=== PATIENT | male | born 1955 | race African-American/Black ===

== ENCOUNTER 2017-07-17 17:23 | Emergency (ER) | payer MEDICAID ==
[~2017-07-17] VITALS: Ht 172.7 cm; Wt 86.4 kg
[~2017-07-17 17:23] MED LIST: ALBU8I INH; COUM4TAB7 PO; CYCL-36 PO; IPRA17I INH; TRAM50TA PO
[2017-07-17 17:24] VITALS: BP 135/75; PULSE 86; RESP 18; TEMP 98.9; O2SAT 96
[2017-07-17] MEDS ORDERED: TRAM50TA PO (19:28)
[2017-07-17] MEDS ORDERED: MELO15TA20 PO (19:28)
[2017-07-17] MEDS ORDERED: AMLO5TAB2 PO (19:28)
[2017-07-17] MEDS ORDERED: APIX2.5T PO (19:28)
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
== END 2017-07-17 19:47 | disposition left against medical advice (07) ==
LOC: NEPK 17:23
DX: M54.41 Lumbago with sciatica, right side (principal); I10 Essential (primary) hypertension; Z79.899 Other long term (current) drug therapy
CPT/HCPCS: 99281

== ENCOUNTER 2018-08-03 14:29 | Inpatient (IN) ==
[2018-08-03] MEDS ORDERED: Morphine Inj 4 MG/ML Vial IV.PUSH ONE (14:42)
[2018-08-03] MEDS ORDERED: Sodium Chlor 0.9% Inj 500 ML IV.SIG SCH (15:00)
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
[2018-08-03 15:12] LABS: Baso % (Auto) 0.6 % (0.0-2.0); Eos # (Auto) 0.2 th/mm3 (0.0-0.4); Eos % (Auto) 2.6 % (0.0-4.0); Hematocrit 55.5 % (39.0-51.0); Hemoglobin 17.8 gm/dL (13.0-17.0); Lymph # (Auto) 3.1 th/mm3 (1.0-4.8); Lymph % (Auto) 43.3 % (9.0-44.0); Mean Corpuscular HGB Conc 32.1 % (32.0-36.0); Mean Corpuscular Hemoglobin 32.8 pg (27.0-34.0); Mean Corpuscular Volume 102.1 fL (80.0-100.0); Mono # (Auto) 0.2 th/mm3 (0.0-0.9); Mono % (Auto) 3.2 % (0.0-8.0); Neut # (Auto) 3.6 th/mm3 (1.8-7.7); Neut % (Auto) 50.3 % (16.0-70.0); Platelet Count 114 th/mm3 (150-450); Red Blood Count 5.43 mil/mm3 (4.50-5.90); White Blood Count 7.1 th/mm3 (4.0-11.0)
[2018-08-03 15:37] LABS: Alanine Aminotransferase 50 U/L (12-78); Albumin 4.1 g/dL (3.4-5.0); Anion Gap 10 meq/L (5-15); Aspartate Aminotransferase 44 U/L (15-37); Blood Urea Nitrogen 11 mg/dL (7-18); Calcium 8.3 mg/dL (8.5-10.1); Carbon Dioxide 21.7 meq/L (21.0-32.0); Chloride 106 meq/L (98-107); Glomerular Filtration Rate 45 mL/min (>89); Glucose,Random 216 mg/dL (74-106); Lipase 105 U/L (73-393); Potassium 4.8 meq/L (3.5-5.1); Sodium 138 meq/L (136-145)
[2018-08-03 15:38] LABS: Alkaline Phosphatase 83 U/L (45-117); Troponin I 0.08 ng/mL (0.02-0.05)
--- NOTE | 2018-08-03 15:42 | XR ---
EXAM DATE: 08/03/2018 3:26 PM EST AGE/SEX: 62 years / Male INDICATIONS: Chest pain. CLINICAL DATA: This is the patient's initial encounter. Patient reports that signs and symptoms have been present for 1 day and indicates a pain score of 3/10. MEDICAL/SURGICAL HISTORY: None. None. COMPARISON: [facility], XR CHEST PA AND LAT, 03/14/2016. . FINDINGS: The lungs are clear without infiltrate, nodule, or mass. There is no appreciable pleural effusion for technique. Heart and mediastinum are unremarkable. There are degenerative changes in both shoulders chronic in nature and not adequately characterized b y this technique. CONCLUSION: No acute cardiopulmonary disease. Electronically signed by: Abraham Agustin MD Board Certified Radiologist 08/03/2018 3:41 PM EST
--- NOTE | 2018-08-03 16:35 | CT ---
EXAM DATE: 08/03/2018 4:29 PM EST AGE/SEX: 62 years / Male INDICATIONS: Left sided chest pain and shortness of breath today. CLINICAL DATA: This is the patient's initial encounter. Patient reports that signs and symptoms have been present for 1 day and indicates a pain score of 7/10. MEDICAL/SURGICAL HISTORY: Deep venous thrombosis. Diabetes. Hypertension. pulmonary embolism No ne. RADIATION DOSE: 21.52 CTDI (mGy) COMPARISON: [facility], CHEST 1V SINGLE AP, 08/03/2018. . TECHNIQUE: Volumetric scanning was performed using a multi-row detector CT scanner during bolus infu janie of 49 ml Visipaque 320 (iodixanol) nonionic water-soluble contrast as a single exam dose. The d marilou was post processed with a variety of visualization algorithms including full volume maximum inten sity projection and sliding thin slab reformation. Using automated exposure control and adjustment o f the mA and/or kV according to patient size, radiation dose was kept as low as reasonably achievable to obtain optimal diagnostic quality images. DICOM format image data is available electronically fo r review and comparison. FINDINGS: There is extensive pulmonary embolus within bilateral upper lobes, bilateral lower lobes and some inv olvement of the right main pulmonary artery, right middle lobe. There are scattered areas of scarring in the lungs with vague areas of atelectasis and/or infiltrate in right middle lobe, left upper lobe , left lower lobe and the right upper lobe posteriorly. CONCLUSION: 1. Extensive PE. Electronically signed by: Abraham Agustin MD Board Certified Radiologist 08/03/2018 4:34 PM EST
[2018-08-03] MEDS ORDERED: Heparin 10,000 UNITS/10 ML Vial (for IV use) IV.PUSH STA (16:46)
[2018-08-03 17:05] LABS: Activated Partial Thrombo Time 26.1 sec (23.4-31.7); INR 1.1 Ratio
[2018-08-03] MEDS: Heparin Drip 25,000 UNIT/250 ML BAG IV.CONT PRN (17:10)
[2018-08-03] MEDS ORDERED: Bisacodyl 10 MG Supp RECTAL PRN (18:28)
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
[2018-08-03] MEDS: Senna/Docusate Sodium 8.6/50 MG Tablet PO SCH (21:10)
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
[2018-08-04 02:39] LABS: Hematocrit 47.5 % (39.0-51.0); Hemoglobin 15.9 gm/dL (13.0-17.0); Mean Corpuscular HGB Conc 33.5 % (32.0-36.0); Mean Corpuscular Hemoglobin 32.9 pg (27.0-34.0); Mean Corpuscular Volume 98.3 fL (80.0-100.0); Mean Platelet Volume 7.4 fL (7.0-11.0); Platelet Count 106 th/mm3 (150-450); Red Blood Count 4.83 mil/mm3 (4.50-5.90)
[2018-08-04] MEDS ORDERED: Sod Chloride 0.9% Inj 1,000 ML IV.SIG SCH ×2 (06:36→11:00)
[2018-08-04] MEDS: Senna/Docusate Sodium 8.6/50 MG Tablet PO SCH ×2 (08:50→20:58)
--- NOTE | 2018-08-04 10:20 | P.PN ---
Subjective Interval history: Nursing denies any acute changes overnight except for the patient complaining of dizziness and some chest pain. When I talked to the patient he says he has no chest pain at this time, says he has been dizzy for the last month. Not short of breath. Physical Exam Vital signs: Vital Signs 08/03/18 14:33 08/03/18 14:45 08/03/18 15:56 Temperature 98.4 F Pulse Rate 112 H 114 H 107 H Respiratory Rate 16 16 Blood Pressure 83/63 L 86/65 L Pulse Oximetry 93 L 94 L 100 08/03/18 16:48 08/03/18 17:57 08/03/18 17:58 Temperature Pulse Rate 112 H 109 H Respiratory Rate 16 22 Blood Pressure 99/77 L 102/78 Pulse Oximetry 98 98 98 08/03/18 18:44 08/03/18 20:10 08/03/18 21:00 Temperature 97.7 F Pulse Rate 99 H Respiratory Rate 18 Blood Pressure 97/74 L Pulse Oximetry 98 100 99 08/03/18 22:00 08/03/18 23:00 08/03/18 23:29 Temperature 97.7 F Pulse Rate 116 H 98 H 97 H Respiratory Rate 18 Blood Pressure 96/67 L Pulse Oximetry 98 08/04/18 00:00 08/04/18 01:00 08/04/18 02:00 Temperature Pulse Rate 96 H 92 H 90 Respiratory Rate Blood Pressure Pulse Oximetry 08/04/18 03:00 08/04/18 04:00 08/04/18 05:00 Temperature 97.8 F Pulse Rate 90 88 88 Respiratory Rate 18 Blood Pressure 88/58 L Pulse Oximetry 94 L 08/04/18 06:00 Temperature Pulse Rate 88 Respiratory Rate Blood Pressure Pulse Oximetry Intake & Output 08/03/18 08/04/18 08/04/18 18:59 06:59 18:59 Intake Total 500 / 500 480 / 480 800 / 800 Balance 500 / 500 480 / 480 800 / 800 Weight 79.379 kg 82 kg Intake: IV 500 / 500 800 / 800 NS Inj 1,000 ML @ 500 mls/hr IV 800 / 800 .SIG BOLUS YARI Rx#:[id number] NS Inj 500 ML @ 1000 mls/hr IV. 500 / 500 SIG BOLUS YARI Rx#:[id number] Oral 480 / 480 Other: # Voids 0 Date of Last Bowel Movement 08/03/18 # Bowel Movements 0 Narrative: Clear lungs bilaterally, unlabored breathing Heart sounds regular rate and rhythm, no murmurs Abdomen soft Lower extremities nonedematous, nontender to deep palpation Results - Labs CBC & Chem 7: 08/06/18 05:14 08/06/18 05:14 Laboratory Results - last 24 hr 08/03/18 08/03/18 08/03/18 14:40 14:40 14:40 WBC 7.1 RBC 5.43 Hgb 17.8 H Hct 55.5 H MCV 102.1 H MCH 32.8 MCHC 32.1 RDW 15.0 Plt Count 114 L MPV 8.0 Neut % (Auto) 50.3 Lymph % (Auto) 43.3 White % (Auto) 3.2 Eos % (Auto) 2.6 Baso % (Auto) 0.6 Neut # (Auto) 3.6 Lymph # (Auto) 3.1 White # (Auto) 0.2 Eos # (Auto) 0.2 Baso # (Auto) 0.0 WBC Differential . Differential Comment Auto diff final PT INR APTT D-Dimer Quant (PE/DVT) 10.99 H Sodium 138 Potassium 4.8 Chloride 106 Carbon Dioxide 21.7 Anion Gap 10 BUN 11 Creatinine 1.86 H Estimated GFR 45 L POC Glucose Random Glucose 216 H Calcium 8.3 L Total Bilirubin 1.1 H AST 44 H ALT 50 Alkaline Phosphatase 83 Troponin I 0.08 H Total Protein 8.0 Albumin 4.1 Lipase 105 08/03/18 08/03/18 08/04/18 14:40 18:44 01:13 WBC RBC Hgb Hct MCV MCH MCHC RDW Plt Count MPV Neut % (Auto) Lymph % (Auto) White % (Auto) Eos % (Auto) Baso % (Auto) Neut # (Auto) Lymph # (Auto) White # (Auto) Eos # (Auto) Baso # (Auto) WBC Differential Differential Comment PT 11.0 INR 1.1 APTT 26.1 277.5 H* D-Dimer Quant (PE/DVT) Sodium Potassium Chloride Carbon Dioxide Anion Gap BUN Creatinine Estimated GFR POC Glucose 90 Random Glucose Calcium Total Bilirubin AST ALT Alkaline Phosphatase Troponin I Total Protein Albumin Lipase 08/04/18 08/04/18 08/04/18 02:34 02:34 05:11 WBC 7.0 RBC 4.83 Hgb 15.9 Hct 47.5 MCV 98.3 D MCH 32.9 MCHC 33.5 RDW 15.0 Plt Count 106 L MPV 7.4 Neut % (Auto) Lymph % (Auto) White % (Auto) Eos % (Auto) Baso % (Auto) Neut # (Auto) Lymph # (Auto) White # (Auto) Eos # (Auto) Baso # (Auto) WBC Differential Differential Comment PT INR APTT Greater than 277.5 H* 101.2 H* D D-Dimer Quant (PE/DVT) Sodium Potassium Chloride Carbon Dioxide Anion Gap BUN Creatinine Estimated GFR POC Glucose Random Glucose Calcium Total Bilirubin AST ALT Alkaline Phosphatase Troponin I Total Protein Albumin Lipase 08/04/18 08:48 WBC RBC Hgb Hct MCV MCH MCHC RDW Plt Count MPV Neut % (Auto) Lymph % (Auto) White % (Auto) Eos % (Auto) Baso % (Auto) Neut # (Auto) Lymph # (Auto) White # (Auto) Eos # (Auto) Baso # (Auto) WBC Differential Differential Comment PT INR APTT D-Dimer Quant (PE/DVT) Sodium Potassium Chloride Carbon Dioxide Anion Gap BUN Creatinine Estimated GFR POC Glucose 257 H Random Glucose Calcium Total Bilirubin AST ALT Alkaline Phosphatase Troponin I Total Protein Albumin Lipase - Imaging Impressions Venous Doppler Study 08/03/18 00:00 CONCLUSION: 1. Nonocclusive DVT on the right. Venous Doppler Study 08/03/18 00:00 CONCLUSION: 1. The study is negative for bilateral upper extremity deep venous thrombosis. Chest X-Ray 08/03/18 14:43 CONCLUSION: No acute cardiopulmonary disease. Chest CTA 08/03/18 15:48 CONCLUSION: 1. Extensive PE. Assessment and Plan - Plan Patient is a very pleasant 62-year-old -[place]i male with a past medical history of DVT, PE, diabetes, and hypertension who presents to the emergency room with a complaint of upper abdominal and chest pain as well as shortness of breath. He reports that he had a DVT in his left leg and subsequent PE about 4 or 5 years ago. He has not been on any anticoagulation. Pulmonary embolism -suspect chronic as well as acute -Continue heparin drip started in ED -Appreciate hematology input -Echocardiogram results pending Chest pain with elevated troponin -Could be due to demand ischemia versus right heart strain coupled with acute kidney injury, trending troponins, cardiology consultation pending, I have put a call out to interventional radiology to see if PE needs thrombolysis are not given the patient's borderline blood pressures -Echo results pending Acute kidney injury -bmp pending today -IVFs Chronic conditions: Hypertension-we will restart home medications if indicated when confirmed Diabetes-questionable if patient currently has diabetes. Monitor blood sugar and start sliding scale if indicated DVT prophylaxis: Heparin drip Addendum: Case discussed with Dr. Cintron from radiology and Dr. Quinonez from ICU. Patient likely good candidate for central line-based TPA, will do stat transfer.
[2018-08-04] MEDS ORDERED: Dextrose 50% in Water 50 ML Vial IV.PUSH PRN ×2 (11:20→12:59)
[2018-08-04 11:43] LABS: Calcium 8.2 mg/dL (8.5-10.1); Carbon Dioxide 23.7 meq/L (21.0-32.0); Potassium 4.1 meq/L (3.5-5.1)
[2018-08-04] MEDS ORDERED: Insulin NovoLOG Aspart Correctional Sugar Inj SQ SCH (12:00)
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
[2018-08-04] MEDS ORDERED: Alteplase Bolus 9 MG/9 ML Syringe IV.PUSH ONE (12:45)
[2018-08-04] MEDS ORDERED: ALTEPLASE DRIP IV.SIG ONE (13:00)
[2018-08-04] MEDS ORDERED: Alteplase Drip 40 MG in Syringe/Bag 1 EACH IV.SIG ONE (13:00)
--- NOTE | 2018-08-04 13:02 | ECHRPT ---
Indication: Shortness of Breath CONCLUSIONS Normal left ventricular size. Mild concentric left ventricular hypertrophy. The left ventricular systolic function is normal with an estimated ejection fraction in the range of 55-60%. The right atrial size is [id number] dilated. Trace mitral valve regurgitation. Mitral annular calcification is present. There is mild tricuspid valve regurgitation. The estimated pulmonary arterial pressure is 61 mmHg. Mild pulmonary valve regurgitation. The right ventricle is moderately dilated. The right ventricular systoilc function is mildly decreased. BP: / HR: Rhythm: MEASUREMENTS (Male / Female) Normal Values Technical Quality:Fair 2D ECHO LV Diastolic Diameter PLAX 3.2 cm 4.2 - 5.9 / 3.9 - 5.3 cm LV Systolic Diameter PLAX 2.3 cm IVS Diastolic Thickness 1.2 cm 0.6 - 1.0 / 0.6 - 0.9 cm LVPW Diastolic Thickness 1.2 cm 0.6 - 1.0 / 0.6 - 0.9 cm LV Relative Wall Thickness 0.7 RV Internal Dim ED PLAX 3.7 cm LVOT Diameter 2.1 cm Aortic Root Diameter 3.2 cm LA Systolic Diameter LX 2.5 cm 3.0 - 4.0 / 2.7 - 3.8 cm DOPPLER AV Peak Velocity 111.0 cm/s AV Peak Gradient 4.9 mmHg LVOT Peak Velocity 81.4 cm/s LVOT Peak Gradient 2.7 mmHg AV Area Cont Eq pk 2.5 cm Mitral E Point Velocity 36.0 cm/s Mitral A Point Velocity 47.9 cm/s Mitral E to A Ratio 0.8 LV E' Lateral Velocity 7.1 cm/s Mitral E to LV E' Lateral Ratio 5.1 LV E' Septal Velocity 4.0 cm/s Mitral E to LV E' Septal Ratio 8.9 TR Peak Velocity 357.0 cm/s TR Peak Gradient 51.0 mmHg Right Atrial Pressure 10.0 mmHg Pulmonary Artery Systolic Pressu 61.0 mmHg Right Ventricular Systolic Press 61.0 mmHg PV Peak Velocity 71.9 cm/s PV Peak Gradient 2.1 mmHg FINDINGS LEFT VENTRICLE Normal left ventricular size. Mild concentric left ventricular hypertrophy. The left ventricular systolic function is normal with an estimated ejection fraction in the range of 55-60%. RIGHT VENTRICLE The right ventricle is moderately dilated. The right ventricular systoilc function is mildly decreased. LEFT ATRIUM The left atrial size is normal. RIGHT ATRIUM The right atrial size is [id number] dilated. ATRIAL SEPTUM Normal atrial septal thickness without atrial level shunting by limited color doppler interrogation. AORTA The aortic root and proximal ascending aorta are normal in size on limited imaging. MITRAL VALVE Trace mitral valve regurgitation. Mitral annular calcification is present. AORTIC VALVE Trileaflet aortic valve. No aortic valve stenosis or regurgitation. TRICUSPID VALVE There is mild tricuspid valve regurgitation. The estimated pulmonary arterial pressure is 61 mmHg. PULMONARY VALVE Mild pulmonary valve regurgitation. VESSELS The inferior vena cava is normal in size. PERICARDIUM No pericardial effusion. Patrice Roland MD, FACC (Electronically Signed) Final Date:04 August 2018 13:01 Amended: 04 August 2018 13:19
[2018-08-04] MEDS: Sod Chloride 0.9% Inj 1,000 ML IV.CONT SCH (13:26)
[2018-08-04] MEDS: Pantoprazole Inj 40 MG Vial IV.PUSH SCH (13:26)
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
--- NOTE | 2018-08-04 15:32 | ECG ---
Date Performed: 08/03/2018 Time Performed: 14:36:24 PTAGE: 62 years EKG: SINUS TACHYCARDIA POSSIBLE RIGHT ATRIAL ENLARGEMENT POSSIBLE LEFT ATRIAL ENLARGEMENT INCOMP LETE RIGHT BUNDLE BRANCH BLOCK RIGHT VENTRICULAR HYPERTROPHY ST DEVIATION AND MODERATE T-WAVE ABNORMA LITY, CONSIDER ANTERIOR ISCHEMIA When compared to previous tracing, sinus rate is faster, and ST Depr ession and T wave invertions are more prominent, consider Ischemia. ABNORMAL ECG PREVIOUS TRACING : 06/30/2013 15.53 DOCTOR: Theron Gee Interpretating Date/Time 08/04/2018 15:31:37
[2018-08-04] MEDS: Heparin Drip 25,000 UNIT/250 ML BAG IV.CONT PRN (23:01)
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
[2018-08-05] MEDS: Pantoprazole Inj 40 MG Vial IV.PUSH SCH ×2 (02:45→13:09)
[2018-08-05] MEDS: Sod Chloride 0.9% Inj 1,000 ML IV.CONT SCH ×2 (03:29→16:18)
[2018-08-05] MEDS ORDERED: Chlorhexidine Gluconate 2% 1 Pack (2 Cloths) TOPICAL PRN (04:00)
[2018-08-05] MEDS: Chlorhexidine Gluconate 2% 1 Pack (2 Cloths) TOPICAL SCH (04:48)
[2018-08-05 05:47] LABS: Hematocrit 40.3 % (39.0-51.0); Hemoglobin 13.6 gm/dL (13.0-17.0); Mean Corpuscular HGB Conc 33.6 % (32.0-36.0); Mean Corpuscular Hemoglobin 33.3 pg (27.0-34.0); Mean Corpuscular Volume 99.1 fL (80.0-100.0); Mean Platelet Volume 7.9 fL (7.0-11.0); Platelet Count 78 th/mm3 (150-450); Red Blood Count 4.07 mil/mm3 (4.50-5.90); Red Cell Distribution Width 14.7 % (11.6-17.2); White Blood Count 4.7 th/mm3 (4.0-11.0)
[2018-08-05 06:01] LABS: Activated Partial Thrombo Time 74.4 sec (23.4-31.7)
[2018-08-05] MEDS: Acetaminophen 325 MG Tablet PO PRN (08:19)
[2018-08-05] MEDS: Senna/Docusate Sodium 8.6/50 MG Tablet PO SCH ×2 (08:20→21:02)
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
[2018-08-05 09:50] LABS: Carbon Dioxide 24.1 meq/L (21.0-32.0); Potassium 4.2 meq/L (3.5-5.1)
[2018-08-05 11:51] LABS: Baso % (Auto) 0.6 % (0.0-2.0); Eos # (Auto) 0.1 th/mm3 (0.0-0.4); Eos % (Auto) 3.8 % (0.0-4.0); Hematocrit 40.5 % (39.0-51.0); Hemoglobin 13.6 gm/dL (13.0-17.0); Lymph # (Auto) 1.2 th/mm3 (1.0-4.8); Lymph % (Auto) 29.8 % (9.0-44.0); Mean Corpuscular HGB Conc 33.5 % (32.0-36.0); Mean Corpuscular Hemoglobin 33.5 pg (27.0-34.0); Mean Corpuscular Volume 99.9 fL (80.0-100.0); Mean Platelet Volume 8.1 fL (7.0-11.0); Mono # (Auto) 0.2 th/mm3 (0.0-0.9); Mono % (Auto) 6.1 % (0.0-8.0); Neut # (Auto) 2.3 th/mm3 (1.8-7.7); Neut % (Auto) 59.7 % (16.0-70.0); Platelet Count 77 th/mm3 (150-450); Red Blood Count 4.05 mil/mm3 (4.50-5.90); Red Cell Distribution Width 14.8 % (11.6-17.2); White Blood Count 3.9 th/mm3 (4.0-11.0)
[2018-08-05 12:05] LABS: Activated Partial Thrombo Time 62.2 sec (23.4-31.7)
--- NOTE | 2018-08-05 14:57 | P.PNONC ---
Subjective Interval history: Patient lying in bed, visiting with his sister and nephew. He has no complaints at this time. He denies any bleeding. Status post Activase yesterday, currently on heparin drip. Denies any shortness of breath. Objective Vital Signs/Intake & Output: Vital Signs 08/04/18 16:00 08/04/18 18:00 08/04/18 19:48 Temperature 98.5 F Pulse Rate 82 83 Respiratory Rate 22 Blood Pressure 116/79 Pulse Oximetry 100 97 08/04/18 20:00 08/04/18 22:00 08/05/18 00:00 Temperature 98.8 F 98.2 F Pulse Rate 78 75 75 Respiratory Rate 19 16 Blood Pressure 98/71 L 98/65 L Pulse Oximetry 100 98 08/05/18 02:00 08/05/18 04:00 08/05/18 06:00 Temperature 98.3 F Pulse Rate 72 69 72 Respiratory Rate 15 Blood Pressure 97/61 L Pulse Oximetry 100 08/05/18 08:00 08/05/18 08:54 08/05/18 10:00 Temperature 97.7 F Pulse Rate 71 65 Respiratory Rate 17 Blood Pressure 102/66 Pulse Oximetry 97 97 08/05/18 12:00 08/05/18 13:22 08/05/18 14:00 Temperature 97.4 F L Pulse Rate 61 59 L 73 Respiratory Rate 15 18 Blood Pressure 111/63 Pulse Oximetry 100 Intake & Output 08/04/18 08/05/18 08/05/18 18:59 06:59 18:59 Intake Total 1041 / 1041 1250 / 1250 Output Total 500 / 500 425 / 425 Balance 541 / 541 825 / 825 Weight 81.3 kg Intake: IV 1041 / 1041 1250 / 1250 Heparin/D5W 25,000 U/250 mL 25, 250 / 250 000 unit In 250 ml @ Per Protocol IV.CONT TITRATE PRN Rx #:[id number] NS Inj 1,000 ML @ 75 mls/hr IV. 1000 / 1000 CONT .[id number] AMY Rx#:[id number] Activase Drip 41 MG In Bag/ 41 / 41 Syringe 1 EACH @ 40 mls/hr IV. SIG ONCE ONE Rx#:[id number] NS Inj 1,000 ML @ 500 mls/hr IV 1000 / 1000 .SIG BOLUS AMY Rx#:[id number] Oral 0 / 0 0 / 0 Output: Urine 500 / 500 425 / 425 Other: # Voids 0 Date of Last Bowel Movement 08/03/18 08/03/18 # Bowel Movements 0 0 Result Diagrams: 08/05/18 11:07 08/05/18 05:30 Laboratory Results: Laboratory Results - last 24 hr 08/04/18 08/04/18 08/05/18 12:45 18:32 01:10 WBC RBC Hgb Hct MCV MCH MCHC RDW Plt Count MPV Prelim Diff (Auto) Neut % (Auto) Lymph % (Auto) [place] % (Auto) Eos % (Auto) Baso % (Auto) Neut # (Auto) Lymph # (Auto) [place] # (Auto) Eos # (Auto) Baso # (Auto) WBC Differential Differential Comment APTT 68.5 H D 88.8 H D Fibrinogen Sodium Potassium Chloride Carbon Dioxide Anion Gap BUN Creatinine Estimated GFR POC Glucose Random Glucose Calcium Nasal Screen MRSA (PCR) Not detected 08/05/18 08/05/18 08/05/18 05:30 05:30 05:30 WBC 4.7 RBC 4.07 L Hgb 13.6 D Hct 40.3 MCV 99.1 MCH 33.3 MCHC 33.6 RDW 14.7 Plt Count 78 L MPV 7.9 Prelim Diff (Auto) Neut % (Auto) Lymph % (Auto) [place] % (Auto) Eos % (Auto) Baso % (Auto) Neut # (Auto) Lymph # (Auto) [place] # (Auto) Eos # (Auto) Baso # (Auto) WBC Differential Differential Comment APTT 74.4 H Fibrinogen 167 L Sodium 142 Potassium 4.2 Chloride 112 H Carbon Dioxide 24.1 Anion Gap 6 BUN 15 Creatinine 1.22 Estimated GFR 73 L POC Glucose Random Glucose 92 Calcium 8.0 L Nasal Screen MRSA (PCR) 08/05/18 08/05/18 08/05/18 05:33 11:05 11:07 WBC 3.9 L RBC 4.05 L Hgb 13.6 Hct 40.5 MCV 99.9 MCH 33.5 MCHC 33.5 RDW 14.8 Plt Count 77 L MPV 8.1 Prelim Diff (Auto) Account Management Specialist Neut % (Auto) 59.7 Lymph % (Auto) 29.8 [place] % (Auto) 6.1 Eos % (Auto) 3.8 Baso % (Auto) 0.6 Neut # (Auto) 2.3 Lymph # (Auto) 1.2 [place] # (Auto) 0.2 Eos # (Auto) 0.1 Baso # (Auto) 0.0 WBC Differential . Differential Comment Auto diff final APTT Fibrinogen Sodium Potassium Chloride Carbon Dioxide Anion Gap BUN Creatinine Estimated GFR POC Glucose 91 95 Random Glucose Calcium Nasal Screen MRSA (PCR) 08/05/18 11:07 WBC RBC Hgb Hct MCV MCH MCHC RDW Plt Count MPV Prelim Diff (Auto) Neut % (Auto) Lymph % (Auto) [place] % (Auto) Eos % (Auto) Baso % (Auto) Neut # (Auto) Lymph # (Auto) [place] # (Auto) Eos # (Auto) Baso # (Auto) WBC Differential Differential Comment APTT 62.2 H Fibrinogen 206 L Sodium Potassium Chloride Carbon Dioxide Anion Gap BUN Creatinine Estimated GFR POC Glucose Random Glucose Calcium Nasal Screen MRSA (PCR) Medications: Active Medications Generic Name Dose Route Start Last Admin Trade Name Freq PRN Reason Stop Dose Admin Acetaminophen 650 mg 08/03/18 18:28 08/05/18 08:19 Tylenol PO 650 mg Q4H PRN Administration Temp > 100.4 Albuterol 1 ampul 08/05/18 14:00 08/05/18 13:21 Duoneb Neb (Amy) NEB 1 ampul Q6HR WHILE AWAKE NEB AMY Administration Chlorhexidine Gluconate 3 pack 08/05/18 04:00 08/05/18 04:48 Chlorhexidine 2% Cloth TOPICAL 08/10/18 03:59 3 pack DAILY@0400 AMY Administration Heparin Sodium/Dextrose 25,000 unit in 250 mls @ 0 mls/hr 08/03/18 16:46 06:34 Heparin/D5w 25,000 U/250 Ml IV.CONT 800 units/hr TITRATE PRN 8 mls/hr Per Protocol Titration Protocol Per Protocol Sodium Chloride 1,000 mls @ 75 mls/hr 08/04/18 13:30 08/05/18 03:29 Ns Inj IV.CONT 75 mls/hr .[id number] AMY Administration Pantoprazole Sodium 40 mg 08/04/18 14:00 08/05/18 13:09 Protonix Inj IV.PUSH 40 mg Q12H AMY Administration Senna/Docusate Sodium 1 tab 08/03/18 21:00 08/05/18 08:20 Margoth-Colace PO Not Given BID AMY Sodium Chloride 2 ml 08/03/18 21:00 08/05/18 08:20 Ns Flush IV.FLUSH 2 ml BID AMY Administration Objective Remarks: GENERAL: Well-nourished, well-developed male patient, in no acute distress. SKIN: Warm and dry. HEAD: Normocephalic. Scar to right cheek, anterior to ear. Droop to right upper lip, chronic per pt. EYES: No scleral icterus. No injection or drainage. PEARLA MOUTH: [place], moist mucous membranes. No petechiae, ulcers or lesions noted. NECK: Supple, trachea midline. CARDIOVASCULAR: Regular rate and rhythm without murmurs. RESPIRATORY: Anterior breath sounds clear, equal bilaterally. No accessory muscle use. GASTROINTESTINAL: Abdomen soft, non-tender, nondistended. EXTREMITIES: No cyanosis, or edema. MUSCULOSKELETAL: Adequate muscle tone. NEUROLOGICAL: No obvious focal deficit. Awake, alert, and oriented x3. Equal strength bilaterally. PSYCHIATRIC: Appropriate mood and affect; insight and judgment normal. Assessment/Plan - Plan Plan: 1. Pulmonary embolism, with right heart strain, s/p activase infusion on . Continues on heparin drip, APTT 74.4 today. 2. Pt with past history of unprovoked DVTs, now with P.E. requiring activase. Pt will need lifelong anticoagulation. 3. Thrombocytopenia, possibly consumptive. We will continue to monitor. 4. Continue to monitor closely for bleeding and neuro checks per policy. - Attending Statement The exam, history, and the medical decision-making described in the above note were completed with the assistance of the mid-level provider. I reviewed and agree with the findings presented. I attest that I had a [id number] encounter with the patient on the same day, and personally performed and documented my assessment and findings in the medical record. Patient states that his dizziness and shortness of breath has improved Patient had TPA for extensive pulmonary embolism. He tolerated well Now he is on heparin drip He is doing well we will transition heparin to oral anticoagulant Tomorrow
[2018-08-05] MEDS: Insulin NovoLOG Aspart Correctional Sugar Inj SQ SCH ×2 (17:16→23:50)
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
--- NOTE | 2018-08-06 00:21 | P.PNCA ---
Subjective Interval history: No events overnight Breathing much better overall Medications and Allergies Active Medications: Active Medications Acetaminophen (Tylenol) 650 mg PO Q4H PRN PRN Reason: Temp > 100.4 Last Admin: 08/05/18 08:19 Dose: 650 mg Al Hydroxide/Mg Hydroxide (Milk Of Magnesia Liq) 30 ml PO Q12H PRN PRN Reason: Mild Constipation Albuterol (Duoneb Neb ([facility])) 1 ampul NEB Q6HR WHILE AWAKE NEB [facility] Last Admin: 08/05/18 19:18 Dose: 1 ampul Bisacodyl (Dulcolax Supp) 10 mg RECTAL DAILY PRN PRN Reason: SEVERE CONSITIPATION Chlorhexidine Gluconate (Chlorhexidine 2% Cloth) 3 pack TOPICAL DAILY@0400 YARI Stop: 08/10/18 03:59 Last Admin: 08/05/18 04:48 Dose: 3 pack Chlorhexidine Gluconate (Chlorhexidine 2% Cloth) 3 pack TOPICAL DAILY@0400 PRN PRN Reason: Extra cloth needed Stop: 08/10/18 03:59 Dextrose (D50w Vial) 50 ml IV.PUSH UNSCH PRN PRN Reason: PER HYPOGLYCEMIA PROTOCOL Glucagon (Glucagon Inj) 1 mg OTHER PRN PRN PRN Reason: for Hypoglycemia Protocol Heparin Sodium/Dextrose (Heparin/D5w 25,000 U/250 Ml) 25,000 unit in 250 mls @ 0 mls/hr IV.CONT TITRATE PRN; Protocol PRN Reason: Per Protocol Last Titration: 08/05/18 18:17 Dose: 800 units/hr, 8 mls/hr Sodium Chloride (Ns Inj) 1,000 mls @ 75 mls/hr IV.CONT .[id number] [facility] Last Infusion: 08/05/18 18:17 Dose: 75 mls/hr Insulin Aspart (Novolog Insulin Correctional Sugar Inj) 0 unit SQ Q6HR [facility]; Protocol Last Admin: 08/05/18 23:50 Dose: Not Given Lactulose (Lactulose Liq) 30 ml PO DAILY PRN PRN Reason: SEVERE CONSITIPATION Ondansetron HCl (Zofran Inj) 4 mg IV.PUSH Q6H PRN PRN Reason: NAUSEA OR VOMITING Pantoprazole Sodium (Protonix Inj) 40 mg IV.PUSH Q12H [facility] Last Admin: 08/05/18 13:09 Dose: 40 mg Senna/Docusate Sodium (Margoth-Colace) 1 tab PO BID [facility] Last Admin: 08/05/18 21:02 Dose: Not Given Sennosides (Senokot) 17.2 mg PO Q12H PRN PRN Reason: Moderate Constipation Sodium Chloride (Ns Flush) 2 ml IV.FLUSH PRN PRN PRN Reason: FLUSH AFTER USING IV ACCESS Sodium Chloride (Ns Flush) 2 ml IV.FLUSH BID [facility] Last Admin: 08/05/18 21:02 Dose: 2 ml Allergies Allergy/AdvReac Type Severity Reaction Status Date / Time No Known Allergies Allergy Unverified 05/16/18 16:37 Home Medications Medication Instructions Recorded Confirmed Type amlodipine mg PO DAILY 08/03/18 History tramadol mg PO PRN 08/03/18 History Physical Exam Vital signs: Vital Signs 08/05/18 02:00 08/05/18 04:00 08/05/18 06:00 Temperature 98.3 F Pulse Rate 72 69 72 Respiratory Rate 15 Blood Pressure 97/61 L Pulse Oximetry 100 08/05/18 08:00 08/05/18 08:54 08/05/18 10:00 Temperature 97.7 F Pulse Rate 71 65 Respiratory Rate 17 Blood Pressure 102/66 Pulse Oximetry 97 97 08/05/18 12:00 08/05/18 13:22 08/05/18 14:00 Temperature 97.4 F L Pulse Rate 61 59 L 73 Respiratory Rate 15 18 Blood Pressure 111/63 Pulse Oximetry 100 08/05/18 16:00 08/05/18 18:00 08/05/18 18:06 Temperature 97.6 F Pulse Rate 70 76 81 Respiratory Rate 17 Blood Pressure 115/66 Pulse Oximetry 99 08/05/18 19:00 08/05/18 19:20 08/05/18 19:57 Temperature 98 F Pulse Rate 72 76 84 Respiratory Rate 18 16 Blood Pressure 125/76 Pulse Oximetry 95 08/05/18 20:00 08/05/18 21:00 08/05/18 22:00 Temperature Pulse Rate 75 78 70 Respiratory Rate Blood Pressure Pulse Oximetry 95 08/05/18 22:57 08/06/18 00:00 Temperature 98.1 F Pulse Rate 80 88 Respiratory Rate 16 Blood Pressure 121/79 Pulse Oximetry 92 L Intake & Output 08/05/18 08/05/18 08/06/18 06:59 18:59 06:59 Intake Total 1250 / 1250 1361 / 1361 Output Total 425 / 425 1800 / 1800 Balance 825 / 825 -439 / -439 Weight 81.3 kg Intake: IV 1250 / 1250 1241 / 1241 Heparin/D5W 25,000 U/250 mL 25, 250 / 250 92 / 92 000 unit In 250 ml @ Per Protocol IV.CONT TITRATE PRN Rx #:[id number] NS Inj 1,000 ML @ 75 mls/hr IV. 1000 / 1000 1149 / 1149 CONT .[id number] YARI Rx#:[id number] Oral 0 / 0 120 / 120 Output: Urine 425 / 425 1800 / 1800 Other: # Voids 0 2 Date of Last Bowel Movement 08/03/18 08/03/18 08/05/18 # Bowel Movements 0 0 Narrative: GENERAL: Well-developed elderly -[place] male patient currently in mild distress. Mildly anxious SKIN: Focused skin assessment warm/dry. HEAD: Atraumatic. Normocephalic. EYES: Pupils equal and round. No scleral icterus. No injection or drainage. ENT: No nasal bleeding or discharge. Mucous membranes pink and moist. NECK: Trachea midline. No JVD. Previous well-healed tracheostomy scar CARDIOVASCULAR: Regular rate and rhythm. No murmur appreciated. RESPIRATORY: No accessory muscle use. Clear to auscultation. Breath sounds equal bilaterally. GASTROINTESTINAL: Abdomen soft, non-tender, nondistended. Hepatic and splenic margins not palpable. MUSCULOSKELETAL: No obvious deformities. No clubbing. NEUROLOGICAL: Awake and alert oriented x3. No obvious cranial nerve deficits. Motor grossly within normal limits. Normal speech. Results 08/05/18 11:07 08/05/18 05:30 Cardiac Enzymes 08/04/18 Range/Units 10:52 Troponin I 2.83 H* (0.02-0.05) ng/mL Coagulation 08/04/18 08/04/18 08/04/18 Range/Units 01:13 02:34 05:11 APTT 277.5 H* Greater than 277.5 H* 101.2 H* D (23.4-31.7) sec 08/04/18 08/04/18 08/05/18 Range/Units 09:37 18:32 01:10 APTT 29.7 D 68.5 H D 88.8 H D (23.4-31.7) sec 18 18 08/05/18 Range/Units 05:30 11:07 19:30 APTT 74.4 H 62.2 H 56.2 H (23.4-31.7) sec CBC 08/04/18 08/05/18 08/05/18 Range/Units 02:34 05:30 11:07 WBC 7.0 4.7 3.9 L (4.0-11.0) th/mm3 RBC 4.83 4.07 L 4.05 L (4.50-5.90) mil/mm3 Hgb 15.9 13.6 D 13.6 (13.0-17.0) gm/dL Hct 47.5 40.3 40.5 (39.0-51.0) % Plt Count 106 L 78 L 77 L (150-450) th/mm3 Neut # (Auto) 2.3 (1.8-7.7) th/mm3 Lymph # (Auto) 1.2 (1.0-4.8) th/mm3 [place] # (Auto) 0.2 (0.0-0.9) th/mm3 Eos # (Auto) 0.1 (0.0-0.4) th/mm3 Baso # (Auto) 0.0 (0.0-0.2) th/mm3 Comprehensive Metabolic Panel 08/04/18 08/05/18 Range/Units 10:52 05:30 Sodium 141 142 (136-145) meq/L Potassium 4.1 4.2 (3.5-5.1) meq/L Chloride 110 H 112 H (98-107) meq/L Carbon Dioxide 23.7 24.1 (21.0-32.0) meq/L BUN 20 H 15 (7-18) mg/dL Creatinine 1.38 H 1.22 (0.60-1.30) mg/dL Calcium 8.2 L 8.0 L (8.5-10.1) mg/dL Intake and Output 08/05/18 08/05/18 08/06/18 14:59 22:59 06:59 Intake Total 1361 / 1361 Output Total 1800 / 1800 Balance -439 / -439 Intake: IV 1241 / 1241 Heparin/D5W 25,000 U/250 mL 25, 92 / 92 000 unit In 250 ml @ Per Protocol IV.CONT TITRATE PRN Rx #:[id number] NS Inj 1,000 ML @ 75 mls/hr IV. 1149 / 1149 CONT .[id number] YARI Rx#:[id number] Oral 120 / 120 Output: Urine 1800 / 1800 Other: # Voids 2 Date of Last Bowel Movement 08/03/18 08/05/18 # Bowel Movements 0 Assessment and Plan - Assessment (1) DVT (deep venous thrombosis) Code(s): I82.409 - Acute embolism and thrombosis of unspecified deep veins of unspecified lower extremity Status: Acute (2) NSTEMI (non-ST elevated myocardial infarction) Code(s): I21.4 - Non-ST elevation (NSTEMI) myocardial infarction Status: Acute - Plan 1) DVT/PE with right heart strain s/p TPA, now on heparin drip Plan to transition to oral anticoagulation Unprovoked with previous history of DVT/PE Most likely life-long anticoagulation per Heme/Onc 2) Elevated troponin Type 2 due to right heart strain No further work up necessary 3) Plan to repeat echo before discharge
[2018-08-06] MEDS: Acetaminophen 325 MG Tablet PO PRN ×2 (01:09→07:46)
[2018-08-06] MEDS: Pantoprazole Inj 40 MG Vial IV.PUSH SCH ×2 (01:10→13:38)
[2018-08-06] MEDS: Sod Chloride 0.9% Inj 1,000 ML IV.CONT SCH ×3 (02:49→18:25)
[2018-08-06] MEDS: Chlorhexidine Gluconate 2% 1 Pack (2 Cloths) TOPICAL SCH (03:02)
[2018-08-06] MEDS: Heparin Drip 25,000 UNIT/250 ML BAG IV.CONT PRN (03:55)
[2018-08-06] MEDS: Insulin NovoLOG Aspart Correctional Sugar Inj SQ SCH ×4 (05:22→23:52)
[2018-08-06 06:26] LABS: Hematocrit 39.8 % (39.0-51.0); Hemoglobin 13.2 gm/dL (13.0-17.0); Mean Corpuscular HGB Conc 33.3 % (32.0-36.0); Mean Corpuscular Hemoglobin 33.4 pg (27.0-34.0); Mean Corpuscular Volume 100.4 fL (80.0-100.0); Mean Platelet Volume 8.1 fL (7.0-11.0); Platelet Count 83 th/mm3 (150-450); Red Blood Count 3.96 mil/mm3 (4.50-5.90); Red Cell Distribution Width 14.9 % (11.6-17.2)
[2018-08-06 06:55] LABS: Alanine Aminotransferase 32 U/L (12-78); Albumin 3.2 g/dL (3.4-5.0); Anion Gap 7 meq/L (5-15); Aspartate Aminotransferase 31 U/L (15-37); Blood Urea Nitrogen 11 mg/dL (7-18); Calcium 8.4 mg/dL (8.5-10.1); Carbon Dioxide 23.7 meq/L (21.0-32.0); Chloride 111 meq/L (98-107); Glomerular Filtration Rate 79 mL/min (>89); Glucose,Random 82 mg/dL (74-106); Potassium 3.8 meq/L (3.5-5.1); Sodium 142 meq/L (136-145)
[2018-08-06 06:59] LABS: Alkaline Phosphatase 53 U/L (45-117); Total Protein 6.2 g/dL (6.4-8.2)
[2018-08-06] MEDS: Senna/Docusate Sodium 8.6/50 MG Tablet PO SCH ×2 (09:02→21:05)
--- NOTE | 2018-08-06 09:54 | XR ---
EXAM DATE: 08/06/2018 9:49 AM EST AGE/SEX: 62 years / Male INDICATIONS: Respiratory distress. CLINICAL DATA: This is the patient's subsequent encounter. Patient reports that signs and symptoms h ave been present for 3 days and indicates a pain score of 0/10. MEDICAL/SURGICAL HISTORY: Hypertension. Diabetes mellitus type II. Inguinal hernia. Pulmonary embolism. None. COMPARISON: C, CHEST 1V SINGLE AP, 08/03/2018. . FINDINGS: The heart is mildly prominent but stable. The pulmonary vascular pattern is normal. The lungs are ye ar. Degenerative changes are noted throughout the thoracic spine and bilateral shoulders. Marked suba cromial space narrowing is noted bilaterally suggesting rotator cuff pathology bilaterally. Clinical correlation is recommended. CONCLUSION: 1. Stable mild cardiomegaly. 2. No focal infiltrate or pulmonary vascular congestion. 3. Degenerative changes throughout the thoracic spine and the bilateral shoulders. 4. Marked subacromial space narrowing bilaterally suggesting rotator cuff pathology bilaterally. Cli nical correlation is recommended. Electronically signed by: Joe Gonzáles MD Board Certified Radiologist 08/06/2018 9:53 AM EST
--- NOTE | 2018-08-06 11:48 | P.PNIM ---
Subjective Interval history: Sleeping, wakes up for exam. Says he is doing all right. Denies any chest pain. Says he lives alone. Says he is not been walking around much. Physical Exam Vital signs: Vital Signs 08/05/18 12:00 08/05/18 13:22 08/05/18 14:00 Temperature 97.4 F L Pulse Rate 61 59 L 73 Respiratory Rate 15 18 Blood Pressure 111/63 Pulse Oximetry 100 08/05/18 16:00 08/05/18 18:00 08/05/18 18:06 Temperature 97.6 F Pulse Rate 70 76 81 Respiratory Rate 17 Blood Pressure 115/66 Pulse Oximetry 99 08/05/18 19:00 08/05/18 19:20 08/05/18 19:57 Temperature 98 F Pulse Rate 72 76 84 Respiratory Rate 18 16 Blood Pressure 125/76 Pulse Oximetry 95 08/05/18 20:00 08/05/18 21:00 08/05/18 22:00 Temperature Pulse Rate 75 78 70 Respiratory Rate Blood Pressure Pulse Oximetry 95 08/05/18 22:57 08/06/18 00:00 08/06/18 01:00 Temperature 98.1 F Pulse Rate 80 88 79 Respiratory Rate 16 Blood Pressure 121/79 Pulse Oximetry 92 L 08/06/18 02:00 08/06/18 03:00 08/06/18 04:00 Temperature 98 F Pulse Rate 74 69 72 Respiratory Rate 17 Blood Pressure 110/68 Pulse Oximetry 93 L 08/06/18 05:00 08/06/18 06:00 08/06/18 07:52 Temperature 97.8 F Pulse Rate 67 76 72 Respiratory Rate 16 Blood Pressure 118/76 Pulse Oximetry 97 08/06/18 07:53 08/06/18 08:00 08/06/18 08:07 Temperature Pulse Rate 72 65 Respiratory Rate 18 Blood Pressure Pulse Oximetry 97 92 L 08/06/18 09:00 08/06/18 09:01 08/06/18 10:00 Temperature Pulse Rate 82 78 Respiratory Rate 14 Blood Pressure Pulse Oximetry 08/06/18 11:00 Temperature Pulse Rate 84 Respiratory Rate Blood Pressure Pulse Oximetry Intake & Output 08/05/18 08/06/18 08/06/18 18:59 06:59 18:59 Intake Total 1361 / 1361 1249 / 1249 Output Total 1800 / 1800 500 / 500 Balance -439 / -439 749 / 749 Weight 82 kg Intake: IV 1241 / 1241 1009 / 1009 Heparin/D5W 25,000 U/250 mL 25, 92 / 92 158 / 158 000 unit In 250 ml @ Per Protocol IV.CONT TITRATE PRN Rx #:[id number] NS Inj 1,000 ML @ 75 mls/hr IV. 1149 / 1149 851 / 851 CONT .[id number] YARI Rx#:[id number] Oral 120 / 120 240 / 240 Output: Urine 1800 / 1800 500 / 500 Other: # Voids 2 Date of Last Bowel Movement 08/03/18 08/05/18 08/04/18 # Bowel Movements 0 Narrative: GENERAL: Patient sleeping, wakes up for exam. SKIN: Warm and dry. HEAD: Normocephalic. EYES: No scleral icterus. No injection or drainage. NECK: Supple, trachea midline. No JVD. CARDIOVASCULAR: Regular rate and rhythm without murmurs, gallops, or rubs. RESPIRATORY: Breath sounds equal bilaterally. No accessory muscle use. GASTROINTESTINAL: Abdomen soft, non-tender, nondistended. MUSCULOSKELETAL: No cyanosis, or edema. BACK: Nontender without obvious deformity. No CVA tenderness. Results - Labs CBC & Chem 7: 08/06/18 05:14 08/06/18 05:14 Laboratory Results - last 24 hr 08/05/18 08/05/18 08/05/18 11:07 11:07 17:14 WBC 3.9 L RBC 4.05 L Hgb 13.6 Hct 40.5 MCV 99.9 MCH 33.5 MCHC 33.5 RDW 14.8 Plt Count 77 L MPV 8.1 Prelim Diff (Auto) [employer] Neut % (Auto) 59.7 Lymph % (Auto) 29.8 Robertson % (Auto) 6.1 Eos % (Auto) 3.8 Baso % (Auto) 0.6 Neut # (Auto) 2.3 Lymph # (Auto) 1.2 Robertson # (Auto) 0.2 Eos # (Auto) 0.1 Baso # (Auto) 0.0 WBC Differential . Differential Comment Auto diff final APTT 62.2 H Fibrinogen 206 L Sodium Potassium Chloride Carbon Dioxide Anion Gap BUN Creatinine Estimated GFR POC Glucose 99 Random Glucose Calcium Total Bilirubin AST ALT Alkaline Phosphatase Total Protein Albumin 12/18/18 12/18/18 12/19/18 19:30 23:13 05:13 WBC RBC Hgb Hct MCV MCH MCHC RDW Plt Count MPV Prelim Diff (Auto) Neut % (Auto) Lymph % (Auto) Robertson % (Auto) Eos % (Auto) Baso % (Auto) Neut # (Auto) Lymph # (Auto) Robertson # (Auto) Eos # (Auto) Baso # (Auto) WBC Differential Differential Comment APTT 56.2 H Fibrinogen Sodium Potassium Chloride Carbon Dioxide Anion Gap BUN Creatinine Estimated GFR POC Glucose 105 88 Random Glucose Calcium Total Bilirubin AST ALT Alkaline Phosphatase Total Protein Albumin 08/06/18 08/06/18 08/06/18 05:14 05:14 05:14 WBC 4.0 RBC 3.96 L Hgb 13.2 Hct 39.8 MCV 100.4 H MCH 33.4 MCHC 33.3 RDW 14.9 Plt Count 83 L MPV 8.1 Prelim Diff (Auto) Neut % (Auto) Lymph % (Auto) Robertson % (Auto) Eos % (Auto) Baso % (Auto) Neut # (Auto) Lymph # (Auto) Robertson # (Auto) Eos # (Auto) Baso # (Auto) WBC Differential Differential Comment APTT 48.0 H Fibrinogen Sodium 142 Potassium 3.8 Chloride 111 H Carbon Dioxide 23.7 Anion Gap 7 BUN 11 Creatinine 1.15 Estimated GFR 79 L POC Glucose Random Glucose 82 Calcium 8.4 L Total Bilirubin 0.9 AST 31 ALT 32 Alkaline Phosphatase 53 Total Protein 6.2 L D Albumin 3.2 L - Imaging Impressions Chest X-Ray 08/06/18 06:00 CONCLUSION: 1. Stable mild cardiomegaly. 2. No focal infiltrate or pulmonary vascular congestion. 3. Degenerative changes throughout the thoracic spine and the bilateral shoulders. 4. Marked subacromial space narrowing bilaterally suggesting rotator cuff pathology bilaterally. Clinical correlation is recommended. Assessment and Plan - Plan //Acute unprovoked extensive bilateral pulmonary embolism //Hypotension-resolved //Elevated troponin secondary to RV strain //Acute kidney injury-resolved //Lower extremity DVT //Hypertension //Diabetes //History of DVT and PE in 2012 PLAN: NEURO: -Patient denies any pain -No long-acting sedation -Hold tramadol, use Tylenol if needed RESP/CV: -CTA reviewed personally and discussed with hematology Dr. Roberts -Patient meets criteria for TPA administration. (Extensive bilateral PE with severe clot burden, hypotension, elevated troponin and Echo indicating RV strain ) -s/p alteplase 9 mg IV bolus, followed by 41 mg infusion over 1 hour (total 50 mg) -Continue IV heparin per protocol -Elevated troponin secondary to RV strain and massive pulmonary embolism -2D Echo right ventricle is moderately dilated. The right ventricular systolic function is mildly decreased. TAPSE not calculated -Cardiology Dr. Kelly is following -Hold amlodipine -Pulmonary consulted for long-term follow-up, has seen Dr. Barrera before -Need lifelong anticoagulation = 08/06. Patient will need PT and OT evaluation. May need rehab. Continue on heparin drip as per hematology. Cardiology following. Patient will need repeat echo prior to discharge as per cardiology. Plan transition to by mouth anticoagulation. GI: -Cardiac diet, IV Protonix 40 mg every 12 : -Monitor renal function closely. Creatinine improving -NS 75 ml per hour -Creatinine on admission was 1.86 improved to 1.4 -Continue to trend, ORAL most likely secondary to dehydration and hypoperfusion = AK I resolved. ID: -No antibiotics. Monitor for infection HEME: -Monitor CBC, coags -Status post IV TPA and continue IV heparin infusion as above //Thrombocytopenia. Platelets 8514 on admission. We will continue to monitor. ENDO: -Electrolyte replacement per protocol -Sliding scale insulin PROPH: -Bilateral lower extremity SCDs. IV Protonix -IV Heparin LINES: -Utilize peripheral IVs, central line if needed Discussed Condition With: Patient, nurse Discharge Planning: Pending PT and OT evaluation Patient may need rehab. Pending transition to by mouth of the coagulation as per hematology Cardiology would like to repeat echocardiogram prior to discharge.
[2018-08-06] MEDS ORDERED: Heparin Drip 25,000 UNIT/250 ML BAG IV.CONT PRN (14:04)
--- NOTE | 2018-08-06 14:19 | P.PNONC ---
Subjective Interval history: Patient lying in bed, no acute distress. He denies any bleeding. He continues on heparin drip. He states his headache is gone. He had one episode of dizziness when he got up to go to the bathroom. He states that was his first time out of bed in a few days. He successfully worked with physical therapy today. Objective Vital Signs/Intake & Output: Vital Signs 08/05/18 16:00 08/05/18 18:00 08/05/18 18:06 Temperature 97.6 F Pulse Rate 70 76 81 Respiratory Rate 17 Blood Pressure 115/66 Pulse Oximetry 99 08/05/18 19:00 08/05/18 19:20 08/05/18 19:57 Temperature 98 F Pulse Rate 72 76 84 Respiratory Rate 18 16 Blood Pressure 125/76 Pulse Oximetry 95 08/05/18 20:00 08/05/18 21:00 08/05/18 22:00 Temperature Pulse Rate 75 78 70 Respiratory Rate Blood Pressure Pulse Oximetry 95 08/05/18 22:57 08/06/18 00:00 08/06/18 01:00 Temperature 98.1 F Pulse Rate 80 88 79 Respiratory Rate 16 Blood Pressure 121/79 Pulse Oximetry 92 L 08/06/18 02:00 08/06/18 03:00 08/06/18 04:00 Temperature 98 F Pulse Rate 74 69 72 Respiratory Rate 17 Blood Pressure 110/68 Pulse Oximetry 93 L 08/06/18 05:00 08/06/18 06:00 08/06/18 07:52 Temperature 97.8 F Pulse Rate 67 76 72 Respiratory Rate 16 Blood Pressure 118/76 Pulse Oximetry 97 08/06/18 07:53 08/06/18 08:00 08/06/18 08:07 Temperature Pulse Rate 72 65 Respiratory Rate 18 Blood Pressure Pulse Oximetry 97 92 L 08/06/18 09:00 08/06/18 09:01 08/06/18 10:00 Temperature Pulse Rate 82 78 Respiratory Rate 14 Blood Pressure Pulse Oximetry 08/06/18 11:00 08/06/18 12:00 08/06/18 13:00 Temperature 98.0 F Pulse Rate 84 91 H 91 H Respiratory Rate 18 Blood Pressure 141/94 H Pulse Oximetry 95 Intake & Output 08/05/18 08/06/18 08/06/18 18:59 06:59 18:59 Intake Total 1361 / 1361 1249 / 1249 Output Total 1800 / 1800 500 / 500 Balance -439 / -439 749 / 749 Weight 82 kg Intake: IV 1241 / 1241 1009 / 1009 Heparin/D5W 25,000 U/250 mL 25, 92 / 92 158 / 158 000 unit In 250 ml @ Per Protocol IV.CONT TITRATE PRN Rx #:[id number] NS Inj 1,000 ML @ 75 mls/hr IV. 1149 / 1149 851 / 851 CONT .[id number] YARI Rx#:[id number] Oral 120 / 120 240 / 240 Output: Urine 1800 / 1800 500 / 500 Other: # Voids 2 Date of Last Bowel Movement 08/03/18 08/05/18 08/04/18 # Bowel Movements 0 Result Diagrams: 08/06/18 05:14 08/06/18 05:14 Laboratory Results: Laboratory Results - last 24 hr 08/05/18 08/05/18 08/05/18 17:14 19:30 23:13 WBC RBC Hgb Hct MCV MCH MCHC RDW Plt Count MPV APTT 56.2 H Sodium Potassium Chloride Carbon Dioxide Anion Gap BUN Creatinine Estimated GFR POC Glucose 99 105 Random Glucose Calcium Total Bilirubin AST ALT Alkaline Phosphatase Total Protein Albumin 08/06/18 08/06/18 08/06/18 05:13 05:14 05:14 WBC 4.0 RBC 3.96 L Hgb 13.2 Hct 39.8 MCV 100.4 H MCH 33.4 MCHC 33.3 RDW 14.9 Plt Count 83 L MPV 8.1 APTT 48.0 H Sodium Potassium Chloride Carbon Dioxide Anion Gap BUN Creatinine Estimated GFR POC Glucose 88 Random Glucose Calcium Total Bilirubin AST ALT Alkaline Phosphatase Total Protein Albumin 08/06/18 08/06/18 05:14 13:16 WBC RBC Hgb Hct MCV MCH MCHC RDW Plt Count MPV APTT Sodium 142 Potassium 3.8 Chloride 111 H Carbon Dioxide 23.7 Anion Gap 7 BUN 11 Creatinine 1.15 Estimated GFR 79 L POC Glucose 147 H Random Glucose 82 Calcium 8.4 L Total Bilirubin 0.9 AST 31 ALT 32 Alkaline Phosphatase 53 Total Protein 6.2 L D Albumin 3.2 L Imaging Studies: Impressions Chest X-Ray 08/06/18 06:00 CONCLUSION: 1. Stable mild cardiomegaly. 2. No focal infiltrate or pulmonary vascular congestion. 3. Degenerative changes throughout the thoracic spine and the bilateral shoulders. 4. Marked subacromial space narrowing bilaterally suggesting rotator cuff pathology bilaterally. Clinical correlation is recommended. Medications: Active Medications Generic Name Dose Route Start Last Admin Trade Name Freq PRN Reason Stop Dose Admin Acetaminophen 650 mg 08/03/18 18:28 08/06/18 07:46 Tylenol PO 650 mg Q4H PRN Administration Temp > 100.4 Albuterol 1 ampul 08/05/18 14:00 08/06/18 08:05 Duoneb Neb ([facility]) NEB 1 ampul Q6HR WHILE AWAKE NEB [facility] Administration Chlorhexidine Gluconate 3 pack 08/05/18 04:00 08/06/18 03:02 Chlorhexidine 2% Cloth TOPICAL 08/10/18 03:59 Not Given DAILY@0400 [facility] Sodium Chloride 1,000 mls @ 75 mls/hr 08/04/18 13:30 08/06/18 05:04 Ns Inj IV.CONT Not Given .[id number] [facility] Insulin Aspart 0 unit 08/05/18 18:00 08/06/18 13:22 Novolog Insulin Correctional Sugar Inj SQ Not Given Q6HR [facility] Protocol Pantoprazole Sodium 40 mg 08/04/18 14:00 08/06/18 13:38 Protonix Inj IV.PUSH 40 mg Q12H [facility] Administration Senna/Docusate Sodium 1 tab 08/03/18 21:00 08/06/18 09:02 Margoth-Colace PO Not Given BID [facility] Sodium Chloride 2 ml 08/03/18 21:00 08/06/18 09:02 Ns Flush IV.FLUSH Not Given BID [facility] Objective Remarks: GENERAL: Well-nourished, well-developed male patient, in no acute distress. SKIN: Warm and dry. HEAD: Normocephalic. Scar to right cheek, anterior to ear. Droop to right upper lip, chronic per pt. EYES: No scleral icterus. No injection or drainage. PEARLA MOUTH: [place], moist mucous membranes. No petechiae, ulcers or lesions noted. NECK: Supple, trachea midline. CARDIOVASCULAR: Regular rate and rhythm without murmurs. RESPIRATORY: Anterior breath sounds clear, equal bilaterally. No accessory muscle use. GASTROINTESTINAL: Abdomen soft, non-tender, nondistended. EXTREMITIES: No cyanosis, or edema. MUSCULOSKELETAL: Adequate muscle tone. NEUROLOGICAL: No obvious focal deficit. Awake, alert, and oriented x3. Equal strength bilaterally. PSYCHIATRIC: Appropriate mood and affect; insight and judgment normal. Assessment/Plan - Plan Plan: 1. Pulmonary embolism, with right heart strain, s/p activase infusion on . Continues on heparin drip, APTT 48 today. We will transition him to coumadin, as he is unable to afford NOAC. Continue heparin gtt per protocol until INR therapeutic between 2-3. 2. Pt with past history of unprovoked DVTs, now with P.E. requiring activase. Pt will need lifelong anticoagulation. 3. Thrombocytopenia, improving, possibly consumptive. We will continue to monitor. 4. Continue to monitor closely for bleeding and neuro checks per policy. - Attending Statement The exam, history, and the medical decision-making described in the above note were completed with the assistance of the mid-level provider. I reviewed and agree with the findings presented. I attest that I had a [id number] encounter with the patient on the same day, and personally performed and documented my assessment and findings in the medical record. Patient feels better. He does not have any more headache, dizziness or shortness of breath Patient is still on heparin, transition to either Coumadin or NOAC Consumptive thrombocytopenia, expect to improve in the next several days I have recommended lifelong anticoagulation.
--- NOTE | 2018-08-06 14:29 | P.PNCA ---
Subjective Interval history: No events over night No chest pain/SOB Medications and Allergies Active Medications: Active Medications Acetaminophen (Tylenol) 650 mg PO Q4H PRN PRN Reason: Temp > 100.4 Last Admin: 08/06/18 07:46 Dose: 650 mg Al Hydroxide/Mg Hydroxide (Milk Of Magnesia Liq) 30 ml PO Q12H PRN PRN Reason: Mild Constipation Albuterol (Duoneb Neb ([facility])) 1 ampul NEB Q6HR WHILE AWAKE NEB [facility] Last Admin: 08/06/18 08:05 Dose: 1 ampul Apixaban (Eliquis) 5 mg PO BID [facility] Bisacodyl (Dulcolax Supp) 10 mg RECTAL DAILY PRN PRN Reason: SEVERE CONSITIPATION Chlorhexidine Gluconate (Chlorhexidine 2% Cloth) 3 pack TOPICAL DAILY@0400 [facility] Stop: 08/10/18 03:59 Last Admin: 08/06/18 03:02 Dose: Not Given Chlorhexidine Gluconate (Chlorhexidine 2% Cloth) 3 pack TOPICAL DAILY@0400 PRN PRN Reason: Extra cloth needed Stop: 08/10/18 03:59 Dextrose (D50w Vial) 50 ml IV.PUSH UNSCH PRN PRN Reason: PER HYPOGLYCEMIA PROTOCOL Glucagon (Glucagon Inj) 1 mg OTHER PRN PRN PRN Reason: for Hypoglycemia Protocol Sodium Chloride (Ns Inj) 1,000 mls @ 75 mls/hr IV.CONT .[id number] [facility] Last Admin: 08/06/18 05:04 Dose: Not Given Heparin Sodium/Dextrose (Heparin/D5w 25,000 U/250 Ml) 25,000 unit in 250 mls @ 0 mls/hr IV.CONT TITRATE PRN; Protocol PRN Reason: Per Protocol Stop: 08/06/18 20:00 Insulin Aspart (Novolog Insulin Correctional Sugar Inj) 0 unit SQ Q6HR [facility]; Protocol Last Admin: 08/06/18 13:22 Dose: Not Given Lactulose (Lactulose Liq) 30 ml PO DAILY PRN PRN Reason: SEVERE CONSITIPATION Ondansetron HCl (Zofran Inj) 4 mg IV.PUSH Q6H PRN PRN Reason: NAUSEA OR VOMITING Pantoprazole Sodium (Protonix Inj) 40 mg IV.PUSH Q12H [facility] Last Admin: 12/19/18 13:38 Dose: 40 mg Senna/Docusate Sodium (Margoth-Colace) 1 tab PO BID [facility] Last Admin: 08/06/18 09:02 Dose: Not Given Sennosides (Senokot) 17.2 mg PO Q12H PRN PRN Reason: Moderate Constipation Sodium Chloride (Ns Flush) 2 ml IV.FLUSH PRN PRN PRN Reason: FLUSH AFTER USING IV ACCESS Sodium Chloride (Ns Flush) 2 ml IV.FLUSH BID [facility] Last Admin: 08/06/18 09:02 Dose: Not Given Allergies Allergy/AdvReac Type Severity Reaction Status Date / Time No Known Allergies Allergy Unverified 05/16/18 16:37 Home Medications Medication Instructions Recorded Confirmed Type amlodipine mg PO DAILY 08/03/18 History tramadol mg PO PRN 08/03/18 History Physical Exam Vital signs: Vital Signs 08/05/18 16:00 08/05/18 18:00 08/05/18 18:06 Temperature 97.6 F Pulse Rate 70 76 81 Respiratory Rate 17 Blood Pressure 115/66 Pulse Oximetry 99 08/05/18 19:00 08/05/18 19:20 08/05/18 19:57 Temperature 98 F Pulse Rate 72 76 84 Respiratory Rate 18 16 Blood Pressure 125/76 Pulse Oximetry 95 08/05/18 20:00 08/05/18 21:00 08/05/18 22:00 Temperature Pulse Rate 75 78 70 Respiratory Rate Blood Pressure Pulse Oximetry 95 08/05/18 22:57 08/06/18 00:00 08/06/18 01:00 Temperature 98.1 F Pulse Rate 80 88 79 Respiratory Rate 16 Blood Pressure 121/79 Pulse Oximetry 92 L 08/06/18 02:00 08/06/18 03:00 08/06/18 04:00 Temperature 98 F Pulse Rate 74 69 72 Respiratory Rate 17 Blood Pressure 110/68 Pulse Oximetry 93 L 08/06/18 05:00 08/06/18 06:00 08/06/18 07:52 Temperature 97.8 F Pulse Rate 67 76 72 Respiratory Rate 16 Blood Pressure 118/76 Pulse Oximetry 97 08/06/18 07:53 08/06/18 08:00 08/06/18 08:07 Temperature Pulse Rate 72 65 Respiratory Rate 18 Blood Pressure Pulse Oximetry 97 92 L 08/06/18 09:00 08/06/18 09:01 08/06/18 10:00 Temperature Pulse Rate 82 78 Respiratory Rate 14 Blood Pressure Pulse Oximetry 08/06/18 11:00 08/06/18 12:00 08/06/18 13:00 Temperature 98.0 F Pulse Rate 84 91 H 91 H Respiratory Rate 18 Blood Pressure 141/94 H Pulse Oximetry 95 Intake & Output 08/05/18 08/06/18 08/06/18 18:59 06:59 18:59 Intake Total 1361 / 1361 1249 / 1249 Output Total 1800 / 1800 500 / 500 Balance -439 / -439 749 / 749 Weight 82 kg Intake: IV 1241 / 1241 1009 / 1009 Heparin/D5W 25,000 U/250 mL 25, 92 / 92 158 / 158 000 unit In 250 ml @ Per Protocol IV.CONT TITRATE PRN Rx #:[id number] NS Inj 1,000 ML @ 75 mls/hr IV. 1149 / 1149 851 / 851 CONT .[id number] YARI Rx#:[id number] Oral 120 / 120 240 / 240 Output: Urine 1800 / 1800 500 / 500 Other: # Voids 2 Date of Last Bowel Movement 08/03/18 08/05/18 08/04/18 # Bowel Movements 0 Narrative: GENERAL: Patient sleeping, wakes up for exam. SKIN: Warm and dry. HEAD: Normocephalic. EYES: No scleral icterus. No injection or drainage. NECK: Supple, trachea midline. No JVD. CARDIOVASCULAR: Regular rate and rhythm without murmurs, gallops, or rubs. RESPIRATORY: Breath sounds equal bilaterally. No accessory muscle use. GASTROINTESTINAL: Abdomen soft, non-tender, nondistended. MUSCULOSKELETAL: No cyanosis, or edema. BACK: Nontender without obvious deformity. No CVA tenderness. Results 08/06/18 05:14 08/06/18 05:14 Cardiac Enzymes 08/06/18 Range/Units 05:14 AST 31 (15-37) U/L Coagulation 08/04/18 08/05/18 08/05/18 Range/Units 18:32 01:10 05:30 APTT 68.5 H D 88.8 H D 74.4 H (23.4-31.7) sec 08/05/18 08/05/18 08/06/18 Range/Units 11:07 19:30 05:14 APTT 62.2 H 56.2 H 48.0 H (23.4-31.7) sec CBC 08/05/18 08/05/18 08/06/18 Range/Units 05:30 11:07 05:14 WBC 4.7 3.9 L 4.0 (4.0-11.0) th/mm3 RBC 4.07 L 4.05 L 3.96 L (4.50-5.90) mil/mm3 Hgb 13.6 D 13.6 13.2 (13.0-17.0) gm/dL Hct 40.3 40.5 39.8 (39.0-51.0) % Plt Count 78 L 77 L 83 L (150-450) th/mm3 Neut # (Auto) 2.3 (1.8-7.7) th/mm3 Lymph # (Auto) 1.2 (1.0-4.8) th/mm3 [place] # (Auto) 0.2 (0.0-0.9) th/mm3 Eos # (Auto) 0.1 (0.0-0.4) th/mm3 Baso # (Auto) 0.0 (0.0-0.2) th/mm3 Comprehensive Metabolic Panel 08/05/18 08/06/18 Range/Units 05:30 05:14 Sodium 142 142 (136-145) meq/L Potassium 4.2 3.8 (3.5-5.1) meq/L Chloride 112 H 111 H (98-107) meq/L Carbon Dioxide 24.1 23.7 (21.0-32.0) meq/L BUN 15 11 (7-18) mg/dL Creatinine 1.22 1.15 (0.60-1.30) mg/dL Calcium 8.0 L 8.4 L (8.5-10.1) mg/dL AST 31 (15-37) U/L ALT 32 (12-78) U/L Alkaline Phosphatase 53 (45-117) U/L Total Protein 6.2 L D (6.4-8.2) g/dL Albumin 3.2 L (3.4-5.0) g/dL Intake and Output 12/18/18 12/19/18 12/19/18 22:59 06:59 14:59 Intake Total 1361 / 1361 1249 / 1249 Output Total 1800 / 1800 500 / 500 Balance -439 / -439 749 / 749 Intake: IV 1241 / 1241 1009 / 1009 Heparin/D5W 25,000 U/250 mL 25, 92 / 92 158 / 158 000 unit In 250 ml @ Per Protocol IV.CONT TITRATE PRN Rx #:[id number] NS Inj 1,000 ML @ 75 mls/hr IV. 1149 / 1149 851 / 851 CONT .[id number] YARI Rx#:[id number] Oral 120 / 120 240 / 240 Output: Urine 1800 / 1800 500 / 500 Other: # Voids 2 Date of Last Bowel Movement 08/05/18 08/04/18 # Bowel Movements 0 Weight 82 kg - Imaging and Cardiology Imaging: Impressions Chest X-Ray 08/06/18 06:00 CONCLUSION: 1. Stable mild cardiomegaly. 2. No focal infiltrate or pulmonary vascular congestion. 3. Degenerative changes throughout the thoracic spine and the bilateral shoulders. 4. Marked subacromial space narrowing bilaterally suggesting rotator cuff pathology bilaterally. Clinical correlation is recommended. Assessment and Plan - Assessment (1) DVT (deep venous thrombosis) Code(s): I82.409 - Acute embolism and thrombosis of unspecified deep veins of unspecified lower extremity Status: Acute (2) NSTEMI (non-ST elevated myocardial infarction) Code(s): I21.4 - Non-ST elevation (NSTEMI) myocardial infarction Status: Acute - Plan 1) DVT/PE with right heart strain s/p TPA, now on heparin drip Plan to transition to oral anticoagulation Unprovoked with previous history of DVT/PE Most likely life-long anticoagulation per Heme/Onc 2) Elevated troponin Type 2 due to right heart strain No further work up necessary 3) Plan to repeat echo tomorrow
--- NOTE | 2018-08-06 18:47 | P.PN ---
Subjective Interval history: C/O pain in back and shoulders. No SOB and is not wheezing. Physical Exam Vital signs: Vital Signs 08/05/18 19:00 08/05/18 19:20 08/05/18 19:57 Temperature 98 F Pulse Rate 72 76 84 Respiratory Rate 18 16 Blood Pressure 125/76 Pulse Oximetry 95 08/05/18 20:00 08/05/18 21:00 08/05/18 22:00 Temperature Pulse Rate 75 78 70 Respiratory Rate Blood Pressure Pulse Oximetry 95 08/05/18 22:57 08/06/18 00:00 08/06/18 01:00 Temperature 98.1 F Pulse Rate 80 88 79 Respiratory Rate 16 Blood Pressure 121/79 Pulse Oximetry 92 L 08/06/18 02:00 08/06/18 03:00 08/06/18 04:00 Temperature 98 F Pulse Rate 74 69 72 Respiratory Rate 17 Blood Pressure 110/68 Pulse Oximetry 93 L 08/06/18 05:00 08/06/18 06:00 08/06/18 07:52 Temperature 97.8 F Pulse Rate 67 76 72 Respiratory Rate 16 Blood Pressure 118/76 Pulse Oximetry 97 08/06/18 07:53 08/06/18 08:00 08/06/18 08:07 Temperature Pulse Rate 72 65 Respiratory Rate 18 Blood Pressure Pulse Oximetry 97 92 L 08/06/18 09:00 08/06/18 09:01 08/06/18 10:00 Temperature Pulse Rate 82 78 Respiratory Rate 14 Blood Pressure Pulse Oximetry 08/06/18 11:00 08/06/18 12:00 08/06/18 13:00 Temperature 98.0 F Pulse Rate 84 91 H 91 H Respiratory Rate 18 Blood Pressure 141/94 H Pulse Oximetry 95 08/06/18 14:00 08/06/18 15:00 08/06/18 16:00 Temperature 97.6 F Pulse Rate 89 79 80 Respiratory Rate 14 Blood Pressure 125/83 Pulse Oximetry 96 08/06/18 17:00 08/06/18 17:51 Temperature Pulse Rate 82 83 Respiratory Rate Blood Pressure Pulse Oximetry Intake & Output 08/05/18 08/06/18 08/06/18 18:59 06:59 18:59 Intake Total 1361 / 1361 1249 / 1249 1580 / 1580 Output Total 1800 / 1800 500 / 500 950 / 950 Balance -439 / -439 749 / 749 630 / 630 Weight 82 kg Intake: IV 1241 / 1241 1009 / 1009 1000 / 1000 Heparin/D5W 25,000 U/250 mL 25, 92 / 92 158 / 158 000 unit In 250 ml @ Per Protocol IV.CONT TITRATE PRN Rx #:[id number] NS Inj 1,000 ML @ 75 mls/hr IV. 1149 / 1149 851 / 851 1000 / 1000 CONT .[id number] [facility] Rx#:[id number] Oral 120 / 120 240 / 240 580 / 580 Output: Urine 1800 / 1800 500 / 500 950 / 950 Other: # Voids 2 Date of Last Bowel Movement 08/03/18 08/05/18 08/04/18 # Bowel Movements 0 Narrative: GENERAL: Mid aged A/A male alert talking. SKIN: Warm and dry. HEAD: Normocephalic. EYES: No scleral icterus. No injection or drainage. NECK: Supple, trachea midline. No JVD. CARDIOVASCULAR: Regular rate and rhythm without murmurs, gallops, or rubs. RESPIRATORY: Breath sounds equal bilaterally. Occ wheeze Right chest.No accessory muscle use. GASTROINTESTINAL: Abdomen soft, non-tender, nondistended. MUSCULOSKELETAL: No cyanosis, or edema. Has varicose veins. BACK: Nontender without obvious deformity. No CVA tenderness. Results - Labs CBC & Chem 7: 08/06/18 05:14 08/06/18 05:14 Laboratory Results - last 24 hr 08/05/18 08/05/18 08/06/18 19:30 23:13 05:13 WBC RBC Hgb Hct MCV MCH MCHC RDW Plt Count MPV APTT 56.2 H Sodium Potassium Chloride Carbon Dioxide Anion Gap BUN Creatinine Estimated GFR POC Glucose 105 88 Random Glucose Calcium Total Bilirubin AST ALT Alkaline Phosphatase Total Protein Albumin 08/06/18 08/06/18 08/06/18 05:14 05:14 05:14 WBC 4.0 RBC 3.96 L Hgb 13.2 Hct 39.8 MCV 100.4 H MCH 33.4 MCHC 33.3 RDW 14.9 Plt Count 83 L MPV 8.1 APTT 48.0 H Sodium 142 Potassium 3.8 Chloride 111 H Carbon Dioxide 23.7 Anion Gap 7 BUN 11 Creatinine 1.15 Estimated GFR 79 L POC Glucose Random Glucose 82 Calcium 8.4 L Total Bilirubin 0.9 AST 31 ALT 32 Alkaline Phosphatase 53 Total Protein 6.2 L D Albumin 3.2 L 08/06/18 08/06/18 13:16 17:48 WBC RBC Hgb Hct MCV MCH MCHC RDW Plt Count MPV APTT Sodium Potassium Chloride Carbon Dioxide Anion Gap BUN Creatinine Estimated GFR POC Glucose 147 H 84 Random Glucose Calcium Total Bilirubin AST ALT Alkaline Phosphatase Total Protein Albumin - Imaging Impressions Chest X-Ray 08/06/18 06:00 CONCLUSION: 1. Stable mild cardiomegaly. 2. No focal infiltrate or pulmonary vascular congestion. 3. Degenerative changes throughout the thoracic spine and the bilateral shoulders. 4. Marked subacromial space narrowing bilaterally suggesting rotator cuff pathology bilaterally. Clinical correlation is recommended. Assessment and Plan - Assessment (1) DVT (deep venous thrombosis) Code(s): I82.409 - Acute embolism and thrombosis of unspecified deep veins of unspecified lower extremity Status: Acute (2) NSTEMI (non-ST elevated myocardial infarction) Code(s): I21.4 - Non-ST elevation (NSTEMI) myocardial infarction Status: Acute (3) Pulmonary embolism Code(s): I26.99 - Other pulmonary embolism without acute cor pulmonale Status : Acute (4) Hypertension Code(s): I10 - Essential (primary) hypertension Status: Acute - Plan 1. O2 2 L N/C. 2. Cont heparin drip. 3. Coumadin 5 mg daily. 4. Albuterol Nebs qid prn 5. CBC,PT INR , BMP in am
[2018-08-07] MEDS: Pantoprazole Inj 40 MG Vial IV.PUSH SCH ×2 (01:00→14:27)
[2018-08-07] MEDS: Chlorhexidine Gluconate 2% 1 Pack (2 Cloths) TOPICAL SCH (03:00)
[2018-08-07] MEDS: Acetaminophen 325 MG Tablet PO PRN ×2 (04:29→20:49)
[2018-08-07] MEDS: Insulin NovoLOG Aspart Correctional Sugar Inj SQ SCH ×4 (05:26→23:53)
[2018-08-07] MEDS: Sod Chloride 0.9% Inj 1,000 ML IV.CONT SCH ×2 (05:38→17:10)
[2018-08-07] MEDS: Senna/Docusate Sodium 8.6/50 MG Tablet PO SCH ×2 (08:52→20:49)
[2018-08-07 11:25] LABS: INR 1.1 Ratio
[2018-08-07] MEDS: Heparin Drip 25,000 UNIT/250 ML BAG IV.CONT PRN (12:06)
--- NOTE | 2018-08-07 12:31 | ECHRPT ---
Indication: Shortness of breath CONCLUSIONS The left ventricular systolic function is normal with an estimated ejection fraction in the range of 55-60%. Wall thickness is normal. Normal left ventricular size. The right ventricle is moderately dilated. The right ventricular systoilc function is mildly decreased. The right atrial size is mildly dilated. There is moderate to severe tricuspid valve regurgitation. The estimated pulmonary arterial pressure is 70.5 mmHg. Mild to moderate pulmonary valve regurgitation. A left sided pleural effusion may be present. BP: / HR: Rhythm: Sinus MEASUREMENTS (Male / Female) Normal Values Technical Quality:Good 2D ECHO LV Diastolic Diameter PLAX 3.8 cm 4.2 - 5.9 / 3.9 - 5.3 cm LV Systolic Diameter PLAX 2.8 cm IVS Diastolic Thickness 1.0 cm 0.6 - 1.0 / 0.6 - 0.9 cm LVPW Diastolic Thickness 1.0 cm 0.6 - 1.0 / 0.6 - 0.9 cm LV Relative Wall Thickness 0.5 LVOT Diameter 2.0 cm M-MODE Aortic Root Diameter MM 3.1 cm LA Systolic Diameter MM 3.2 cm LA Ao Ratio MM 1.0 AV Cusp Separation MM 2.0 cm DOPPLER AV Peak Velocity 115.0 cm/s AV Peak Gradient 5.3 mmHg LVOT Peak Velocity 89.3 cm/s LVOT Peak Gradient 3.2 mmHg AV Area Cont Eq pk 2.4 cm Mitral E Point Velocity 54.8 cm/s Mitral A Point Velocity 77.5 cm/s Mitral E to A Ratio 0.7 LV E' Lateral Velocity 10.0 cm/s Mitral E to LV E' Lateral Ratio 5.5 LV E' Septal Velocity 8.0 cm/s Mitral E to LV E' Septal Ratio 6.9 TR Peak Velocity 389.0 cm/s TR Peak Gradient 60.5 mmHg Right Atrial Pressure 10.0 mmHg Pulmonary Artery Systolic Pressu 70.5 mmHg Right Ventricular Systolic Press 70.5 mmHg PV Peak Velocity 105.0 cm/s PV Peak Gradient 4.4 mmHg FINDINGS LEFT VENTRICLE The left ventricular systolic function is normal with an estimated ejection fraction in the range of 55-60%. Wall thickness is normal. Normal left ventricular size. RIGHT VENTRICLE The right ventricle is moderately dilated. The right ventricular systoilc function is mildly decreased. LEFT ATRIUM The left atrial size is normal. RIGHT ATRIUM The right atrial size is mildly dilated. ATRIAL SEPTUM Normal atrial septal thickness without atrial level shunting by limited color doppler interrogation. AORTA The aortic root and proximal ascending aorta are normal in size on limited imaging. MITRAL VALVE Structurally normal mitral valve. No mitral valve stenosis or regurgitation. AORTIC VALVE Trileaflet aortic valve. No aortic valve stenosis or regurgitation. TRICUSPID VALVE There is moderate to severe tricuspid valve regurgitation. The estimated pulmonary arterial pressure is 70.5 mmHg. PULMONARY VALVE Mild to moderate pulmonary valve regurgitation. VESSELS The inferior vena cava is normal in size. PERICARDIUM No pericardial effusion. OTHER FINDINGS A left sided pleural effusion may be present. [place] Vizcarra (Electronically Signed) Final Date:07 August 2018 12:30
--- NOTE | 2018-08-07 14:15 | P.PNONC ---
Subjective Interval history: Patient standing at sink, shaving. He denies any bleeding. He was still reports dizziness when he first stands and a headache this morning. The headache was relieved by Tylenol. Objective Vital Signs/Intake & Output: Vital Signs 08/06/18 15:00 08/06/18 16:00 08/06/18 17:00 Temperature 97.6 F Pulse Rate 79 80 82 Respiratory Rate 14 Blood Pressure 125/83 Pulse Oximetry 96 08/06/18 17:51 08/06/18 19:00 08/06/18 20:00 Temperature 98.9 F Pulse Rate 83 80 87 Respiratory Rate 16 Blood Pressure 130/81 Pulse Oximetry 96 08/06/18 21:00 08/06/18 21:15 08/06/18 22:00 Temperature Pulse Rate 73 87 88 Respiratory Rate 16 Blood Pressure Pulse Oximetry 08/06/18 23:00 08/07/18 00:00 08/07/18 01:00 Temperature 98.6 F Pulse Rate 82 88 69 Respiratory Rate 17 Blood Pressure 141/89 H Pulse Oximetry 94 L 08/07/18 02:00 08/07/18 03:00 08/07/18 04:00 Temperature 98 F Pulse Rate 82 76 79 Respiratory Rate 17 Blood Pressure 101/69 Pulse Oximetry 94 L 08/07/18 05:00 08/07/18 06:00 08/07/18 07:00 Temperature Pulse Rate 77 78 70 Respiratory Rate Blood Pressure Pulse Oximetry 08/07/18 08:00 08/07/18 08:36 08/07/18 09:00 Temperature 98.4 F Pulse Rate 86 71 70 Respiratory Rate 20 16 Blood Pressure 118/78 Pulse Oximetry 97 93 L 08/07/18 10:00 08/07/18 11:00 08/07/18 12:00 Temperature 98.0 F Pulse Rate 72 72 80 Respiratory Rate 18 Blood Pressure 159/79 H Pulse Oximetry 94 L 08/07/18 12:56 Temperature Pulse Rate 82 Respiratory Rate 16 Blood Pressure Pulse Oximetry Intake & Output 08/06/18 08/07/18 08/07/18 18:59 06:59 18:59 Intake Total 1580 / 1580 1240 / 1240 250 / 250 Output Total 950 / 950 900 / 900 Balance 630 / 630 340 / 340 250 / 250 Weight 82.1 kg Intake: IV 1000 / 1000 1000 / 1000 250 / 250 NS Inj 1,000 ML @ 75 mls/hr IV. 1000 / 1000 1000 / 1000 CONT .[id number] [facility] Rx#:[id number] Oral 580 / 580 240 / 240 Output: Urine 950 / 950 900 / 900 Other: Date of Last Bowel Movement 08/04/18 08/06/18 08/06/18 Result Diagrams: 08/06/18 05:14 08/06/18 05:14 Laboratory Results: Laboratory Results - last 24 hr 08/06/18 08/06/18 08/07/18 17:48 23:31 05:23 PT INR APTT POC Glucose 84 105 98 08/07/18 08/07/18 08/07/18 05:26 11:03 11:58 PT 11.0 INR 1.1 APTT 45.1 H POC Glucose 91 Medications: Active Medications Generic Name Dose Route Start Last Admin Trade Name Freq PRN Reason Stop Dose Admin Acetaminophen 650 mg 08/03/18 18:28 08/07/18 04:29 Tylenol PO 650 mg Q4H PRN Administration Temp > 100.4 Albuterol 1 ampul 08/05/18 14:00 08/07/18 12:55 Duoneb Neb (Amy) NEB 1 ampul Q6HR WHILE AWAKE NEB AMY Administration Chlorhexidine Gluconate 3 pack 08/05/18 04:00 08/07/18 03:00 Chlorhexidine 2% Cloth TOPICAL 08/10/18 03:59 Not Given DAILY@0400 [facility] Sodium Chloride 1,000 mls @ 75 mls/hr 08/04/18 13:30 08/07/18 05:38 Ns Inj IV.CONT 75 mls/hr .[id number] AMY Administration Heparin Sodium/Dextrose 25,000 unit in 250 mls @ 0 mls/hr 08/07/18 01:17 12:06 Heparin/D5w 25,000 U/250 Ml IV.CONT 800 units/hr TITRATE PRN 8 mls/hr Per Protocol Administration Protocol Per Protocol Insulin Aspart 0 unit 08/05/18 18:00 08/07/18 12:05 Novolog Insulin Correctional Sugar Inj SQ Not Given Q6HR [facility] Protocol Pantoprazole Sodium 40 mg 08/04/18 14:00 08/07/18 01:00 Protonix Inj IV.PUSH 40 mg Q12H AMY Administration Senna/Docusate Sodium 1 tab 08/03/18 21:00 08/07/18 08:52 Margoth-Colace PO Not Given BID [facility] Sodium Chloride 2 ml 08/03/18 21:00 08/07/18 08:52 Ns Flush IV.FLUSH Not Given BID [facility] Warfarin Sodium 5 mg 08/06/18 16:00 08/06/18 16:34 Coumadin PO 5 mg DAILY@1600 AMY Administration Objective Remarks: GENERAL: Well-nourished, well-developed male patient, in no acute distress. SKIN: Warm and dry. HEAD: Normocephalic. Scar to right cheek, anterior to ear. Droop to right upper lip, chronic per pt. EYES: No scleral icterus. No injection or drainage. PEARLA MOUTH: Gilbert, moist mucous membranes. No petechiae, ulcers or lesions noted. NECK: Supple, trachea midline. CARDIOVASCULAR: Regular rate and rhythm without murmurs. RESPIRATORY: Posterior breath sounds clear, equal bilaterally. Nonlabored. GASTROINTESTINAL: Abdomen soft, non-tender, nondistended. EXTREMITIES: No cyanosis, or edema. MUSCULOSKELETAL: Adequate muscle tone. NEUROLOGICAL: No obvious focal deficit. Awake, alert, and oriented x3. PSYCHIATRIC: Appropriate mood and affect; insight and judgment normal. Assessment/Plan - Plan Plan: 1. Pulmonary embolism, with right heart strain, s/p activase infusion on . Continues on heparin drip, APTT 45.1. Currently being bridged to Coumadin , continue heparin drip until therapeutic INR 2-3. 2. Pt with past history of unprovoked DVTs, now with P.E. requiring activase. Pt will need lifelong anticoagulation. 3. Thrombocytopenia, continues to improve. We will continue to monitor. 4. Continue to monitor closely for bleeding and neuro checks per policy. - Attending Statement The exam, history, and the medical decision-making described in the above note were completed with the assistance of the mid-level provider. I reviewed and agree with the findings presented. I attest that I had a [id number] encounter with the patient on the same day, and personally performed and documented my assessment and findings in the medical record. Patient denies any new complaint He feels better Continue heparin with bridge to Coumadin INR still subtherapeutic
--- NOTE | 2018-08-07 15:38 | P.PNIM ---
Subjective Interval history: Patient says he is feeling well. Denies any chest pain. Reports shortness of breath improved. Physical Exam Vital signs: Vital Signs 08/06/18 16:00 08/06/18 17:00 08/06/18 17:51 Temperature 97.6 F Pulse Rate 80 82 83 Respiratory Rate 14 Blood Pressure 125/83 Pulse Oximetry 96 08/06/18 19:00 08/06/18 20:00 08/06/18 21:00 Temperature 98.9 F Pulse Rate 80 87 73 Respiratory Rate 16 Blood Pressure 130/81 Pulse Oximetry 96 08/06/18 21:15 08/06/18 22:00 08/06/18 23:00 Temperature Pulse Rate 87 88 82 Respiratory Rate 16 Blood Pressure Pulse Oximetry 08/07/18 00:00 08/07/18 01:00 08/07/18 02:00 Temperature 98.6 F Pulse Rate 88 69 82 Respiratory Rate 17 Blood Pressure 141/89 H Pulse Oximetry 94 L 08/07/18 03:00 08/07/18 04:00 08/07/18 05:00 Temperature 98 F Pulse Rate 76 79 77 Respiratory Rate 17 Blood Pressure 101/69 Pulse Oximetry 94 L 08/07/18 06:00 08/07/18 07:00 08/07/18 08:00 Temperature 98.4 F Pulse Rate 78 70 86 Respiratory Rate 20 Blood Pressure 118/78 Pulse Oximetry 97 08/07/18 08:36 08/07/18 09:00 08/07/18 10:00 Temperature Pulse Rate 71 70 72 Respiratory Rate 16 Blood Pressure Pulse Oximetry 93 L 08/07/18 11:00 08/07/18 12:00 08/07/18 12:56 Temperature 98.0 F Pulse Rate 72 80 82 Respiratory Rate 18 16 Blood Pressure 159/79 H Pulse Oximetry 94 L Intake & Output 08/06/18 08/07/18 08/07/18 18:59 06:59 18:59 Intake Total 1580 / 1580 1240 / 1240 250 / 250 Output Total 950 / 950 900 / 900 Balance 630 / 630 340 / 340 250 / 250 Weight 82.1 kg Intake: IV 1000 / 1000 1000 / 1000 250 / 250 NS Inj 1,000 ML @ 75 mls/hr IV. 1000 / 1000 1000 / 1000 CONT .[id number] [facility] Rx#:[id number] Oral 580 / 580 240 / 240 Output: Urine 950 / 950 900 / 900 Other: Date of Last Bowel Movement 08/04/18 08/06/18 08/06/18 Narrative: GENERAL: Patient lying in bed. Appears comfortable. SKIN: Warm and dry. HEAD: Normocephalic. EYES: No scleral icterus. No injection or drainage. NECK: Supple, trachea midline. No JVD. CARDIOVASCULAR: Regular rate and rhythm without murmurs, gallops, or rubs. RESPIRATORY: Breath sounds equal bilaterally. No accessory muscle use. GASTROINTESTINAL: Abdomen soft, non-tender, nondistended. MUSCULOSKELETAL: No cyanosis, or edema. BACK: Nontender without obvious deformity. No CVA tenderness. Results - Labs CBC & Chem 7: 08/06/18 05:14 08/06/18 05:14 Laboratory Results - last 24 hr 08/06/18 08/06/18 08/07/18 17:48 23:31 05:23 PT INR APTT POC Glucose 84 105 98 08/07/18 08/07/18 08/07/18 05:26 11:03 11:58 PT 11.0 INR 1.1 APTT 45.1 H POC Glucose 91 Assessment and Plan - Plan //Acute unprovoked extensive bilateral pulmonary embolism //Hypotension-resolved //Elevated troponin secondary to RV strain //Acute kidney injury-resolved //Lower extremity DVT //Hypertension //Diabetes //History of DVT and PE in 2012 PLAN: NEURO: -Patient denies any pain -No long-acting sedation -Hold tramadol, use Tylenol if needed RESP/CV: -CTA reviewed personally and discussed with hematology Dr. Roberts -Patient meets criteria for TPA administration. (Extensive bilateral PE with severe clot burden, hypotension, elevated troponin and Echo indicating RV strain ) -s/p alteplase 9 mg IV bolus, followed by 41 mg infusion over 1 hour (total 50 mg) -Continue IV heparin per protocol -Elevated troponin secondary to RV strain and massive pulmonary embolism -2D Echo right ventricle is moderately dilated. The right ventricular systolic function is mildly decreased. TAPSE not calculated -Cardiology Dr. Kelly is following -Hold amlodipine -Pulmonary consulted for long-term follow-up, has seen Dr. Barrera before -Need lifelong anticoagulation = 08/06. Patient will need PT and OT evaluation. May need rehab. Continue on heparin drip as per hematology. Cardiology following. Patient will need repeat echo prior to discharge as per cardiology. Plan transition to by mouth anticoagulation. = 08/07. Echocardiogram with preserved ejection fraction. Appreciate cardiology assistance. Still on heparin drip transitioning to warfarin. Await PT final recommendations regarding rehab versus home with home health. GI: -Cardiac diet, IV Protonix 40 mg every 12 : -Monitor renal function closely. Creatinine improving -NS 75 ml per hour -Creatinine on admission was 1.86 improved to 1.4 -Continue to trend, ORAL most likely secondary to dehydration and hypoperfusion = AK I resolved. ID: -No antibiotics. Monitor for infection HEME: -Monitor CBC, coags -Status post IV TPA and continue IV heparin infusion as above //Thrombocytopenia. Platelets 114 on admission. We will continue to monitor. ENDO: -Electrolyte replacement per protocol -Sliding scale insulin PROPH: -Bilateral lower extremity SCDs. IV Protonix -IV Heparin LINES: -Utilize peripheral IVs, central line if needed Discharge Planning: Pending PT and OT evaluation Patient may need rehab. Pending transition to by mouth of the coagulation as per hematology -Patient will need transition to warfarin.
--- NOTE | 2018-08-07 15:40 | P.DCO ---
- Diagnosis (1) DVT (deep venous thrombosis) Status: Acute (2) Hypertension Status: Acute (3) Pulmonary embolism Status: Acute - Physical Therapy Order: Evaluate and treat - Home Health Nursing Order: Wound care and dressing changes Instructions: Patient will need home INRs checked 3 times weekly to be communicated to patient 's editor managing newspaper Dr. Gee. - Bumper Operator Order: To evaluate: Living conditions/environment Order: To provide: Long range planning - Case Management Consult Case Management Consult-Home Health: Yes - Certification I have seen patient Nestor Almaguer on 08/07/18. My clinical findings support the need for the requested home health care services because: Deconditioned with increased weakness I certify that my clinical findings support that this patient is homebound because: Unsafe to leave home unassisted
--- NOTE | 2018-08-07 17:37 | P.PN ---
Subjective Interval history: Breathing better. Off O2 sat 96. On Coumadin now. Physical Exam Vital signs: Vital Signs 08/06/18 17:51 08/06/18 19:00 08/06/18 20:00 Temperature 98.9 F Pulse Rate 83 80 87 Respiratory Rate 16 Blood Pressure 130/81 Pulse Oximetry 96 08/06/18 21:00 08/06/18 21:15 08/06/18 22:00 Temperature Pulse Rate 73 87 88 Respiratory Rate 16 Blood Pressure Pulse Oximetry 08/06/18 23:00 08/07/18 00:00 08/07/18 01:00 Temperature 98.6 F Pulse Rate 82 88 69 Respiratory Rate 17 Blood Pressure 141/89 H Pulse Oximetry 94 L 08/07/18 02:00 08/07/18 03:00 08/07/18 04:00 Temperature 98 F Pulse Rate 82 76 79 Respiratory Rate 17 Blood Pressure 101/69 Pulse Oximetry 94 L 08/07/18 05:00 08/07/18 06:00 08/07/18 07:00 Temperature Pulse Rate 77 78 70 Respiratory Rate Blood Pressure Pulse Oximetry 08/07/18 08:00 08/07/18 08:36 08/07/18 09:00 Temperature 98.4 F Pulse Rate 86 71 70 Respiratory Rate 20 16 Blood Pressure 118/78 Pulse Oximetry 97 93 L 08/07/18 10:00 08/07/18 11:00 08/07/18 12:00 Temperature 98.0 F Pulse Rate 72 72 80 Respiratory Rate 18 Blood Pressure 159/79 H Pulse Oximetry 94 L 08/07/18 12:56 Temperature Pulse Rate 82 Respiratory Rate 16 Blood Pressure Pulse Oximetry Intake & Output 08/06/18 08/07/18 08/07/18 18:59 06:59 18:59 Intake Total 1580 / 1580 1240 / 1240 1101 / 1101 Output Total 950 / 950 900 / 900 Balance 630 / 630 340 / 340 1101 / 1101 Weight 82.1 kg Intake: IV 1000 / 1000 1000 / 1000 1101 / 1101 NS Inj 1,000 ML @ 75 mls/hr IV. 1000 / 1000 1000 / 1000 851 / 851 CONT .[id number] [facility] Rx#:[id number] Oral 580 / 580 240 / 240 Output: Urine 950 / 950 900 / 900 Other: Date of Last Bowel Movement 08/04/18 08/06/18 08/06/18 Narrative: GENERAL:Mid aged A/A male , Appears comfortable. SKIN: Warm and dry. HEAD: Normocephalic. EYES: No scleral icterus. No injection or drainage. NECK: Supple, trachea midline. No JVD. CARDIOVASCULAR: Regular rate and rhythm without murmurs, gallops, or rubs. RESPIRATORY: Breath sounds equal bilaterally. No wheeze. No accessory muscle use. GASTROINTESTINAL: Abdomen soft, non-tender, nondistended. MUSCULOSKELETAL: No cyanosis, or edema. BACK: Nontender without obvious deformity. No CVA tenderness. Results - Labs CBC & Chem 7: 08/06/18 05:14 08/06/18 05:14 Laboratory Results - last 24 hr 08/06/18 08/06/18 08/07/18 17:48 23:31 05:23 PT INR APTT POC Glucose 84 105 98 08/07/18 08/07/18 08/07/18 05:26 11:03 11:58 PT 11.0 INR 1.1 APTT 45.1 H POC Glucose 91 08/07/18 17:06 PT INR APTT POC Glucose 81 Assessment and Plan - Assessment (1) DVT (deep venous thrombosis) Code(s): I82.409 - Acute embolism and thrombosis of unspecified deep veins of unspecified lower extremity Status: Acute (2) NSTEMI (non-ST elevated myocardial infarction) Code(s): I21.4 - Non-ST elevation (NSTEMI) myocardial infarction Status: Acute (3) Pulmonary embolism Code(s): I26.99 - Other pulmonary embolism without acute cor pulmonale Status : Acute (4) Hypertension Code(s): I10 - Essential (primary) hypertension Status: Acute - Plan 1. O2 2 L N/C.PRN 2. Cont heparin drip. 3. Coumadin 5 mg daily. 4. Albuterol Nebs qid prn 5.PT INR , daily 6. Get PFT with bronchodilators
--- NOTE | 2018-08-07 23:10 | P.PNCA ---
Subjective Interval history: No events overnight Feeling well Medications and Allergies Active Medications: Active Medications Acetaminophen (Tylenol) 650 mg PO Q4H PRN PRN Reason: Temp > 100.4 Last Admin: 08/07/18 20:49 Dose: 650 mg Al Hydroxide/Mg Hydroxide (Milk Of Magnesia Liq) 30 ml PO Q12H PRN PRN Reason: Mild Constipation Albuterol (Duoneb Neb (May)) 1 ampul NEB Q6HR WHILE AWAKE NEB [facility] Last Admin: 08/07/18 20:45 Dose: 1 ampul Bisacodyl (Dulcolax Supp) 10 mg RECTAL DAILY PRN PRN Reason: SEVERE CONSITIPATION Chlorhexidine Gluconate (Chlorhexidine 2% Cloth) 3 pack TOPICAL DAILY@0400 AMY Stop: 08/10/18 03:59 Last Admin: 08/07/18 03:00 Dose: Not Given Chlorhexidine Gluconate (Chlorhexidine 2% Cloth) 3 pack TOPICAL DAILY@0400 PRN PRN Reason: Extra cloth needed Stop: 08/10/18 03:59 Dextrose (D50w Vial) 50 ml IV.PUSH UNSCH PRN PRN Reason: PER HYPOGLYCEMIA PROTOCOL Glucagon (Glucagon Inj) 1 mg OTHER PRN PRN PRN Reason: for Hypoglycemia Protocol Heparin Sodium/Dextrose (Heparin/D5w 25,000 U/250 Ml) 25,000 unit in 250 mls @ 0 mls/hr IV.CONT TITRATE PRN; Protocol PRN Reason: Per Protocol Last Admin: 08/07/18 12:06 Dose: 800 units/hr, 8 mls/hr Insulin Aspart (Novolog Insulin Correctional Sugar Inj) 0 unit SQ Q6HR [facility]; Protocol Last Admin: 08/07/18 17:07 Dose: Not Given Lactulose (Lactulose Liq) 30 ml PO DAILY PRN PRN Reason: SEVERE CONSITIPATION Ondansetron HCl (Zofran Inj) 4 mg IV.PUSH Q6H PRN PRN Reason: NAUSEA OR VOMITING Pantoprazole Sodium (Protonix Inj) 40 mg IV.PUSH Q12H [facility] Last Admin: 08/07/18 14:27 Dose: 40 mg Senna/Docusate Sodium (Margoth-Colace) 1 tab PO BID [facility] Last Admin: 08/07/18 20:49 Dose: Not Given Sennosides (Senokot) 17.2 mg PO Q12H PRN PRN Reason: Moderate Constipation Sodium Chloride (Ns Flush) 2 ml IV.FLUSH PRN PRN PRN Reason: FLUSH AFTER USING IV ACCESS Sodium Chloride (Ns Flush) 2 ml IV.FLUSH BID [facility] Last Admin: 08/07/18 20:49 Dose: 2 ml Warfarin Sodium (Coumadin) 5 mg PO DAILY@1600 [facility] Last Admin: 08/07/18 17:07 Dose: 5 mg Allergies Allergy/AdvReac Type Severity Reaction Status Date / Time No Known Allergies Allergy Unverified 05/16/18 16:37 Home Medications Medication Instructions Recorded Confirmed Type amlodipine mg PO DAILY 08/03/18 History tramadol mg PO PRN 08/03/18 History Physical Exam Vital signs: Vital Signs 08/07/18 00:00 08/07/18 01:00 08/07/18 02:00 Temperature 98.6 F Pulse Rate 88 69 82 Respiratory Rate 17 Blood Pressure 141/89 H Pulse Oximetry 94 L 08/07/18 03:00 08/07/18 04:00 08/07/18 05:00 Temperature 98 F Pulse Rate 76 79 77 Respiratory Rate 17 Blood Pressure 101/69 Pulse Oximetry 94 L 08/07/18 06:00 08/07/18 07:00 08/07/18 08:00 Temperature 98.4 F Pulse Rate 78 70 86 Respiratory Rate 20 Blood Pressure 118/78 Pulse Oximetry 97 08/07/18 08:36 08/07/18 09:00 08/07/18 10:00 Temperature Pulse Rate 71 70 72 Respiratory Rate 16 Blood Pressure Pulse Oximetry 93 L 08/07/18 11:00 08/07/18 12:00 08/07/18 12:56 Temperature 98.0 F Pulse Rate 72 80 82 Respiratory Rate 18 16 Blood Pressure 159/79 H Pulse Oximetry 94 L 08/07/18 13:00 08/07/18 14:00 08/07/18 15:00 Temperature Pulse Rate 88 88 84 Respiratory Rate Blood Pressure Pulse Oximetry 08/07/18 16:00 08/07/18 17:00 08/07/18 18:00 Temperature Pulse Rate 88 84 80 Respiratory Rate 18 Blood Pressure 148/84 H Pulse Oximetry 94 L 08/07/18 20:00 08/07/18 20:46 Temperature 98.0 F Pulse Rate 75 84 Respiratory Rate 18 18 Blood Pressure 155/89 H Pulse Oximetry 93 L Intake & Output 08/07/18 08/07/18 08/08/18 06:59 18:59 06:59 Intake Total 1240 / 1240 1941 / 1941 Output Total 900 / 900 650 / 650 Balance 340 / 340 1291 / 1291 Weight 82.1 kg Intake: IV 1000 / 1000 1101 / 1101 NS Inj 1,000 ML @ 75 mls/hr IV. 1000 / 1000 851 / 851 CONT .[id number] [facility] Rx#:[id number] Oral 240 / 240 840 / 840 Output: Urine 900 / 900 650 / 650 Other: Date of Last Bowel Movement 08/06/18 08/06/18 Narrative: GENERAL:Mid aged A/A male , Appears comfortable. SKIN: Warm and dry. HEAD: Normocephalic. EYES: No scleral icterus. No injection or drainage. NECK: Supple, trachea midline. No JVD. CARDIOVASCULAR: Regular rate and rhythm without murmurs, gallops, or rubs. RESPIRATORY: Breath sounds equal bilaterally. No wheeze. No accessory muscle use. GASTROINTESTINAL: Abdomen soft, non-tender, nondistended. MUSCULOSKELETAL: No cyanosis, or edema. BACK: Nontender without obvious deformity. No CVA tenderness. Results 08/06/18 05:14 08/06/18 05:14 Cardiac Enzymes 08/06/18 Range/Units 05:14 AST 31 (15-37) U/L Coagulation 08/06/18 08/07/18 08/07/18 Range/Units 05:14 05:26 11:03 PT 11.0 (9.8-11.6) sec APTT 48.0 H 45.1 H (23.4-31.7) sec CBC 08/06/18 Range/Units 05:14 WBC 4.0 (4.0-11.0) th/mm3 RBC 3.96 L (4.50-5.90) mil/mm3 Hgb 13.2 (13.0-17.0) gm/dL Hct 39.8 (39.0-51.0) % Plt Count 83 L (150-450) th/mm3 Comprehensive Metabolic Panel 08/06/18 Range/Units 05:14 Sodium 142 (136-145) meq/L Potassium 3.8 (3.5-5.1) meq/L Chloride 111 H (98-107) meq/L Carbon Dioxide 23.7 (21.0-32.0) meq/L BUN 11 (7-18) mg/dL Creatinine 1.15 (0.60-1.30) mg/dL Calcium 8.4 L (8.5-10.1) mg/dL AST 31 (15-37) U/L ALT 32 (12-78) U/L Alkaline Phosphatase 53 (45-117) U/L Total Protein 6.2 L D (6.4-8.2) g/dL Albumin 3.2 L (3.4-5.0) g/dL Intake and Output 08/07/18 08/07/18 08/08/18 14:59 22:59 06:59 Intake Total 250 / 250 1691 / 1691 Output Total 650 / 650 Balance 250 / 250 1041 / 1041 Intake: IV 250 / 250 851 / 851 NS Inj 1,000 ML @ 75 mls/hr IV. 851 / 851 CONT .[id number] [facility] Rx#:[id number] Oral 840 / 840 Output: Urine 650 / 650 Other: Date of Last Bowel Movement 08/06/18 - Imaging and Cardiology Imaging: Impressions Chest X-Ray 08/06/18 06:00 CONCLUSION: 1. Stable mild cardiomegaly. 2. No focal infiltrate or pulmonary vascular congestion. 3. Degenerative changes throughout the thoracic spine and the bilateral shoulders. 4. Marked subacromial space narrowing bilaterally suggesting rotator cuff pathology bilaterally. Clinical correlation is recommended. Assessment and Plan - Assessment (1) DVT (deep venous thrombosis) Code(s): I82.409 - Acute embolism and thrombosis of unspecified deep veins of unspecified lower extremity Status: Acute (2) NSTEMI (non-ST elevated myocardial infarction) Code(s): I21.4 - Non-ST elevation (NSTEMI) myocardial infarction Status: Acute - Plan 1) DVT/PE with right heart strain s/p TPA, now on heparin drip Plan to transition to oral anticoagulation Unprovoked with previous history of DVT/PE Most likely life-long anticoagulation per Heme/Onc 2) Elevated troponin Type 2 due to right heart strain No further work up necessary 3) Repeat echo showing severe PHTN Will need follow up echos outpt to continue to follow
[2018-08-08] MEDS: Pantoprazole Inj 40 MG Vial IV.PUSH SCH ×2 (04:14→14:45)
[2018-08-08] MEDS: Chlorhexidine Gluconate 2% 1 Pack (2 Cloths) TOPICAL SCH (05:23)
[2018-08-08] MEDS: Insulin NovoLOG Aspart Correctional Sugar Inj SQ SCH ×3 (05:36→18:00)
[2018-08-08 06:06] LABS: Baso % (Auto) 0.7 % (0.0-2.0); Eos # (Auto) 0.3 th/mm3 (0.0-0.4); Eos % (Auto) 6.9 % (0.0-4.0); Hematocrit 37.5 % (39.0-51.0); Hemoglobin 12.9 gm/dL (13.0-17.0); Lymph # (Auto) 1.5 th/mm3 (1.0-4.8); Lymph % (Auto) 39.7 % (9.0-44.0); Mean Corpuscular HGB Conc 34.4 % (32.0-36.0); Mean Corpuscular Hemoglobin 33.7 pg (27.0-34.0); Mean Corpuscular Volume 98.1 fL (80.0-100.0); Mono # (Auto) 0.2 th/mm3 (0.0-0.9); Mono % (Auto) 6.1 % (0.0-8.0); Neut # (Auto) 1.8 th/mm3 (1.8-7.7); Neut % (Auto) 46.6 % (16.0-70.0); Platelet Count 107 th/mm3 (150-450); Red Blood Count 3.83 mil/mm3 (4.50-5.90); Red Cell Distribution Width 14.4 % (11.6-17.2); White Blood Count 3.8 th/mm3 (4.0-11.0)
[2018-08-08 06:07] LABS: Activated Partial Thrombo Time 46.7 sec (23.4-31.7); INR 1.1 Ratio; Prothrombin Time 11.1 sec (9.8-11.6)
[2018-08-08 06:15] LABS: Albumin 3.3 g/dL (3.4-5.0); Calcium 8.2 mg/dL (8.5-10.1); Carbon Dioxide 24.6 meq/L (21.0-32.0); Magnesium 1.6 mg/dL (1.5-2.5); Potassium 3.4 meq/L (3.5-5.1)
[2018-08-08 06:25] LABS: Phosphorus 4.1 mg/dL (2.5-4.9); Total Protein 6.6 g/dL (6.4-8.2)
[2018-08-08] MEDS: Senna/Docusate Sodium 8.6/50 MG Tablet PO SCH ×2 (08:39→22:05)
--- NOTE | 2018-08-08 10:59 | P.PNONC ---
Subjective Interval history: Patient denies any new complaint. He is on heparin and Coumadin. Tolerating it well Objective Vital Signs/Intake & Output: Vital Signs 08/07/18 11:00 08/07/18 12:00 08/07/18 12:56 Temperature 98.0 F Pulse Rate 72 80 82 Respiratory Rate 18 16 Blood Pressure 159/79 H Pulse Oximetry 94 L 08/07/18 13:00 08/07/18 14:00 08/07/18 15:00 Temperature Pulse Rate 88 88 84 Respiratory Rate Blood Pressure Pulse Oximetry 08/07/18 16:00 08/07/18 17:00 08/07/18 18:00 Temperature Pulse Rate 88 84 80 Respiratory Rate 18 Blood Pressure 148/84 H Pulse Oximetry 94 L 08/07/18 19:00 08/07/18 20:00 08/07/18 20:46 Temperature 98.0 F Pulse Rate 83 82 84 Respiratory Rate 18 18 Blood Pressure 155/89 H Pulse Oximetry 93 L 08/07/18 21:00 08/07/18 22:00 08/07/18 23:00 Temperature Pulse Rate 76 88 75 Respiratory Rate Blood Pressure Pulse Oximetry 08/08/18 00:00 08/08/18 01:00 08/08/18 02:00 Temperature 98.2 F Pulse Rate 76 81 82 Respiratory Rate 16 Blood Pressure 147/83 H Pulse Oximetry 96 08/08/18 03:00 08/08/18 04:00 08/08/18 05:00 Temperature 98.2 F Pulse Rate 83 74 86 Respiratory Rate 16 Blood Pressure 147/83 H Pulse Oximetry 96 08/08/18 06:00 08/08/18 09:00 Temperature Pulse Rate 98 H 88 Respiratory Rate 15 Blood Pressure Pulse Oximetry 95 Intake & Output 08/07/18 08/08/18 08/08/18 18:59 06:59 18:59 Intake Total 1941 / 1941 240 / 240 Output Total 650 / 650 Balance 1291 / 1291 240 / 240 Weight 82.4 kg Intake: IV 1101 / 1101 NS Inj 1,000 ML @ 75 mls/hr IV. 851 / 851 CONT .[id number] [facility] Rx#:[id number] Oral 840 / 840 240 / 240 Output: Urine 650 / 650 Other: # Voids 1 Date of Last Bowel Movement 08/06/18 Result Diagrams: 08/08/18 05:26 08/08/18 05:26 Laboratory Results: Laboratory Results - last 24 hr 08/07/18 08/07/18 08/07/18 11:03 11:58 17:06 WBC RBC Hgb Hct MCV MCH MCHC RDW Plt Count MPV Neut % (Auto) Lymph % (Auto) Grady % (Auto) Eos % (Auto) Baso % (Auto) Neut # (Auto) Lymph # (Auto) Grady # (Auto) Eos # (Auto) Baso # (Auto) WBC Differential Differential Comment PT 11.0 INR 1.1 APTT Sodium Potassium Chloride Carbon Dioxide Anion Gap BUN Creatinine Estimated GFR POC Glucose 91 81 Random Glucose Calcium Phosphorus Magnesium Total Bilirubin Direct Bilirubin Indirect Bilirubin AST ALT Alkaline Phosphatase Total Protein Albumin 08/07/18 08/08/18 08/08/18 23:43 05:26 05:26 WBC 3.8 L RBC 3.83 L Hgb 12.9 L Hct 37.5 L MCV 98.1 MCH 33.7 MCHC 34.4 RDW 14.4 Plt Count 107 L MPV 8.0 Neut % (Auto) 46.6 Lymph % (Auto) 39.7 Grady % (Auto) 6.1 Eos % (Auto) 6.9 H Baso % (Auto) 0.7 Neut # (Auto) 1.8 Lymph # (Auto) 1.5 Grady # (Auto) 0.2 Eos # (Auto) 0.3 Baso # (Auto) 0.0 WBC Differential . Differential Comment Auto diff final PT 11.1 INR 1.1 APTT 46.7 H Sodium Potassium Chloride Carbon Dioxide Anion Gap BUN Creatinine Estimated GFR POC Glucose 109 Random Glucose Calcium Phosphorus Magnesium Total Bilirubin Direct Bilirubin Indirect Bilirubin AST ALT Alkaline Phosphatase Total Protein Albumin 08/08/18 08/08/18 08/08/18 05:26 05:34 08:36 WBC RBC Hgb Hct MCV MCH MCHC RDW Plt Count MPV Neut % (Auto) Lymph % (Auto) Grady % (Auto) Eos % (Auto) Baso % (Auto) Neut # (Auto) Lymph # (Auto) Grady # (Auto) Eos # (Auto) Baso # (Auto) WBC Differential Differential Comment PT INR APTT Sodium 142 Potassium 3.4 L Chloride 109 H Carbon Dioxide 24.6 Anion Gap 8 BUN 6 L Creatinine 1.06 Estimated GFR 86 L POC Glucose 109 99 Random Glucose 98 Calcium 8.2 L Phosphorus 4.1 Magnesium 1.6 Total Bilirubin 0.6 Direct Bilirubin 0.2 Indirect Bilirubin 0.4 AST 73 H ALT 64 Alkaline Phosphatase 63 Total Protein 6.6 Albumin 3.3 L Medications: Active Medications Generic Name Dose Route Start Last Admin Trade Name Freq PRN Reason Stop Dose Admin Acetaminophen 650 mg 08/03/18 18:28 08/07/18 20:49 Tylenol PO 650 mg Q4H PRN Administration Temp > 100.4 Albuterol 1 ampul 08/05/18 14:00 08/08/18 08:58 Duoneb Neb ([facility]) NEB 1 ampul Q6HR WHILE AWAKE NEB [facility] Administration Chlorhexidine Gluconate 3 pack 08/05/18 04:00 08/08/18 05:23 Chlorhexidine 2% Cloth TOPICAL 08/10/18 03:59 Not Given DAILY@0400 [facility] Heparin Sodium/Dextrose 25,000 unit in 250 mls @ 0 mls/hr 08/07/18 01:17 12:06 Heparin/D5w 25,000 U/250 Ml IV.CONT 800 units/hr TITRATE PRN 8 mls/hr Per Protocol Administration Protocol Per Protocol Insulin Aspart 0 unit 08/05/18 18:00 08/08/18 05:36 Novolog Insulin Correctional Sugar Inj SQ Not Given Q6HR [facility] Protocol Ondansetron HCl 4 mg 08/03/18 18:28 08/08/18 05:44 Zofran Inj IV.PUSH 4 mg Q6H PRN Administration NAUSEA OR VOMITING Pantoprazole Sodium 40 mg 08/04/18 14:00 08/08/18 04:14 Protonix Inj IV.PUSH 40 mg Q12H [facility] Administration Senna/Docusate Sodium 1 tab 08/03/18 21:00 08/08/18 08:39 Margoth-Colace PO Not Given BID [facility] Sodium Chloride 2 ml 08/03/18 21:00 08/08/18 08:39 Ns Flush IV.FLUSH 2 ml BID [facility] Administration Warfarin Sodium 5 mg 08/06/18 16:00 08/07/18 17:07 Coumadin PO 5 mg DAILY@1600 [facility] Administration Objective Remarks: GENERAL: Well-nourished, well-developed male patient, in no acute distress. SKIN: Warm and dry. HEAD: Normocephalic. Scar to right cheek, anterior to ear. Droop to right upper lip, chronic per pt. EYES: No scleral icterus. No injection or drainage. PEARLA MOUTH: Citrus, moist mucous membranes. No petechiae, ulcers or lesions noted. NECK: Supple, trachea midline. CARDIOVASCULAR: Regular rate and rhythm without murmurs. RESPIRATORY: Posterior breath sounds clear, equal bilaterally. Nonlabored. GASTROINTESTINAL: Abdomen soft, non-tender, nondistended. EXTREMITIES: No cyanosis, or edema. MUSCULOSKELETAL: Adequate muscle tone. NEUROLOGICAL: No obvious focal deficit. Awake, alert, and oriented x3. PSYCHIATRIC: Appropriate mood and affect; insight and judgment normal. Assessment/Plan - Plan Plan: 1. Pulmonary embolism, with right heart strain, s/p activase infusion on . Continues on heparin drip, APTT 45.1. Currently being bridged to Coumadin , continue heparin drip until therapeutic INR 2-3. 2. Pt with past history of unprovoked DVTs, now with P.E. requiring activase. Pt will need lifelong anticoagulation. 3. Thrombocytopenia, continues to improve. We will continue to monitor. 4. Continue to monitor closely for bleeding and neuro checks per policy. 08/08/2018 INR still subtherapeutic. Coumadin 5 mg was started 2 days ago August 06, 2018. Patient could not afford Eliquis Previously Dr. Cormier head usher has manage his Coumadin. Patient wants Drs. Cormier to do monitoring of Coumadin again I have discussed with hospitalist Dr. Mosley. I will ask him if he can manage Coumadin and INR while he is inpatient. I will be out of town for 2 weeks. I will sign off on the case Available as needed Discussed with nurse and patient as well
[2018-08-08] MEDS ORDERED: Heparin 10,000 UNITS/10 ML Vial (for IV use) IV.PUSH PRN ×2 (13:34)
[2018-08-08] MEDS ORDERED: Warfarin Consult Pharmacy OTHER PRN (13:42)
[2018-08-08] MEDS: Acetaminophen 325 MG Tablet PO PRN ×2 (14:46→21:01)
--- NOTE | 2018-08-08 15:43 | P.PNIM ---
Subjective Interval history: Patient walking around unit. Appears comfortable. Physical Exam Vital signs: Vital Signs 08/07/18 16:00 08/07/18 17:00 08/07/18 18:00 Temperature Pulse Rate 88 84 80 Respiratory Rate 18 Blood Pressure 148/84 H Pulse Oximetry 94 L 08/07/18 19:00 08/07/18 20:00 08/07/18 20:46 Temperature 98.0 F Pulse Rate 83 82 84 Respiratory Rate 18 18 Blood Pressure 155/89 H Pulse Oximetry 93 L 08/07/18 21:00 08/07/18 22:00 08/07/18 23:00 Temperature Pulse Rate 76 88 75 Respiratory Rate Blood Pressure Pulse Oximetry 08/08/18 00:00 08/08/18 01:00 08/08/18 02:00 Temperature 98.2 F Pulse Rate 76 81 82 Respiratory Rate 16 Blood Pressure 147/83 H Pulse Oximetry 96 08/08/18 03:00 08/08/18 04:00 08/08/18 05:00 Temperature 98.2 F Pulse Rate 83 74 86 Respiratory Rate 16 Blood Pressure 147/83 H Pulse Oximetry 96 08/08/18 06:00 08/08/18 07:00 08/08/18 08:00 Temperature 98.4 F Pulse Rate 98 H 75 81 Respiratory Rate 16 Blood Pressure 158/94 H Pulse Oximetry 96 08/08/18 09:00 08/08/18 11:00 08/08/18 12:00 Temperature 98.2 F Pulse Rate 88 90 81 Respiratory Rate 15 16 Blood Pressure 131/71 Pulse Oximetry 95 94 L 08/08/18 12:24 Temperature Pulse Rate 90 Respiratory Rate 15 Blood Pressure Pulse Oximetry Intake & Output 08/07/18 08/08/18 08/08/18 18:59 06:59 18:59 Intake Total 1941 / 1941 240 / 240 Output Total 650 / 650 Balance 1291 / 1291 240 / 240 Weight 82.4 kg Intake: IV 1101 / 1101 NS Inj 1,000 ML @ 75 mls/hr IV. 851 / 851 CONT .[id number] [facility] Rx#:[id number] Oral 840 / 840 240 / 240 Output: Urine 650 / 650 Other: # Voids 1 Date of Last Bowel Movement 08/06/18 08/07/18 Narrative: GENERAL:Mid aged A/A male , Appears comfortable. Patient seen walking on unit. Appears comfortable. SKIN: Warm and dry. HEAD: Normocephalic. EYES: No scleral icterus. No injection or drainage. NECK: Supple, trachea midline. No JVD. CARDIOVASCULAR: Regular rate and rhythm without murmurs, gallops, or rubs. RESPIRATORY: Breath sounds equal bilaterally. No wheeze. No accessory muscle use. GASTROINTESTINAL: Abdomen soft, non-tender, nondistended. MUSCULOSKELETAL: No cyanosis, or edema. BACK: Nontender without obvious deformity. No CVA tenderness. Results - Labs CBC & Chem 7: 08/08/18 05:26 08/08/18 05:26 Laboratory Results - last 24 hr 08/07/18 08/07/18 08/08/18 17:06 23:43 05:26 WBC RBC Hgb Hct MCV MCH MCHC RDW Plt Count MPV Neut % (Auto) Lymph % (Auto) [place] % (Auto) Eos % (Auto) Baso % (Auto) Neut # (Auto) Lymph # (Auto) [place] # (Auto) Eos # (Auto) Baso # (Auto) WBC Differential Differential Comment PT 11.1 INR 1.1 APTT 46.7 H Sodium Potassium Chloride Carbon Dioxide Anion Gap BUN Creatinine Estimated GFR POC Glucose 81 109 Random Glucose Calcium Phosphorus Magnesium Total Bilirubin Direct Bilirubin Indirect Bilirubin AST ALT Alkaline Phosphatase Total Protein Albumin 08/08/18 08/08/18 08/08/18 05:26 05:26 05:34 WBC 3.8 L RBC 3.83 L Hgb 12.9 L Hct 37.5 L MCV 98.1 MCH 33.7 MCHC 34.4 RDW 14.4 Plt Count 107 L MPV 8.0 Neut % (Auto) 46.6 Lymph % (Auto) 39.7 [place] % (Auto) 6.1 Eos % (Auto) 6.9 H Baso % (Auto) 0.7 Neut # (Auto) 1.8 Lymph # (Auto) 1.5 [place] # (Auto) 0.2 Eos # (Auto) 0.3 Baso # (Auto) 0.0 WBC Differential . Differential Comment Auto diff final PT INR APTT Sodium 142 Potassium 3.4 L Chloride 109 H Carbon Dioxide 24.6 Anion Gap 8 BUN 6 L Creatinine 1.06 Estimated GFR 86 L POC Glucose 109 Random Glucose 98 Calcium 8.2 L Phosphorus 4.1 Magnesium 1.6 Total Bilirubin 0.6 Direct Bilirubin 0.2 Indirect Bilirubin 0.4 AST 73 H ALT 64 Alkaline Phosphatase 63 Total Protein 6.6 Albumin 3.3 L 08/08/18 08:36 WBC RBC Hgb Hct MCV MCH MCHC RDW Plt Count MPV Neut % (Auto) Lymph % (Auto) [place] % (Auto) Eos % (Auto) Baso % (Auto) Neut # (Auto) Lymph # (Auto) [place] # (Auto) Eos # (Auto) Baso # (Auto) WBC Differential Differential Comment PT INR APTT Sodium Potassium Chloride Carbon Dioxide Anion Gap BUN Creatinine Estimated GFR POC Glucose 99 Random Glucose Calcium Phosphorus Magnesium Total Bilirubin Direct Bilirubin Indirect Bilirubin AST ALT Alkaline Phosphatase Total Protein Albumin Assessment and Plan - Assessment (1) DVT (deep venous thrombosis) Code(s): I82.409 - Acute embolism and thrombosis of unspecified deep veins of unspecified lower extremity Status: Acute (2) Hypertension Code(s): I10 - Essential (primary) hypertension Status: Acute (3) Pulmonary embolism Code(s): I26.99 - Other pulmonary embolism without acute cor pulmonale Status : Acute - Plan //Acute unprovoked extensive bilateral pulmonary embolism //Hypotension-resolved //Elevated troponin secondary to RV strain //Acute kidney injury-resolved //Lower extremity DVT //Hypertension //Diabetes //History of DVT and PE in 2012 PLAN: NEURO: -Patient denies any pain -No long-acting sedation -Hold tramadol, use Tylenol if needed RESP/CV: -CTA reviewed personally and discussed with hematology Dr. Roberts -Patient meets criteria for TPA administration. (Extensive bilateral PE with severe clot burden, hypotension, elevated troponin and Echo indicating RV strain ) -s/p alteplase 9 mg IV bolus, followed by 41 mg infusion over 1 hour (total 50 mg) -Continue IV heparin per protocol -Elevated troponin secondary to RV strain and massive pulmonary embolism -2D Echo right ventricle is moderately dilated. The right ventricular systolic function is mildly decreased. TAPSE not calculated -Cardiology Dr. Kelly is following -Hold amlodipine -Pulmonary consulted for long-term follow-up, has seen Dr. Barrera before -Need lifelong anticoagulation = 08/06. Patient will need PT and OT evaluation. May need rehab. Continue on heparin drip as per hematology. Cardiology following. Patient will need repeat echo prior to discharge as per cardiology. Plan transition to by mouth anticoagulation. = 08/07. Echocardiogram with preserved ejection fraction. Appreciate cardiology assistance. Still on heparin drip transitioning to warfarin. Await PT final recommendations regarding rehab versus home with home health. = 08/08. Discussed with oncology who recommends discharging patient on bridging when INR is at least close to therapeutic. will ask nursing to try and teach patient how to inject Lovenox subcu. Patient's INR still 1.1. Would like to see at least some improvement prior to discharge on bridging. Heparin drip for now. GI: -Cardiac diet, IV Protonix 40 mg every 12 : -Monitor renal function closely. Creatinine improving -NS 75 ml per hour -Creatinine on admission was 1.86 improved to 1.4 -Continue to trend, ORAL most likely secondary to dehydration and hypoperfusion = ORAL resolved. ID: -No antibiotics. Monitor for infection HEME: -Monitor CBC, coags -Status post IV TPA and continue IV heparin infusion as above //Thrombocytopenia. Platelets 114 on admission. We will continue to monitor.= Platelets 107. No bleeding. Continue to monitor. ENDO: -Electrolyte replacement per protocol -Sliding scale insulin PROPH: -Bilateral lower extremity SCDs. IV Protonix -IV Heparin LINES: -Utilize peripheral IVs, central line if needed Discussed Condition With: Patient, nurse, hematology Discharge Planning: PT recommends home with no PT. Warfarin still subtherapeutic at 1.1. Due to extensive bilateral pulmonary embolism, would like to see at least some increase in INR prior to discharge on bridging. Nursing to try to instruct patient on subcu Lovenox bridging. Hopefully patient can do this. = Patient will need follow-up with cardiology as outpatient.
[2018-08-08 16:45] LABS: INR 1.1 Ratio; Prothrombin Time 11.4 sec (9.8-11.6)
--- NOTE | 2018-08-08 17:52 | P.PN ---
Subjective Interval history: He is off O2 and doing better.C/O some chest pains. INR is still low. Physical Exam Vital signs: Vital Signs 08/07/18 18:00 08/07/18 19:00 08/07/18 20:00 Temperature 98.0 F Pulse Rate 80 83 82 Respiratory Rate 18 Blood Pressure 155/89 H Pulse Oximetry 93 L 08/07/18 20:46 08/07/18 21:00 08/07/18 22:00 Temperature Pulse Rate 84 76 88 Respiratory Rate 18 Blood Pressure Pulse Oximetry 08/07/18 23:00 08/08/18 00:00 08/08/18 01:00 Temperature 98.2 F Pulse Rate 75 76 81 Respiratory Rate 16 Blood Pressure 147/83 H Pulse Oximetry 96 08/08/18 02:00 08/08/18 03:00 08/08/18 04:00 Temperature 98.2 F Pulse Rate 82 83 74 Respiratory Rate 16 Blood Pressure 147/83 H Pulse Oximetry 96 08/08/18 05:00 08/08/18 06:00 08/08/18 07:00 Temperature Pulse Rate 86 98 H 75 Respiratory Rate Blood Pressure Pulse Oximetry 08/08/18 08:00 08/08/18 09:00 08/08/18 11:00 Temperature 98.4 F Pulse Rate 81 88 90 Respiratory Rate 16 15 Blood Pressure 158/94 H Pulse Oximetry 96 95 08/08/18 12:00 08/08/18 12:24 08/08/18 15:00 Temperature 98.2 F Pulse Rate 81 90 92 H Respiratory Rate 16 15 Blood Pressure 131/71 Pulse Oximetry 94 L 08/08/18 16:00 08/08/18 17:26 Temperature 98.7 F Pulse Rate 61 Respiratory Rate 16 Blood Pressure 134/81 Pulse Oximetry 100 94 L Intake & Output 08/07/18 08/08/18 08/08/18 18:59 06:59 18:59 Intake Total 1941 / 1941 240 / 240 Output Total 650 / 650 Balance 1291 / 1291 240 / 240 Weight 82.4 kg Intake: IV 1101 / 1101 NS Inj 1,000 ML @ 75 mls/hr IV. 851 / 851 CONT .[id number] [facility] Rx#:[id number] Oral 840 / 840 240 / 240 Output: Urine 650 / 650 Other: # Voids 1 Date of Last Bowel Movement 08/06/18 08/07/18 Narrative: GENERAL:Mid aged A/A male ,NAD SKIN: Warm and dry. HEAD: Normocephalic. EYES: No scleral icterus. No injection or drainage. NECK: Supple, trachea midline. No JVD. CARDIOVASCULAR: Regular rate and rhythm without murmurs, gallops, or rubs. RESPIRATORY: Breath sounds equal bilaterally. No wheeze. No accessory muscle use. GASTROINTESTINAL: Abdomen soft, non-tender, nondistended. MUSCULOSKELETAL: No cyanosis, or edema. BACK: Nontender without obvious deformity. No CVA tenderness. Results - Labs CBC & Chem 7: 08/08/18 05:26 08/08/18 05:26 Laboratory Results - last 24 hr 08/07/18 08/08/18 08/08/18 23:43 05:26 05:26 WBC 3.8 L RBC 3.83 L Hgb 12.9 L Hct 37.5 L MCV 98.1 MCH 33.7 MCHC 34.4 RDW 14.4 Plt Count 107 L MPV 8.0 Neut % (Auto) 46.6 Lymph % (Auto) 39.7 [place] % (Auto) 6.1 Eos % (Auto) 6.9 H Baso % (Auto) 0.7 Neut # (Auto) 1.8 Lymph # (Auto) 1.5 [place] # (Auto) 0.2 Eos # (Auto) 0.3 Baso # (Auto) 0.0 WBC Differential . Differential Comment Auto diff final PT 11.1 INR 1.1 APTT 46.7 H Sodium Potassium Chloride Carbon Dioxide Anion Gap BUN Creatinine Estimated GFR POC Glucose 109 Random Glucose Calcium Phosphorus Magnesium Total Bilirubin Direct Bilirubin Indirect Bilirubin AST ALT Alkaline Phosphatase Total Protein Albumin 08/08/18 08/08/18 08/08/18 05:26 05:34 08:36 WBC RBC Hgb Hct MCV MCH MCHC RDW Plt Count MPV Neut % (Auto) Lymph % (Auto) [place]w % (Auto) Eos % (Auto) Baso % (Auto) Neut # (Auto) Lymph # (Auto) [place] # (Auto) Eos # (Auto) Baso # (Auto) WBC Differential Differential Comment PT INR APTT Sodium 142 Potassium 3.4 L Chloride 109 H Carbon Dioxide 24.6 Anion Gap 8 BUN 6 L Creatinine 1.06 Estimated GFR 86 L POC Glucose 109 99 Random Glucose 98 Calcium 8.2 L Phosphorus 4.1 Magnesium 1.6 Total Bilirubin 0.6 Direct Bilirubin 0.2 Indirect Bilirubin 0.4 AST 73 H ALT 64 Alkaline Phosphatase 63 Total Protein 6.6 Albumin 3.3 L 08/08/18 16:21 WBC RBC Hgb Hct MCV MCH MCHC RDW Plt Count MPV Neut % (Auto) Lymph % (Auto) [place] % (Auto) Eos % (Auto) Baso % (Auto) Neut # (Auto) Lymph # (Auto) [place] # (Auto) Eos # (Auto) Baso # (Auto) WBC Differential Differential Comment PT 11.4 INR 1.1 APTT Sodium Potassium Chloride Carbon Dioxide Anion Gap BUN Creatinine Estimated GFR POC Glucose Random Glucose Calcium Phosphorus Magnesium Total Bilirubin Direct Bilirubin Indirect Bilirubin AST ALT Alkaline Phosphatase Total Protein Albumin Assessment and Plan - Assessment (1) DVT (deep venous thrombosis) Code(s): I82.409 - Acute embolism and thrombosis of unspecified deep veins of unspecified lower extremity Status: Acute (2) NSTEMI (non-ST elevated myocardial infarction) Code(s): I21.4 - Non-ST elevation (NSTEMI) myocardial infarction Status: Acute (3) Pulmonary embolism Code(s): I26.99 - Other pulmonary embolism without acute cor pulmonale Status : Acute (4) Hypertension Code(s): I10 - Essential (primary) hypertension Status: Acute - Plan 1. O2 2 L N/C.PRN 2. Cont heparin drip. 3. Coumadin 5 mg daily. 4. Albuterol Nebs qid prn 5. PT INR , daily 6. Home when INR is >2.0 . Will see as OP in 2 weeks
[2018-08-08] MEDS: Heparin Drip 25,000 UNIT/250 ML BAG IV.CONT PRN (20:43)
[2018-08-09] MEDS: Insulin NovoLOG Aspart Correctional Sugar Inj SQ SCH ×4 (00:17→17:55)
--- NOTE | 2018-08-09 01:31 | P.PNCA ---
Subjective Interval history: No events overnight No complaints Medications and Allergies Active Medications: Active Medications Acetaminophen (Tylenol) 650 mg PO Q4H PRN PRN Reason: Temp > 100.4/PAIN 1-10 Last Admin: 08/08/18 21:01 Dose: 650 mg Al Hydroxide/Mg Hydroxide (Milk Of Magnesia Liq) 30 ml PO Q12H PRN PRN Reason: Mild Constipation Albuterol (Duoneb Neb ([facility])) 1 ampul NEB Q6HR WHILE AWAKE NEB [facility] Last Admin: 08/08/18 19:13 Dose: 1 ampul Bisacodyl (Dulcolax Supp) 10 mg RECTAL DAILY PRN PRN Reason: SEVERE CONSITIPATION Chlorhexidine Gluconate (Chlorhexidine 2% Cloth) 3 pack TOPICAL DAILY@0400 YARI Stop: 08/10/18 03:59 Last Admin: 08/08/18 05:23 Dose: Not Given Chlorhexidine Gluconate (Chlorhexidine 2% Cloth) 3 pack TOPICAL DAILY@0400 PRN PRN Reason: Extra cloth needed Stop: 08/10/18 03:59 Dextrose (D50w Vial) 50 ml IV.PUSH UNSCH PRN PRN Reason: PER HYPOGLYCEMIA PROTOCOL Glucagon (Glucagon Inj) 1 mg OTHER PRN PRN PRN Reason: for Hypoglycemia Protocol Heparin Sodium (Porcine) (Heparin Inj) 2,500 units IV.PUSH UNSCH PRN PRN Reason: aPTT 25-39 Heparin Sodium (Porcine) (Heparin Inj) 5,000 units IV.PUSH UNSCH PRN PRN Reason: aPTT < 25 Heparin Sodium/Dextrose (Heparin/D5w 25,000 U/250 Ml) 25,000 unit in 250 mls @ 0 mls/hr IV.CONT TITRATE PRN; Protocol PRN Reason: Per Protocol Last Admin: 08/08/18 20:43 Dose: 800 units/hr, 8 mls/hr Insulin Aspart (Novolog Insulin Correctional Sugar Inj) 0 unit SQ Q6HR [facility]; Protocol Last Admin: 08/09/18 00:17 Dose: Not Given Lactulose (Lactulose Liq) 30 ml PO DAILY PRN PRN Reason: SEVERE CONSITIPATION Ondansetron HCl (Zofran Inj) 4 mg IV.PUSH Q6H PRN PRN Reason: NAUSEA OR VOMITING Last Admin: 08/08/18 05:44 Dose: 4 mg Pantoprazole Sodium (Protonix Inj) 40 mg IV.PUSH Q12H [facility] Last Admin: 08/08/18 14:45 Dose: 40 mg Pharmacy Profile Note (Coumadin Consult Pharmacy) 1 each OTHER UNSCH PRN PRN Reason: PHARMACY DOCUMENTATION Senna/Docusate Sodium (Margoth-Colace) 1 tab PO BID [facility] Last Admin: 08/08/18 22:05 Dose: Not Given Sennosides (Senokot) 17.2 mg PO Q12H PRN PRN Reason: Moderate Constipation Sodium Chloride (Ns Flush) 2 ml IV.FLUSH PRN PRN PRN Reason: FLUSH AFTER USING IV ACCESS Sodium Chloride (Ns Flush) 2 ml IV.FLUSH BID [facility] Last Admin: 08/08/18 22:05 Dose: Not Given Warfarin Sodium (Coumadin) 5 mg PO DAILY@1600 [facility] Last Admin: 08/08/18 16:13 Dose: 5 mg Allergies Allergy/AdvReac Type Severity Reaction Status Date / Time No Known Allergies Allergy Unverified 05/16/18 16:37 Home Medications Medication Instructions Recorded Confirmed Type amlodipine mg PO DAILY 08/03/18 History tramadol mg PO PRN 08/03/18 History Physical Exam Vital signs: Vital Signs 08/08/18 02:00 08/08/18 03:00 08/08/18 04:00 Temperature 98.2 F Pulse Rate 82 83 74 Respiratory Rate 16 Blood Pressure 147/83 H Pulse Oximetry 96 08/08/18 05:00 08/08/18 06:00 08/08/18 07:00 Temperature Pulse Rate 86 98 H 75 Respiratory Rate Blood Pressure Pulse Oximetry 08/08/18 08:00 08/08/18 09:00 08/08/18 10:00 Temperature 98.4 F Pulse Rate 74 84 84 Respiratory Rate 16 15 Blood Pressure 158/94 H Pulse Oximetry 96 95 08/08/18 11:00 08/08/18 12:00 08/08/18 12:24 Temperature 98.2 F Pulse Rate 90 80 90 Respiratory Rate 16 15 Blood Pressure 131/71 Pulse Oximetry 94 L 08/08/18 13:00 08/08/18 14:00 08/08/18 15:00 Temperature Pulse Rate 106 H 98 H 92 H Respiratory Rate Blood Pressure Pulse Oximetry 08/08/18 16:00 08/08/18 17:00 08/08/18 17:26 Temperature 98.7 F Pulse Rate 81 96 H Respiratory Rate 16 Blood Pressure 134/81 Pulse Oximetry 100 94 L 08/08/18 18:00 08/08/18 19:15 08/08/18 20:00 Temperature 98.6 F Pulse Rate 85 77 83 Respiratory Rate 18 18 Blood Pressure 129/82 Pulse Oximetry 97 93 L 08/09/18 00:00 Temperature 98.3 F Pulse Rate 80 Respiratory Rate 18 Blood Pressure 118/68 Pulse Oximetry 91 L Intake & Output 08/08/18 08/08/18 08/09/18 06:59 18:59 06:59 Intake Total 240 / 240 1200 / 1200 250 / 250 Output Total 1500 / 1500 Balance 240 / 240 -300 / -300 250 / 250 Weight 82.4 kg Intake: IV 250 / 250 Heparin/D5W 25,000 U/250 mL 25, 250 / 250 000 unit In 250 ml @ Per Protocol IV.CONT TITRATE PRN Rx #:[id number] Oral 240 / 240 1200 / 1200 Output: Urine 1500 / 1500 Other: # Voids 1 Date of Last Bowel Movement 08/07/18 08/07/18 Narrative: GENERAL:Mid aged A/A male ,NAD SKIN: Warm and dry. HEAD: Normocephalic. EYES: No scleral icterus. No injection or drainage. NECK: Supple, trachea midline. No JVD. CARDIOVASCULAR: Regular rate and rhythm without murmurs, gallops, or rubs. RESPIRATORY: Breath sounds equal bilaterally. No wheeze. No accessory muscle use. GASTROINTESTINAL: Abdomen soft, non-tender, nondistended. MUSCULOSKELETAL: No cyanosis, or edema. BACK: Nontender without obvious deformity. No CVA tenderness. Results 08/08/18 05:26 08/08/18 05:26 Cardiac Enzymes 08/08/18 Range/Units 05:26 AST 73 H (15-37) U/L Coagulation 08/07/18 08/07/18 08/08/18 Range/Units 05:26 11:03 05:26 PT 11.0 11.1 (9.8-11.6) sec APTT 45.1 H 46.7 H (23.4-31.7) sec 08/08/18 Range/Units 16:21 PT 11.4 (9.8-11.6) sec APTT (23.4-31.7) sec CBC 08/08/18 Range/Units 05:26 WBC 3.8 L (4.0-11.0) th/mm3 RBC 3.83 L (4.50-5.90) mil/mm3 Hgb 12.9 L (13.0-17.0) gm/dL Hct 37.5 L (39.0-51.0) % Plt Count 107 L (150-450) th/mm3 Neut # (Auto) 1.8 (1.8-7.7) th/mm3 Lymph # (Auto) 1.5 (1.0-4.8) th/mm3 [place] # (Auto) 0.2 (0.0-0.9) th/mm3 Eos # (Auto) 0.3 (0.0-0.4) th/mm3 Baso # (Auto) 0.0 (0.0-0.2) th/mm3 Comprehensive Metabolic Panel 08/08/18 Range/Units 05:26 Sodium 142 (136-145) meq/L Potassium 3.4 L (3.5-5.1) meq/L Chloride 109 H (98-107) meq/L Carbon Dioxide 24.6 (21.0-32.0) meq/L BUN 6 L (7-18) mg/dL Creatinine 1.06 (0.60-1.30) mg/dL Calcium 8.2 L (8.5-10.1) mg/dL Direct Bilirubin 0.2 (0.0-0.2) mg/dL Indirect Bilirubin 0.4 (0.0-0.8) mg/dL AST 73 H (15-37) U/L ALT 64 (12-78) U/L Alkaline Phosphatase 63 (45-117) U/L Total Protein 6.6 (6.4-8.2) g/dL Albumin 3.3 L (3.4-5.0) g/dL Intake and Output 08/08/18 08/08/18 08/09/18 14:59 22:59 06:59 Intake Total 1450 / 1450 Output Total 1500 / 1500 Balance -50 / -50 Intake: IV 250 / 250 Heparin/D5W 25,000 U/250 mL 25, 250 / 250 000 unit In 250 ml @ Per Protocol IV.CONT TITRATE PRN Rx #:[id number] Oral 1200 / 1200 Output: Urine 1500 / 1500 Other: Date of Last Bowel Movement 08/07/18 08/07/18 Assessment and Plan - Assessment (1) DVT (deep venous thrombosis) Code(s): I82.409 - Acute embolism and thrombosis of unspecified deep veins of unspecified lower extremity Status: Acute (2) NSTEMI (non-ST elevated myocardial infarction) Code(s): I21.4 - Non-ST elevation (NSTEMI) myocardial infarction Status: Acute - Plan 1) DVT/PE with right heart strain s/p TPA, now on heparin drip Plan to transition to Coumadin Unprovoked with previous history of DVT/PE Most likely life-long anticoagulation per Heme/Onc 2) Elevated troponin Type 2 due to right heart strain No further work up necessary 3) Repeat echo with elevated pulmonary pressures, more likely 60mmHg, measurement is over exaggerated RV still dilated Will need repeat echo outpatient to continue to follow
[2018-08-09] MEDS: Acetaminophen 325 MG Tablet PO PRN ×2 (04:47→08:39)
[2018-08-09] MEDS: Pantoprazole Inj 40 MG Vial IV.PUSH SCH ×2 (04:47→13:01)
[2018-08-09] MEDS: Chlorhexidine Gluconate 2% 1 Pack (2 Cloths) TOPICAL SCH (05:02)
[2018-08-09] MEDS: Senna/Docusate Sodium 8.6/50 MG Tablet PO SCH ×2 (08:37→20:47)
--- NOTE | 2018-08-09 09:01 | P.PNPL ---
Subjective Interval history: Patient is sitting up in bed in NAD on 2L Oxygen. On heparin drip. Denies any CP /SOB. Afebrile. Physical Exam Vital signs: Vital Signs 08/08/18 09:00 08/08/18 10:00 08/08/18 11:00 Temperature Pulse Rate 84 84 90 Respiratory Rate 15 Blood Pressure Pulse Oximetry 95 08/08/18 12:00 08/08/18 12:24 08/08/18 13:00 Temperature 98.2 F Pulse Rate 80 90 106 H Respiratory Rate 16 15 Blood Pressure 131/71 Pulse Oximetry 94 L 08/08/18 14:00 08/08/18 15:00 08/08/18 16:00 Temperature 98.7 F Pulse Rate 98 H 92 H 81 Respiratory Rate 16 Blood Pressure 134/81 Pulse Oximetry 100 08/08/18 17:00 08/08/18 17:26 08/08/18 18:00 Temperature Pulse Rate 96 H 85 Respiratory Rate Blood Pressure Pulse Oximetry 94 L 08/08/18 19:00 08/08/18 19:15 08/08/18 20:00 Temperature 98.6 F Pulse Rate 80 77 82 Respiratory Rate 18 18 Blood Pressure 129/82 Pulse Oximetry 97 93 L 08/08/18 21:00 08/08/18 22:00 08/08/18 23:00 Temperature Pulse Rate 78 78 80 Respiratory Rate Blood Pressure Pulse Oximetry 08/09/18 00:00 08/09/18 01:00 08/09/18 02:00 Temperature 98.3 F Pulse Rate 80 74 77 Respiratory Rate 18 Blood Pressure 118/68 Pulse Oximetry 91 L 08/09/18 03:00 08/09/18 04:00 08/09/18 05:00 Temperature 98.5 F Pulse Rate 70 72 76 Respiratory Rate 18 Blood Pressure 129/77 Pulse Oximetry 94 L 08/09/18 06:00 08/09/18 06:08 08/09/18 08:21 Temperature Pulse Rate 83 65 Respiratory Rate 20 16 Blood Pressure Pulse Oximetry 98 Intake & Output 08/08/18 08/09/18 08/09/18 18:59 06:59 18:59 Intake Total 1200 / 1200 730 / 730 Output Total 1500 / 1500 500 / 500 Balance -300 / -300 230 / 230 Weight 82 kg Intake: IV 250 / 250 Heparin/D5W 25,000 U/250 mL 25, 250 / 250 000 unit In 250 ml @ Per Protocol IV.CONT TITRATE PRN Rx #:[id number] Oral 1200 / 1200 480 / 480 Output: Urine 1500 / 1500 500 / 500 Other: Date of Last Bowel Movement 08/07/18 08/07/18 - Constitutional no acute distress, average body habitus - Routine HEENT Exam Head: Present: normocephalic, atraumatic Eye: Present: EOMI, PERRL, normal accommodation, conjunctivae pink ENT: Present: mucous membranes moist - Routine Neck Exam Present: supple, full ROM, trachea midline - Routine Respiratory Exam Present: CTA bilaterally - Routine Cardiovascular Exam Present: RRR, S1, S2 - Routine Abdominal Exam Present: soft, normoactive bowel sounds - Routine Extremities Exam Present: full ROM, pulses intact - Routine Skin Exam Present: intact - Routine Neurological Exam Present: alert, oriented X3, CN II-XII intact Assessment and Plan - Plan 1) Resp Insuff 2)PE/DVT s/p TPA 3)NSTEMI 4)HTN 5)Anemia Plan Continue with oxygen keep sats >92% Bronchodilators Continue heparin drip/Coumadin, d/c Heparin once INR>2.0 INR 1.1 on 08/08 Echo showed EF 55-50%, RVSP 70mmHg, mod-severe TR Heme is following. Continue treatment plan.
[2018-08-09 09:24] LABS: Baso % (Auto) 0.7 % (0.0-2.0); Eos # (Auto) 0.3 th/mm3 (0.0-0.4); Eos % (Auto) 6.6 % (0.0-4.0); Hematocrit 39.7 % (39.0-51.0); Hemoglobin 13.6 gm/dL (13.0-17.0); Lymph # (Auto) 1.6 th/mm3 (1.0-4.8); Lymph % (Auto) 36.9 % (9.0-44.0); Mean Corpuscular HGB Conc 34.2 % (32.0-36.0); Mean Corpuscular Volume 99.4 fL (80.0-100.0); Mono # (Auto) 0.2 th/mm3 (0.0-0.9); Mono % (Auto) 4.9 % (0.0-8.0); Neut # (Auto) 2.2 th/mm3 (1.8-7.7); Neut % (Auto) 50.9 % (16.0-70.0); Platelet Count 116 th/mm3 (150-450); White Blood Count 4.3 th/mm3 (4.0-11.0)
[2018-08-09 09:32] LABS: Activated Partial Thrombo Time 46.4 sec (23.4-31.7); INR 1.2 Ratio; Prothrombin Time 12.6 sec (9.8-11.6)
[2018-08-09 09:47] LABS: Albumin 3.6 g/dL (3.4-5.0); Calcium 8.7 mg/dL (8.5-10.1); Potassium 3.8 meq/L (3.5-5.1)
[2018-08-09 09:52] LABS: Phosphorus 4.1 mg/dL (2.5-4.9)
--- NOTE | 2018-08-09 14:18 | P.PN ---
Subjective Interval history: Follow-up on provoke PE/DVT August 09, 2018-patient seen and examined, denies any chest pain or shortness of breath. Complains of headache. Physical Exam Vital signs: Vital Signs 08/08/18 15:00 08/08/18 16:00 08/08/18 17:00 Temperature 98.7 F Pulse Rate 92 H 81 96 H Respiratory Rate 16 Blood Pressure 134/81 Pulse Oximetry 100 08/08/18 17:26 08/08/18 18:00 08/08/18 19:00 Temperature Pulse Rate 85 80 Respiratory Rate Blood Pressure Pulse Oximetry 94 L 08/08/18 19:15 08/08/18 20:00 08/08/18 21:00 Temperature 98.6 F Pulse Rate 77 82 78 Respiratory Rate 18 18 Blood Pressure 129/82 Pulse Oximetry 97 93 L 08/08/18 22:00 08/08/18 23:00 08/09/18 00:00 Temperature 98.3 F Pulse Rate 78 80 80 Respiratory Rate 18 Blood Pressure 118/68 Pulse Oximetry 91 L 08/09/18 01:00 08/09/18 02:00 08/09/18 03:00 Temperature Pulse Rate 74 77 70 Respiratory Rate Blood Pressure Pulse Oximetry 08/09/18 04:00 08/09/18 05:00 08/09/18 06:00 Temperature 98.5 F Pulse Rate 72 76 83 Respiratory Rate 18 Blood Pressure 129/77 Pulse Oximetry 94 L 08/09/18 06:08 08/09/18 07:00 08/09/18 08:00 Temperature 98.2 F Pulse Rate 70 84 Respiratory Rate 20 18 Blood Pressure 129/84 Pulse Oximetry 96 08/09/18 08:21 08/09/18 09:00 08/09/18 10:00 Temperature Pulse Rate 65 92 H 90 Respiratory Rate 16 Blood Pressure Pulse Oximetry 98 08/09/18 11:00 08/09/18 12:00 Temperature 98.3 F Pulse Rate 102 H 85 Respiratory Rate 18 Blood Pressure 103/63 Pulse Oximetry 96 Intake & Output 08/08/18 08/09/18 08/09/18 18:59 06:59 18:59 Intake Total 1200 / 1200 730 / 730 Output Total 1500 / 1500 500 / 500 Balance -300 / -300 230 / 230 Weight 82 kg Intake: IV 250 / 250 Heparin/D5W 25,000 U/250 mL 25, 250 / 250 000 unit In 250 ml @ Per Protocol IV.CONT TITRATE PRN Rx #:[id number] Oral 1200 / 1200 480 / 480 Output: Urine 1500 / 1500 500 / 500 Other: Date of Last Bowel Movement 08/07/18 08/07/18 Narrative: GENERAL: NAD SKIN: Warm and dry. HEAD: Atraumatic. Normocephalic. EYES: Pupils equal and round. No scleral icterus. No injection or drainage. ENT: No nasal bleeding or discharge. Mucous membranes pink and moist. NECK: Trachea midline. No JVD. CARDIOVASCULAR: Regular rate and rhythm. RESPIRATORY: No accessory muscle use. Clear to auscultation. Breath sounds equal bilaterally. GASTROINTESTINAL: Abdomen soft, non-tender, nondistended. Hepatic and splenic margins not palpable. MUSCULOSKELETAL: Extremities without clubbing, cyanosis, or edema. No obvious deformities. NEUROLOGICAL: Awake and alert. No obvious cranial nerve deficits. Motor grossly within normal limits. Five out of 5 muscle strength in the arms and legs. Normal speech. PSYCHIATRIC: Appropriate mood and affect; insight and judgment normal. Results - Labs CBC & Chem 7: 08/09/18 08:46 08/09/18 08:46 Laboratory Results - last 24 hr 08/08/18 08/09/18 08/09/18 16:21 08:46 08:46 WBC 4.3 RBC 4.00 L Hgb 13.6 Hct 39.7 MCV 99.4 MCH 34.0 MCHC 34.2 RDW 15.0 Plt Count 116 L MPV 8.0 Neut % (Auto) 50.9 Lymph % (Auto) 36.9 [place] % (Auto) 4.9 Eos % (Auto) 6.6 H Baso % (Auto) 0.7 Neut # (Auto) 2.2 Lymph # (Auto) 1.6 [place] # (Auto) 0.2 Eos # (Auto) 0.3 Baso # (Auto) 0.0 WBC Differential . Differential Comment Auto diff final PT 11.4 INR 1.1 APTT Sodium 142 Potassium 3.8 Chloride 106 Carbon Dioxide 25.0 Anion Gap 11 BUN 7 Creatinine 1.20 Estimated GFR 75 L Random Glucose 91 Calcium 8.7 Phosphorus 4.1 Total Bilirubin 0.8 Direct Bilirubin 0.2 Indirect Bilirubin 0.6 AST 104 H ALT 112 H Alkaline Phosphatase 57 Total Protein 7.0 Albumin 3.6 08/09/18 08:46 WBC RBC Hgb Hct MCV MCH MCHC RDW Plt Count MPV Neut % (Auto) Lymph % (Auto) [place] % (Auto) Eos % (Auto) Baso % (Auto) Neut # (Auto) Lymph # (Auto) [place] # (Auto) Eos # (Auto) Baso # (Auto) WBC Differential Differential Comment PT 12.6 H INR 1.2 APTT 46.4 H Sodium Potassium Chloride Carbon Dioxide Anion Gap BUN Creatinine Estimated GFR Random Glucose Calcium Phosphorus Total Bilirubin Direct Bilirubin Indirect Bilirubin AST ALT Alkaline Phosphatase Total Protein Albumin Assessment and Plan - Assessment (1) DVT (deep venous thrombosis) Code(s): I82.409 - Acute embolism and thrombosis of unspecified deep veins of unspecified lower extremity Status: Acute (2) Hypertension Code(s): I10 - Essential (primary) hypertension Status: Acute (3) Pulmonary embolism Code(s): I26.99 - Other pulmonary embolism without acute cor pulmonale Status : Acute - Plan 62-year-old man with Acute unprovoked extensive bilateral pulmonary embolism/DVT Currently on heparin bridge with Coumadin Discontinue heparin for INR greater than 2.0 2D echo right ventricle is moderately dilated. The right ventricular systolic function is mildly decreased. TAPSE not calculated Appreciate input from pulmonary medicine Hypotension-resolved Thrombocytopenia Continue to monitor platelet counts as patient currently on heparin and Coumadin Acute kidney injury-resolved Diabetes type 2 Continue current regiment Hypertension Continue with home medications Headaches Start Motrin as needed PROPH: -Bilateral lower extremity SCDs. IV Protonix -IV Heparin
--- NOTE | 2018-08-09 15:18 | P.PNCA ---
Subjective Interval history: No chest pain/SOB Medications and Allergies Active Medications: Active Medications Acetaminophen (Tylenol) 650 mg PO Q4H PRN PRN Reason: Temp > 100.4/PAIN 1-10 Last Admin: 08/09/18 08:39 Dose: 650 mg Al Hydroxide/Mg Hydroxide (Milk Of Magnesia Liq) 30 ml PO Q12H PRN PRN Reason: Mild Constipation Albuterol (Duoneb Neb ([facility])) 1 ampul NEB Q6HR WHILE AWAKE NEB [facility] Last Admin: 08/09/18 14:15 Dose: 1 ampul Bisacodyl (Dulcolax Supp) 10 mg RECTAL DAILY PRN PRN Reason: SEVERE CONSITIPATION Chlorhexidine Gluconate (Chlorhexidine 2% Cloth) 3 pack TOPICAL DAILY@0400 YARI Stop: 08/10/18 03:59 Last Admin: 08/09/18 05:02 Dose: Not Given Chlorhexidine Gluconate (Chlorhexidine 2% Cloth) 3 pack TOPICAL DAILY@0400 PRN PRN Reason: Extra cloth needed Stop: 08/10/18 03:59 Dextrose (D50w Vial) 50 ml IV.PUSH UNSCH PRN PRN Reason: PER HYPOGLYCEMIA PROTOCOL Glucagon (Glucagon Inj) 1 mg OTHER PRN PRN PRN Reason: for Hypoglycemia Protocol Heparin Sodium (Porcine) (Heparin Inj) 2,500 units IV.PUSH UNSCH PRN PRN Reason: aPTT 25-39 Heparin Sodium (Porcine) (Heparin Inj) 5,000 units IV.PUSH UNSCH PRN PRN Reason: aPTT < 25 Heparin Sodium/Dextrose (Heparin/D5w 25,000 U/250 Ml) 25,000 unit in 250 mls @ 0 mls/hr IV.CONT TITRATE PRN; Protocol PRN Reason: Per Protocol Last Admin: 08/08/18 20:43 Dose: 800 units/hr, 8 mls/hr Ibuprofen (Motrin) 400 mg PO Q6H PRN PRN Reason: HEADACHE Insulin Aspart (Novolog Insulin Correctional Sugar Inj) 0 unit SQ Q6HR [facility]; Protocol Last Admin: 08/09/18 13:01 Dose: Not Given Lactulose (Lactulose Liq) 30 ml PO DAILY PRN PRN Reason: SEVERE CONSITIPATION Ondansetron HCl (Zofran Inj) 4 mg IV.PUSH Q6H PRN PRN Reason: NAUSEA OR VOMITING Last Admin: 08/08/18 05:44 Dose: 4 mg Pantoprazole Sodium (Protonix Inj) 40 mg IV.PUSH Q12H [facility] Last Admin: 08/09/18 13:01 Dose: 40 mg Pharmacy Profile Note (Coumadin Consult Pharmacy) 1 each OTHER UNSCH PRN PRN Reason: PHARMACY DOCUMENTATION Senna/Docusate Sodium (Margoth-Colace) 1 tab PO BID [facility] Last Admin: 08/09/18 08:37 Dose: Not Given Sennosides (Senokot) 17.2 mg PO Q12H PRN PRN Reason: Moderate Constipation Sodium Chloride (Ns Flush) 2 ml IV.FLUSH PRN PRN PRN Reason: FLUSH AFTER USING IV ACCESS Sodium Chloride (Ns Flush) 2 ml IV.FLUSH BID [facility] Last Admin: 08/09/18 08:37 Dose: 2 ml Warfarin Sodium (Coumadin) 7.5 mg PO DAILY@1600 [facility] Allergies Allergy/AdvReac Type Severity Reaction Status Date / Time No Known Allergies Allergy Unverified 05/16/18 16:37 Home Medications Medication Instructions Recorded Confirmed Type amlodipine mg PO DAILY 08/03/18 History tramadol mg PO PRN 08/03/18 History Physical Exam Vital signs: Vital Signs 08/08/18 16:00 08/08/18 17:00 08/08/18 17:26 Temperature 98.7 F Pulse Rate 81 96 H Respiratory Rate 16 Blood Pressure 134/81 Pulse Oximetry 100 94 L 08/08/18 18:00 08/08/18 19:00 08/08/18 19:15 Temperature Pulse Rate 85 80 77 Respiratory Rate 18 Blood Pressure Pulse Oximetry 97 08/08/18 20:00 08/08/18 21:00 08/08/18 22:00 Temperature 98.6 F Pulse Rate 82 78 78 Respiratory Rate 18 Blood Pressure 129/82 Pulse Oximetry 93 L 08/08/18 23:00 08/09/18 00:00 08/09/18 01:00 Temperature 98.3 F Pulse Rate 80 80 74 Respiratory Rate 18 Blood Pressure 118/68 Pulse Oximetry 91 L 08/09/18 02:00 08/09/18 03:00 08/09/18 04:00 Temperature 98.5 F Pulse Rate 77 70 72 Respiratory Rate 18 Blood Pressure 129/77 Pulse Oximetry 94 L 08/09/18 05:00 08/09/18 06:00 08/09/18 06:08 Temperature Pulse Rate 76 83 Respiratory Rate 20 Blood Pressure Pulse Oximetry 08/09/18 07:00 08/09/18 08:00 08/09/18 08:21 Temperature 98.2 F Pulse Rate 70 84 65 Respiratory Rate 18 16 Blood Pressure 129/84 Pulse Oximetry 96 98 08/09/18 09:00 08/09/18 10:00 08/09/18 11:00 Temperature Pulse Rate 92 H 90 102 H Respiratory Rate Blood Pressure Pulse Oximetry 08/09/18 12:00 Temperature 98.3 F Pulse Rate 85 Respiratory Rate 18 Blood Pressure 103/63 Pulse Oximetry 96 Intake & Output 08/08/18 08/09/18 08/09/18 18:59 06:59 18:59 Intake Total 1200 / 1200 730 / 730 Output Total 1500 / 1500 500 / 500 Balance -300 / -300 230 / 230 Weight 82 kg Intake: IV 250 / 250 Heparin/D5W 25,000 U/250 mL 25, 250 / 250 000 unit In 250 ml @ Per Protocol IV.CONT TITRATE PRN Rx #:[id number] Oral 1200 / 1200 480 / 480 Output: Urine 1500 / 1500 500 / 500 Other: Date of Last Bowel Movement 08/07/18 08/07/18 Narrative: GENERAL: NAD SKIN: Warm and dry. HEAD: Atraumatic. Normocephalic. EYES: Pupils equal and round. No scleral icterus. No injection or drainage. ENT: No nasal bleeding or discharge. Mucous membranes pink and moist. NECK: Trachea midline. No JVD. CARDIOVASCULAR: Regular rate and rhythm. RESPIRATORY: No accessory muscle use. Clear to auscultation. Breath sounds equal bilaterally. GASTROINTESTINAL: Abdomen soft, non-tender, nondistended. Hepatic and splenic margins not palpable. MUSCULOSKELETAL: Extremities without clubbing, cyanosis, or edema. No obvious deformities. NEUROLOGICAL: Awake and alert. No obvious cranial nerve deficits. Motor grossly within normal limits. Five out of 5 muscle strength in the arms and legs. Normal speech. PSYCHIATRIC: Appropriate mood and affect; insight and judgment normal. Results 08/09/18 08:46 08/09/18 08:46 Cardiac Enzymes 08/08/18 08/09/18 Range/Units 05:26 08:46 AST 73 H 104 H (15-37) U/L Coagulation 08/08/18 08/08/18 08/09/18 Range/Units 05:26 16:21 08:46 PT 11.1 11.4 12.6 H (9.8-11.6) sec APTT 46.7 H 46.4 H (23.4-31.7) sec CBC 08/08/18 08/09/18 Range/Units 05:26 08:46 WBC 3.8 L 4.3 (4.0-11.0) th/mm3 RBC 3.83 L 4.00 L (4.50-5.90) mil/mm3 Hgb 12.9 L 13.6 (13.0-17.0) gm/dL Hct 37.5 L 39.7 (39.0-51.0) % Plt Count 107 L 116 L (150-450) th/mm3 Neut # (Auto) 1.8 2.2 (1.8-7.7) th/mm3 Lymph # (Auto) 1.5 1.6 (1.0-4.8) th/mm3 [place] # (Auto) 0.2 0.2 (0.0-0.9) th/mm3 Eos # (Auto) 0.3 0.3 (0.0-0.4) th/mm3 Baso # (Auto) 0.0 0.0 (0.0-0.2) th/mm3 Comprehensive Metabolic Panel 08/08/18 08/09/18 Range/Units 05:26 08:46 Sodium 142 142 (136-145) meq/L Potassium 3.4 L 3.8 (3.5-5.1) meq/L Chloride 109 H 106 (98-107) meq/L Carbon Dioxide 24.6 25.0 (21.0-32.0) meq/L BUN 6 L 7 (7-18) mg/dL Creatinine 1.06 1.20 (0.60-1.30) mg/dL Calcium 8.2 L 8.7 (8.5-10.1) mg/dL Direct Bilirubin 0.2 0.2 (0.0-0.2) mg/dL Indirect Bilirubin 0.4 0.6 (0.0-0.8) mg/dL AST 73 H 104 H (15-37) U/L ALT 64 112 H (12-78) U/L Alkaline Phosphatase 63 57 (45-117) U/L Total Protein 6.6 7.0 (6.4-8.2) g/dL Albumin 3.3 L 3.6 (3.4-5.0) g/dL Intake and Output 08/09/18 08/09/18 08/09/18 06:59 14:59 22:59 Intake Total 480 / 480 Output Total 500 / 500 Balance -20 / -20 Intake: Oral 480 / 480 Output: Urine 500 / 500 Other: Weight 82 kg Assessment and Plan - Assessment (1) DVT (deep venous thrombosis) Code(s): I82.409 - Acute embolism and thrombosis of unspecified deep veins of unspecified lower extremity Status: Acute (2) NSTEMI (non-ST elevated myocardial infarction) Code(s): I21.4 - Non-ST elevation (NSTEMI) myocardial infarction Status: Acute - Plan 1) DVT/PE with right heart strain s/p TPA, now on heparin drip Plan to transition to Coumadin INR 1.2, con't to bridge to Coumadin Unprovoked with previous history of DVT/PE Most likely life-long anticoagulation per Heme/Onc 2) Elevated troponin Type 2 due to right heart strain No further work up necessary 3) Repeat echo with elevated pulmonary pressures, more likely 60mmHg, measurement is over exaggerated RV still dilated Will need repeat echo outpatient to continue to follow
[2018-08-09] MEDS: Ibuprofen 400 MG Tablet PO PRN (20:48)
[2018-08-10] MEDS: Insulin NovoLOG Aspart Correctional Sugar Inj SQ SCH ×4 (00:20→17:20)
[2018-08-10] MEDS: Heparin Drip 25,000 UNIT/250 ML BAG IV.CONT PRN (05:31)
[2018-08-10] MEDS: Pantoprazole Inj 40 MG Vial IV.PUSH SCH (05:31)
[2018-08-10 08:58] LABS: Activated Partial Thrombo Time 50.8 sec (23.4-31.7); INR 1.5 Ratio; Prothrombin Time 14.8 sec (9.8-11.6)
--- NOTE | 2018-08-10 09:51 | P.PNPL ---
Subjective Interval history: Patient is lying in bed in NAD. Afebrile, on Heparin drip. Physical Exam Vital signs: Vital Signs 08/09/18 10:00 08/09/18 11:00 08/09/18 12:00 Temperature 98.3 F Pulse Rate 90 102 H 85 Respiratory Rate 18 Blood Pressure 103/63 Pulse Oximetry 96 08/09/18 13:00 08/09/18 14:00 08/09/18 15:00 Temperature Pulse Rate 92 H 86 84 Respiratory Rate Blood Pressure Pulse Oximetry 08/09/18 16:00 08/09/18 17:00 08/09/18 18:00 Temperature 98.4 F Pulse Rate 90 90 90 Respiratory Rate 18 Blood Pressure 131/80 Pulse Oximetry 94 L 08/09/18 19:00 08/09/18 20:00 08/09/18 20:14 Temperature 98.6 F Pulse Rate 79 80 79 Respiratory Rate 20 15 Blood Pressure 134/84 Pulse Oximetry 97 99 08/09/18 21:00 08/09/18 22:00 08/09/18 23:00 Temperature Pulse Rate 81 77 79 Respiratory Rate Blood Pressure Pulse Oximetry 08/09/18 23:54 08/10/18 00:00 08/10/18 01:00 Temperature 98.2 F Pulse Rate 76 76 78 Respiratory Rate 18 Blood Pressure 130/78 Pulse Oximetry 96 08/10/18 02:00 08/10/18 03:00 08/10/18 04:00 Temperature 98.4 F Pulse Rate 81 76 77 Respiratory Rate 18 Blood Pressure 116/69 Pulse Oximetry 95 08/10/18 05:00 08/10/18 05:48 08/10/18 07:00 Temperature Pulse Rate 79 75 74 Respiratory Rate Blood Pressure Pulse Oximetry 08/10/18 07:42 08/10/18 08:00 Temperature 97.5 F L Pulse Rate 78 70 Respiratory Rate 18 18 Blood Pressure 139/83 Pulse Oximetry 95 98 Intake & Output 08/09/18 08/10/18 08/10/18 18:59 06:59 18:59 Intake Total 660 / 660 730 / 730 Output Total 1575 / 1575 1300 / 1300 Balance -915 / -915 -570 / -570 Weight 84.2 kg Intake: IV 250 / 250 Heparin/D5W 25,000 U/250 mL 25, 250 / 250 000 unit In 250 ml @ Per Protocol IV.CONT TITRATE PRN Rx #:[id number] Oral 660 / 660 480 / 480 Output: Urine 1575 / 1575 1300 / 1300 Other: # Voids 3 # Bowel Movements 0 - Constitutional no acute distress, average body habitus - Routine HEENT Exam Head: Present: normocephalic, atraumatic Eye: Present: EOMI, PERRL, normal accommodation, conjunctivae pink ENT: Present: mucous membranes moist - Routine Neck Exam Present: supple, full ROM, trachea midline - Routine Respiratory Exam Present: CTA bilaterally - Routine Cardiovascular Exam Present: RRR, S1, S2 - Routine Abdominal Exam Present: soft, normoactive bowel sounds - Routine Skin Exam Present: intact - Routine Neurological Exam Present: alert, oriented X3, CN II-XII intact Assessment and Plan - Plan 1) Resp Insuff 2)PE/DVT s/p TPA 3)NSTEMI 4)HTN 5)Anemia Plan Continue with oxygen keep sats >92% Bronchodilators Continue heparin drip/Coumadin increased 7.5 mg daily, d/c Heparin once INR>2.0 INR 1.5 today Echo showed EF 55-50%, RVSP 70mmHg, mod-severe TR Heme is following. Continue treatment plan.
--- NOTE | 2018-08-10 12:17 | P.PN ---
Subjective Interval history: Follow-up on provoke PE/DVT August 09, 2018-patient seen and examined, denies any chest pain or shortness of breath. Complains of headache. August 10, 2018-patient seen and examined, reports improvement of headaches denies any shortness of breath. No acute event overnight. Physical Exam Vital signs: Vital Signs 08/09/18 13:00 08/09/18 14:00 08/09/18 15:00 Temperature Pulse Rate 92 H 86 84 Respiratory Rate Blood Pressure Pulse Oximetry 08/09/18 16:00 08/09/18 17:00 08/09/18 18:00 Temperature 98.4 F Pulse Rate 90 90 90 Respiratory Rate 18 Blood Pressure 131/80 Pulse Oximetry 94 L 08/09/18 19:00 08/09/18 20:00 08/09/18 20:14 Temperature 98.6 F Pulse Rate 79 80 79 Respiratory Rate 20 15 Blood Pressure 134/84 Pulse Oximetry 97 99 08/09/18 21:00 08/09/18 22:00 08/09/18 23:00 Temperature Pulse Rate 81 77 79 Respiratory Rate Blood Pressure Pulse Oximetry 08/09/18 23:54 08/10/18 00:00 08/10/18 01:00 Temperature 98.2 F Pulse Rate 76 76 78 Respiratory Rate 18 Blood Pressure 130/78 Pulse Oximetry 96 08/10/18 02:00 08/10/18 03:00 08/10/18 04:00 Temperature 98.4 F Pulse Rate 81 76 77 Respiratory Rate 18 Blood Pressure 116/69 Pulse Oximetry 95 08/10/18 05:00 08/10/18 05:48 08/10/18 07:00 Temperature Pulse Rate 79 75 74 Respiratory Rate Blood Pressure Pulse Oximetry 08/10/18 07:42 08/10/18 08:00 Temperature 97.5 F L Pulse Rate 78 70 Respiratory Rate 18 18 Blood Pressure 139/83 Pulse Oximetry 95 98 Intake & Output 08/09/18 08/10/18 08/10/18 18:59 06:59 18:59 Intake Total 660 / 660 730 / 730 Output Total 1575 / 1575 1300 / 1300 Balance -915 / -915 -570 / -570 Weight 84.2 kg Intake: IV 250 / 250 Heparin/D5W 25,000 U/250 mL 25, 250 / 250 000 unit In 250 ml @ Per Protocol IV.CONT TITRATE PRN Rx #:[id number] Oral 660 / 660 480 / 480 Output: Urine 1575 / 1575 1300 / 1300 Other: # Voids 3 # Bowel Movements 0 Narrative: GENERAL: NAD SKIN: Warm and dry. HEAD: Normocephalic. EYES: No scleral icterus. No injection or drainage. NECK: Supple, trachea midline. No JVD or lymphadenopathy. CARDIOVASCULAR: Regular rate and rhythm without murmurs, gallops, or rubs. RESPIRATORY: Breath sounds equal bilaterally. No accessory muscle use. GASTROINTESTINAL: Abdomen soft, non-tender, nondistended. MUSCULOSKELETAL: No cyanosis, or edema. BACK: Nontender without obvious deformity. No CVA tenderness. Results - Labs CBC & Chem 7: 08/09/18 08:46 08/09/18 08:46 Laboratory Results - last 24 hr 08/10/18 08/10/18 00:13 08:23 PT 14.8 H INR 1.5 APTT 50.8 H POC Glucose 106 Assessment and Plan - Assessment (1) DVT (deep venous thrombosis) Code(s): I82.409 - Acute embolism and thrombosis of unspecified deep veins of unspecified lower extremity Status: Acute (2) Hypertension Code(s): I10 - Essential (primary) hypertension Status: Acute (3) Pulmonary embolism Code(s): I26.99 - Other pulmonary embolism without acute cor pulmonale Status : Acute - Plan 62-year-old man with Acute unprovoked extensive bilateral pulmonary embolism/DVT Currently on heparin bridge with Coumadin 7.5 mg daily Discontinue heparin for INR greater than 2.0. INR today 1.5 2D echo right ventricle is moderately dilated. The right ventricular systolic function is mildly decreased. Appreciate input from pulmonary medicine Hypotension-resolved Thrombocytopenia Continue to monitor platelet counts as patient currently on heparin and Coumadin Acute kidney injury-resolved Diabetes type 2 Continue current regiment Hypertension Continue with home medications Headaches Improved with Motrin as needed PROPH: -Bilateral lower extremity SCDs. PO Protonix -IV Heparin
--- NOTE | 2018-08-10 14:27 | P.PNCA ---
Subjective Interval history: No events overnight No complaints Medications and Allergies Active Medications: Active Medications Acetaminophen (Tylenol) 650 mg PO Q4H PRN PRN Reason: Temp > 100.4/PAIN 1-10 Last Admin: 08/09/18 08:39 Dose: 650 mg Al Hydroxide/Mg Hydroxide (Milk Of [place] Liq) 30 ml PO Q12H PRN PRN Reason: Mild Constipation Albuterol (Duoneb Neb ([facility])) 1 ampul NEB Q6HR WHILE AWAKE NEB [facility] Last Admin: 08/10/18 12:37 Dose: 1 ampul Dextrose (D50w Vial) 50 ml IV.PUSH UNSCH PRN PRN Reason: PER HYPOGLYCEMIA PROTOCOL Glucagon (Glucagon Inj) 1 mg OTHER PRN PRN PRN Reason: for Hypoglycemia Protocol Heparin Sodium (Porcine) (Heparin Inj) 2,500 units IV.PUSH UNSCH PRN PRN Reason: aPTT 25-39 Heparin Sodium (Porcine) (Heparin Inj) 5,000 units IV.PUSH UNSCH PRN PRN Reason: aPTT < 25 Heparin Sodium/Dextrose (Heparin/D5w 25,000 U/250 Ml) 25,000 unit in 250 mls @ 0 mls/hr IV.CONT TITRATE PRN; Protocol PRN Reason: Per Protocol Last Admin: 08/10/18 05:31 Dose: 800 units/hr, 8 mls/hr Ibuprofen (Motrin) 400 mg PO Q6H PRN PRN Reason: HEADACHE Last Admin: 08/09/18 20:48 Dose: 400 mg Insulin Aspart (Novolog Insulin Correctional Sugar Inj) 0 unit SQ Q6HR [facility]; Protocol Last Admin: 08/10/18 05:33 Dose: Not Given Ondansetron HCl (Zofran Inj) 4 mg IV.PUSH Q6H PRN PRN Reason: NAUSEA OR VOMITING Last Admin: 08/08/18 05:44 Dose: 4 mg Pantoprazole Sodium (Protonix) 40 mg PO DAILY [facility] Pharmacy Profile Note (Coumadin Consult Pharmacy) 1 each OTHER UNSCH PRN PRN Reason: PHARMACY DOCUMENTATION Sodium Chloride (Ns Flush) 2 ml IV.FLUSH PRN PRN PRN Reason: FLUSH AFTER USING IV ACCESS Sodium Chloride (Ns Flush) 2 ml IV.FLUSH BID [facility] Last Admin: 08/09/18 20:46 Dose: 2 ml Warfarin Sodium (Coumadin) 7.5 mg PO DAILY@1600 YARI Last Admin: 08/09/18 17:55 Dose: 7.5 mg Allergies Allergy/AdvReac Type Severity Reaction Status Date / Time No Known Allergies Allergy Unverified 05/16/18 16:37 Home Medications Medication Instructions Recorded Confirmed Type amlodipine mg PO DAILY 08/03/18 History tramadol mg PO PRN 08/03/18 History Physical Exam Vital signs: Vital Signs 08/09/18 15:00 08/09/18 16:00 08/09/18 17:00 Temperature 98.4 F Pulse Rate 84 90 90 Respiratory Rate 18 Blood Pressure 131/80 Pulse Oximetry 94 L 08/09/18 18:00 08/09/18 19:00 08/09/18 20:00 Temperature 98.6 F Pulse Rate 90 79 80 Respiratory Rate 20 Blood Pressure 134/84 Pulse Oximetry 97 08/09/18 20:14 08/09/18 21:00 08/09/18 22:00 Temperature Pulse Rate 79 81 77 Respiratory Rate 15 Blood Pressure Pulse Oximetry 99 08/09/18 23:00 08/09/18 23:54 08/10/18 00:00 Temperature 98.2 F Pulse Rate 79 76 76 Respiratory Rate 18 Blood Pressure 130/78 Pulse Oximetry 96 08/10/18 01:00 08/10/18 02:00 08/10/18 03:00 Temperature Pulse Rate 78 81 76 Respiratory Rate Blood Pressure Pulse Oximetry 08/10/18 04:00 08/10/18 05:00 08/10/18 05:48 Temperature 98.4 F Pulse Rate 77 79 75 Respiratory Rate 18 Blood Pressure 116/69 Pulse Oximetry 95 08/10/18 07:00 08/10/18 07:42 08/10/18 08:00 Temperature 97.5 F L Pulse Rate 74 78 74 Respiratory Rate 18 18 Blood Pressure 139/83 Pulse Oximetry 95 93 L 08/10/18 09:00 08/10/18 10:00 08/10/18 11:00 Temperature Pulse Rate 102 H 88 87 Respiratory Rate Blood Pressure Pulse Oximetry 08/10/18 12:00 08/10/18 12:39 Temperature 98.2 F Pulse Rate 80 70 Respiratory Rate 18 18 Blood Pressure 139/78 Pulse Oximetry 93 L Intake & Output 08/09/18 08/10/18 08/10/18 18:59 06:59 18:59 Intake Total 660 / 660 730 / 730 Output Total 1575 / 1575 1300 / 1300 Balance -915 / -915 -570 / -570 Weight 84.2 kg Intake: IV 250 / 250 Heparin/D5W 25,000 U/250 mL 25, 250 / 250 000 unit In 250 ml @ Per Protocol IV.CONT TITRATE PRN Rx #:[id number] Oral 660 / 660 480 / 480 Output: Urine 1575 / 1575 1300 / 1300 Other: # Voids 3 # Bowel Movements 0 Narrative: GENERAL: NAD SKIN: Warm and dry. HEAD: Normocephalic. EYES: No scleral icterus. No injection or drainage. NECK: Supple, trachea midline. No JVD or lymphadenopathy. CARDIOVASCULAR: Regular rate and rhythm without murmurs, gallops, or rubs. RESPIRATORY: Breath sounds equal bilaterally. No accessory muscle use. GASTROINTESTINAL: Abdomen soft, non-tender, nondistended. MUSCULOSKELETAL: No cyanosis, or edema. BACK: Nontender without obvious deformity. No CVA tenderness. Results 08/09/18 08:46 08/09/18 08:46 Cardiac Enzymes 08/09/18 Range/Units 08:46 AST 104 H (15-37) U/L Coagulation 08/08/18 08/09/18 08/10/18 Range/Units 16:21 08:46 08:23 PT 11.4 12.6 H 14.8 H (9.8-11.6) sec APTT 46.4 H 50.8 H (23.4-31.7) sec CBC 08/09/18 Range/Units 08:46 WBC 4.3 (4.0-11.0) th/mm3 RBC 4.00 L (4.50-5.90) mil/mm3 Hgb 13.6 (13.0-17.0) gm/dL Hct 39.7 (39.0-51.0) % Plt Count 116 L (150-450) th/mm3 Neut # (Auto) 2.2 (1.8-7.7) th/mm3 Lymph # (Auto) 1.6 (1.0-4.8) th/mm3 [place] # (Auto) 0.2 (0.0-0.9) th/mm3 Eos # (Auto) 0.3 (0.0-0.4) th/mm3 Baso # (Auto) 0.0 (0.0-0.2) th/mm3 Comprehensive Metabolic Panel 08/09/18 Range/Units 08:46 Sodium 142 (136-145) meq/L Potassium 3.8 (3.5-5.1) meq/L Chloride 106 (98-107) meq/L Carbon Dioxide 25.0 (21.0-32.0) meq/L BUN 7 (7-18) mg/dL Creatinine 1.20 (0.60-1.30) mg/dL Calcium 8.7 (8.5-10.1) mg/dL Direct Bilirubin 0.2 (0.0-0.2) mg/dL Indirect Bilirubin 0.6 (0.0-0.8) mg/dL AST 104 H (15-37) U/L ALT 112 H (12-78) U/L Alkaline Phosphatase 57 (45-117) U/L Total Protein 7.0 (6.4-8.2) g/dL Albumin 3.6 (3.4-5.0) g/dL Intake and Output 08/09/18 08/10/18 08/10/18 22:59 06:59 14:59 Intake Total 660 / 660 730 / 730 Output Total 1575 / 1575 1300 / 1300 Balance -915 / -915 -570 / -570 Intake: IV 250 / 250 Heparin/D5W 25,000 U/250 mL 25, 250 / 250 000 unit In 250 ml @ Per Protocol IV.CONT TITRATE PRN Rx #:[id number] Oral 660 / 660 480 / 480 Output: Urine 1575 / 1575 1300 / 1300 Other: # Voids 3 # Bowel Movements 0 Weight 84.2 kg Assessment and Plan - Assessment (1) DVT (deep venous thrombosis) Code(s): I82.409 - Acute embolism and thrombosis of unspecified deep veins of unspecified lower extremity Status: Acute (2) NSTEMI (non-ST elevated myocardial infarction) Code(s): I21.4 - Non-ST elevation (NSTEMI) myocardial infarction Status: Acute - Plan 1) DVT/PE with right heart strain s/p TPA, now on heparin drip Plan to transition to Coumadin INR 1.5, con't to bridge to Coumadin Unprovoked with previous history of DVT/PE Most likely life-long anticoagulation per Heme/Onc 2) Elevated troponin Type 2 due to right heart strain No further work up necessary 3) Repeat echo with elevated pulmonary pressures, more likely 60mmHg, measurement is over exaggerated RV still dilated Will need repeat echo outpatient to continue to follow 4) Will see PRN, call with questions
[2018-08-10] MEDS: Ibuprofen 400 MG Tablet PO PRN ×2 (14:45→22:52)
[2018-08-10] MEDS: Senna/Docusate Sodium 8.6/50 MG Tablet PO SCH (17:48)
[2018-08-11] MEDS: Insulin NovoLOG Aspart Correctional Sugar Inj SQ SCH ×3 (00:45→13:21)
[2018-08-11 07:45] VITALS: RESP 16
[2018-08-11 07:51] LABS: Activated Partial Thrombo Time 60.4 sec (23.4-31.7); INR 1.9 Ratio; Prothrombin Time 19.4 sec (9.8-11.6)
[2018-08-11] MEDS: Heparin Drip 25,000 UNIT/250 ML BAG IV.CONT PRN (08:20)
[2018-08-11] MEDS: Ibuprofen 400 MG Tablet PO PRN (10:23)
[2018-08-11 10:58] VITALS: TEMP 97.4
[2018-08-11 11:42] VITALS: BP 122/76; O2SAT 65
--- NOTE | 2018-08-11 12:18 | P.PN ---
Subjective Interval history: Follow-up on provoke PE/DVT August 09, 2018-patient seen and examined, denies any chest pain or shortness of breath. Complains of headache. August 10, 2018-patient seen and examined, reports improvement of headaches denies any shortness of breath. No acute event overnight. August 11, 2018-patient seen and examined, INR 1.9. Patient complains of dizziness. Denies any chest pain or shortness of breath. Physical Exam Vital signs: Vital Signs 08/10/18 12:39 08/10/18 13:00 08/10/18 14:00 Temperature Pulse Rate 70 98 H 94 H Respiratory Rate 18 Blood Pressure Pulse Oximetry 08/10/18 15:00 08/10/18 16:00 08/10/18 17:00 Temperature 98.1 F Pulse Rate 89 82 78 Respiratory Rate 18 Blood Pressure 126/89 Pulse Oximetry 96 08/10/18 18:00 08/10/18 19:00 08/10/18 19:53 Temperature Pulse Rate 88 91 H 82 Respiratory Rate 15 Blood Pressure Pulse Oximetry 98 08/10/18 19:58 08/10/18 20:00 08/10/18 21:00 Temperature 98.3 F Pulse Rate 90 87 Respiratory Rate 18 Blood Pressure 140/81 Pulse Oximetry 98 96 08/10/18 21:58 08/10/18 23:00 08/10/18 23:47 Temperature 98.1 F Pulse Rate 85 80 83 Respiratory Rate 18 Blood Pressure 129/84 Pulse Oximetry 95 08/10/18 23:55 08/11/18 01:00 08/11/18 02:00 Temperature Pulse Rate 83 85 81 Respiratory Rate Blood Pressure Pulse Oximetry 08/11/18 03:00 08/11/18 03:55 08/11/18 04:00 Temperature 98.3 F Pulse Rate 85 84 84 Respiratory Rate 18 Blood Pressure 138/81 Pulse Oximetry 97 08/11/18 05:00 08/11/18 06:00 08/11/18 07:00 Temperature Pulse Rate 81 83 87 Respiratory Rate Blood Pressure Pulse Oximetry 08/11/18 07:43 08/11/18 08:00 08/11/18 11:42 Temperature 97.4 F L Pulse Rate 77 91 H 88 Respiratory Rate 16 16 16 Blood Pressure 127/77 122/76 Pulse Oximetry 97 97 65 L Intake & Output 08/10/18 08/11/18 08/11/18 18:59 06:59 18:59 Intake Total 840 / 840 600 / 600 250 / 250 Output Total 1700 / 1700 1200 / 1200 Balance -860 / -860 -600 / -600 250 / 250 Weight 84.6 kg Intake: IV 250 / 250 Heparin/D5W 25,000 U/250 mL 25, 250 / 250 000 unit In 250 ml @ Per Protocol IV.CONT TITRATE PRN Rx #:[id number] Oral 840 / 840 600 / 600 Output: Urine 1700 / 1700 1200 / 1200 Other: # Voids 6 Date of Last Bowel Movement 08/10/18 # Bowel Movements 1 0 Narrative: GENERAL: NAD SKIN: Warm and dry. HEAD: Normocephalic. EYES: No scleral icterus. No injection or drainage. NECK: Supple, trachea midline. No JVD or lymphadenopathy. CARDIOVASCULAR: Regular rate and rhythm without murmurs, gallops, or rubs. RESPIRATORY: Breath sounds equal bilaterally. No accessory muscle use. GASTROINTESTINAL: Abdomen soft, non-tender, nondistended. MUSCULOSKELETAL: No cyanosis, or edema. BACK: Nontender without obvious deformity. No CVA tenderness. Results - Labs CBC & Chem 7: 08/09/18 08:46 08/09/18 08:46 Laboratory Results - last 24 hr 08/10/18 08/11/18 08/11/18 22:51 07:17 11:39 PT 19.4 H INR 1.9 APTT 60.4 H POC Glucose 150 H 105 - Procedures none Assessment and Plan - Assessment (1) DVT (deep venous thrombosis) Code(s): I82.409 - Acute embolism and thrombosis of unspecified deep veins of unspecified lower extremity Status: Acute (2) Hypertension Code(s): I10 - Essential (primary) hypertension Status: Acute (3) Pulmonary embolism Code(s): I26.99 - Other pulmonary embolism without acute cor pulmonale Status : Acute - Plan 62-year-old man with Acute unprovoked extensive bilateral pulmonary embolism/DVT Currently on heparin bridge with Coumadin 7.5 mg daily INR down to 1.9 today, therefore will discontinue heparin bridge and decrease Coumadin to 5 mg daily starting 08/11/18 2D echo right ventricle is moderately dilated. The right ventricular systolic function is mildly decreased. Appreciate input from pulmonary medicine Hypotension-resolved Thrombocytopenia Continue to monitor platelet counts as patient currently on heparin and Coumadin Acute kidney injury-resolved Diabetes type 2 Continue current regiment Hypertension Continue with home medications Headaches Improved with Motrin as needed PROPH: -Bilateral lower extremity SCDs. PO Protonix -Coumadin
--- NOTE | 2018-08-11 12:41 | P.PN ---
Subjective Interval history: SOB Physical Exam Vital signs: Vital Signs 08/10/18 13:00 08/10/18 14:00 08/10/18 15:00 Temperature Pulse Rate 98 H 94 H 89 Respiratory Rate Blood Pressure Pulse Oximetry 08/10/18 16:00 08/10/18 17:00 08/10/18 18:00 Temperature 98.1 F Pulse Rate 82 78 88 Respiratory Rate 18 Blood Pressure 126/89 Pulse Oximetry 96 08/10/18 19:00 08/10/18 19:53 08/10/18 19:58 Temperature Pulse Rate 91 H 82 Respiratory Rate 15 Blood Pressure Pulse Oximetry 98 98 08/10/18 20:00 08/10/18 21:00 08/10/18 21:58 Temperature 98.3 F Pulse Rate 90 87 85 Respiratory Rate 18 Blood Pressure 140/81 Pulse Oximetry 96 08/10/18 23:00 08/10/18 23:47 08/10/18 23:55 Temperature 98.1 F Pulse Rate 80 83 83 Respiratory Rate 18 Blood Pressure 129/84 Pulse Oximetry 95 08/11/18 01:00 08/11/18 02:00 08/11/18 03:00 Temperature Pulse Rate 85 81 85 Respiratory Rate Blood Pressure Pulse Oximetry 08/11/18 03:55 08/11/18 04:00 08/11/18 05:00 Temperature 98.3 F Pulse Rate 84 84 81 Respiratory Rate 18 Blood Pressure 138/81 Pulse Oximetry 97 08/11/18 06:00 08/11/18 07:00 08/11/18 07:43 Temperature Pulse Rate 83 87 77 Respiratory Rate 16 Blood Pressure Pulse Oximetry 97 08/11/18 08:00 08/11/18 11:42 Temperature 97.4 F L Pulse Rate 91 H 88 Respiratory Rate 16 16 Blood Pressure 127/77 122/76 Pulse Oximetry 97 65 L Intake & Output 08/10/18 08/11/18 08/11/18 18:59 06:59 18:59 Intake Total 840 / 840 600 / 600 250 / 250 Output Total 1700 / 1700 1200 / 1200 Balance -860 / -860 -600 / -600 250 / 250 Weight 84.6 kg Intake: IV 250 / 250 Heparin/D5W 25,000 U/250 mL 25, 250 / 250 000 unit In 250 ml @ Per Protocol IV.CONT TITRATE PRN Rx #:[id number] Oral 840 / 840 600 / 600 Output: Urine 1700 / 1700 1200 / 1200 Other: # Voids 6 Date of Last Bowel Movement 08/10/18 # Bowel Movements 1 0 Narrative: GENERAL: NAD SKIN: Warm and dry. HEAD: Normocephalic. EYES: No scleral icterus. No injection or drainage. NECK: Supple, trachea midline. No JVD or lymphadenopathy. CARDIOVASCULAR: Regular rate and rhythm without murmurs, gallops, or rubs. RESPIRATORY: Breath sounds equal bilaterally. No accessory muscle use. GASTROINTESTINAL: Abdomen soft, non-tender, nondistended. MUSCULOSKELETAL: No cyanosis, or edema. BACK: Nontender without obvious deformity. No CVA tenderness. Results - Labs CBC & Chem 7: 08/09/18 08:46 08/09/18 08:46 Laboratory Results - last 24 hr 08/10/18 08/11/18 08/11/18 22:51 07:17 11:39 PT 19.4 H INR 1.9 APTT 60.4 H POC Glucose 150 H 105 - Procedures none Assessment and Plan - Plan PULMONARY EMBOLISM POST TPA O2 NEEDED INCREASE ACTIVITY PO COUMADIN
--- NOTE | 2018-08-11 14:30 | P.DCO ---
- Diagnosis (1) DVT (deep venous thrombosis) Status: Acute (2) Pulmonary embolism Status: Acute - Home Health Nursing Order: Signs/symptoms of disease process, Medication education-adverse effect ( INR/PT monitoring Q3D) - Certification I have seen patient Nestor Almaguer on 08/11/18. My clinical findings support the need for the requested home health care services because: Patient has SOB I certify that my clinical findings support that this patient is homebound because: Poor cardiac reserve
--- NOTE | 2018-08-11 14:41 | P.DS ---
Date of admission: 08/03/18 17:22 Primary care physician: UNKNOWN Brief History from admission: Patient is a very pleasant 62-year-old -[place] male with a past medical history of DVT, PE, diabetes, and hypertension who presents to the emergency room with a complaint of upper abdominal and chest pain as well as shortness of breath. He reports that he had a DVT in his left leg and subsequent PE about 4 or 5 years ago. He has not been on any anticoagulation. He has no other family history of blood disorders other than a father who had leukemia. Denies any knowledge of clotting disorders. He gives a history of damage to his lungs from cleaning products in the past. Non-smoker. He does take medication for his blood pressure but he does not remember what it is and he has been having problems getting medication and testing due to insurance. Currently is mildly short of breath with some continuing chest pain. Reports that it is greatly improved since he got morphine. Denies any swollen or painful extremities. No syncope or dizziness. No nausea vomiting or diarrhea. He does have a right inguinal hernia which periodically pains him but is not bothersome right now. DS: Diagnosis - Discharge Diagnosis (1) DVT (deep venous thrombosis) Status: Acute (2) Pulmonary embolism Status: Acute (3) Hypertension Status: Acute DS: Summary Hospital Course: While in the hospital, patient was treated for: Acute unprovoked extensive bilateral pulmonary embolism/DVT Currently on heparin bridge with Coumadin 7.5 mg daily INR down to 1.9 today, therefore will discontinue heparin bridge and decrease Coumadin to 5 mg daily starting 08/11/18 2D echo right ventricle is moderately dilated. The right ventricular systolic function is mildly decreased. Appreciate input from pulmonary medicine Hypotension-resolved Thrombocytopenia Continue to monitor platelet counts as patient currently on heparin and Coumadin Acute kidney injury-resolved Diabetes type 2 Continue current regiment Hypertension Continue with home medications Headaches Improved with Motrin as needed PROPH: -Bilateral lower extremity SCDs. PO Protonix -Coumadin - Time Spent with Patient Total time spent providing and/or coordinating discharge services: Greater than 30 minutes - Quality: VTE Deep Vein Thrombosis/Pulmonary Embolism Present on Admission: Yes Exam Vital signs: Vital Signs 08/10/18 15:00 08/10/18 16:00 08/10/18 17:00 Temperature 98.1 F Pulse Rate 89 82 78 Respiratory Rate 18 Blood Pressure 126/89 Pulse Oximetry 96 08/10/18 18:00 08/10/18 19:00 08/10/18 19:53 Temperature Pulse Rate 88 91 H 82 Respiratory Rate 15 Blood Pressure Pulse Oximetry 98 08/10/18 19:58 08/10/18 20:00 08/10/18 21:00 Temperature 98.3 F Pulse Rate 90 87 Respiratory Rate 18 Blood Pressure 140/81 Pulse Oximetry 98 96 08/10/18 21:58 08/10/18 23:00 08/10/18 23:47 Temperature 98.1 F Pulse Rate 85 80 83 Respiratory Rate 18 Blood Pressure 129/84 Pulse Oximetry 95 08/10/18 23:55 08/11/18 01:00 08/11/18 02:00 Temperature Pulse Rate 83 85 81 Respiratory Rate Blood Pressure Pulse Oximetry 08/11/18 03:00 08/11/18 03:55 08/11/18 04:00 Temperature 98.3 F Pulse Rate 85 84 84 Respiratory Rate 18 Blood Pressure 138/81 Pulse Oximetry 97 08/11/18 05:00 08/11/18 06:00 08/11/18 07:00 Temperature Pulse Rate 81 83 87 Respiratory Rate Blood Pressure Pulse Oximetry 08/11/18 07:43 08/11/18 08:00 08/11/18 11:42 Temperature 97.4 F L Pulse Rate 77 91 H 88 Respiratory Rate 16 16 16 Blood Pressure 127/77 122/76 Pulse Oximetry 97 97 65 L 08/11/18 13:15 Temperature Pulse Rate 94 H Respiratory Rate 16 Blood Pressure Pulse Oximetry Intake & Output 08/10/18 08/11/18 08/11/18 18:59 06:59 18:59 Intake Total 840 / 840 600 / 600 250 / 250 Output Total 1700 / 1700 1200 / 1200 Balance -860 / -860 -600 / -600 250 / 250 Weight 84.6 kg Intake: IV 250 / 250 Heparin/D5W 25,000 U/250 mL 25, 250 / 250 000 unit In 250 ml @ Per Protocol IV.CONT TITRATE PRN Rx #:[id number] Oral 840 / 840 600 / 600 Output: Urine 1700 / 1700 1200 / 1200 Other: # Voids 6 Date of Last Bowel Movement 08/10/18 # Bowel Movements 1 0 Narrative: GENERAL: NAD SKIN: Warm and dry. HEAD: Normocephalic. EYES: No scleral icterus. No injection or drainage. NECK: Supple, trachea midline. No JVD or lymphadenopathy. CARDIOVASCULAR: Regular rate and rhythm without murmurs, gallops, or rubs. RESPIRATORY: Breath sounds equal bilaterally. No accessory muscle use. GASTROINTESTINAL: Abdomen soft, non-tender, nondistended. MUSCULOSKELETAL: No cyanosis, or edema. BACK: Nontender without obvious deformity. No CVA tenderness. Results Procedures completed during hospitalization: none Labs on day of discharge: Labs from last 24 hours 08/11/18 08/11/18 08/10/18 11:39 07:17 22:51 PT 19.4 H INR 1.9 APTT 60.4 H POC Glucose 105 150 H - Impressions ITS Impressions Venous Doppler Study 08/03/18 00:00 CONCLUSION: 1. Nonocclusive DVT on the right. Chest CTA 08/03/18 15:48 CONCLUSION: 1. Extensive PE. Chest X-Ray 08/06/18 06:00 CONCLUSION: 1. Stable mild cardiomegaly. 2. No focal infiltrate or pulmonary vascular congestion. 3. Degenerative changes throughout the thoracic spine and the bilateral shoulders. 4. Marked subacromial space narrowing bilaterally suggesting rotator cuff pathology bilaterally. Clinical correlation is recommended. Discharge Plan - Discharge Disposition Patient Disposition: W/Home Health Service - Discharge Condition Condition: Fair - Discharge Order Discharge Orders: Discharge Order (Routine); Ordered 08/11/18 Ordered By: Nils Campbell - Discharge Details Anticipated Discharge Date: 08/03/18 - Physicians Team Primary Care Provider: UNKNOWN, Attending Provider: Nils Campbell Other Providers: Theron Gee MD ; Luz Elena Roberts MD ; Ezra Quinonez MD ; Elodia Jesus ; Cristiano Jesus MD
[2018-08-11 15:37] VITALS: PULSE 74
== END 2018-08-11 16:03 | disposition home health service (06) ==
LOC: NEPE 14:29 → NEDA 17:22 → HCPC 20:45 → HIMC 08-04 12:30 → HCIS 08-05 19:11
PROVIDERS: ADMIT Hospitalist; ATTEND Hospitalist